=== PATIENT | male | born 1950 | race African-American/Black ===

== ENCOUNTER 2017-03-11 15:38 | Inpatient (IN) | payer OTHER ==
--- NOTE | 2017-03-11 17:33 | HP ---
CIWA Score - CIWA Score Nausea/Vomitin-Mild Nausea/No Vomiting Muscle Tremors: 4-Moderate,w/Arms Extend Anxiety: 4-Mod. Anxious/Guarded Agitation: 4-Moderately Restless Paroxysmal Sweats: 1-Minimal Palms Moist Orientation: 0-Oriented Tacttile Disturbances: 0-None Auditory Disturbances: 0-None Visual Disturbances: 0-None Headache: 0-None Present CIWA-Ar Total Score: 14 Admission ROS S - HPI Chief Complaint: withdrawal sx Allergies/Adverse Reactions: Allergies Allergy/AdvReac Type Severity Reaction Status Date / Time No Known Allergies Allergy Verified 03/11/17 16:48 History of Present Illness: 66 YEARS OLD MALE WITH LONG HISTORY OF ALCOHOL NICOTINE DEPENDENCE HAS HIV POSITIVE PPD CIRRHOSIS OF LIVER, HEPATITIS C AND DEPRESSION IS ADMITTED TO DETOX Exam Limitations: No Limitations - Ebola screening Have you traveled outside of the country in the last 21 days: No Have you had contact with anyone from an Ebola affected area: No Have you been sick,other than usual withdrawal symptoms: No Do you have a fever: No - Review of Systems Constitutional: Changes in sleep, Weight Stable EENT: reports: No Symptoms Reported Respiratory: reports: SOB with Exertion Cardiac: reports: No Symptoms Reported GI: reports: Constipated, Nausea, Poor Fluid Intake, Abdominal cramping : reports: No Symptoms Reported Musculoskeletal: reports: Muscle Weakness (BOTH KNEES) Integumentary: reports: No Symptoms Reported Neuro: reports: Tremors Endocrine: reports: No Symptoms Reported Hematology: reports: No Symptoms Reported Psychiatric: reports: Judgement Intact, Orientated x3, Anxious, Depressed Other Systems: Reviewed and Negative Patient History - Patient Medical History Hx Anemia: No Hx Asthma: No Hx Chronic Obstructive Pulmonary Disease (COPD): No Hx Cancer: No Hx Cardiac Disorders: No Hx Congestive Heart Failure: No Hx Hypertension: No Hx Hypercholesterolemia: No Hx Pacemaker: No HX Cerebrovascular Accident: No Hx Seizures: No Hx Dementia: No Hx Diabetes: No Hx Gastrointestinal Disorders: Yes (LIVER CIRRHOSIS) Hx Liver Disease: No Hx Genitourinary Disorders: No Hx Sexually Transmitted Disorders: No Hx Renal Disease (ESRD): No Hx Thyroid Disease: No Hx Human Immunodeficiency Virus (HIV): Yes (1990) Hx Hepatitis C: Yes Hx Depression: Yes Hx Suicide Attempt: No Hx Bipolar Disorder: No Hx Schizophrenia: No - Patient Surgical History Past Surgical History: No Hx Neurologic Surgery: No Hx Cataract Extraction: No Hx Cardiac Surgery: No Hx Lung Surgery: No Hx Breast Surgery: No Hx Breast Biopsy: No Hx Abdominal Surgery: No Hx Appendectomy: No Hx Cholecystectomy: No Hx Genitourinary Surgery: No Hx Orthopedic Surgery: No - PPD History Previous Implant?: Yes Documented Results: Positive w/proof Implanted On Prior [facility] Admission?: No PPD to be Administered?: No - Smoking Cessation Smoking history: Current every day smoker Have you smoked in the past 12 months: Yes Aproximately how many cigarettes per day: 20 Cigars Per Day: 0 Hx Chewing Tobacco Use: No Initiated information on smoking cessation: Yes 'Breaking Loose' booklet given: 03/11/17 - Substance & Tx. History Hx Alcohol Use: Yes Hx Substance Use: No Substance Use Type: Alcohol Hx Substance Use Treatment: Yes (11/2015) - Substances Abused Alcohol Route: Oral Frequency: Daily Amount used: LIQUOR- 1 QUART, BEER- 2 SIX PACKS Age of first use: 15 Date of Last Use: 03/11/17 Family Disease History - Family Disease History Family Disease History: Other: Father (), Sister (/ALCOHOL) Admission Physical Exam S - Vital Signs Vital Signs: Vital Signs - 24 hr 03/11/17 16:42 Temperature 98.6 F Pulse Rate 93 H Respiratory 18 Rate Blood Pressure 142/99 - Physical General Appearance: Yes: Appropriately Dressed, Mild Distress, Obese, Tremorous , Irritable, Sweating, Anxious HEENTM: Yes: Hearing grossly Normal, Normal ENT Inspection, Normocephalic, Normal Voice Respiratory: Yes: Chest Non-Tender, No Respiratory Distress, No Accessory Muscle Use, Wheezing Neck: Yes: Supple, Trachea in good position Breast: Yes: Breasts Symetrical Cardiology: Yes: Regular Rhythm, S1, S2, Tachycardia Abdominal: Yes: Non Tender, Soft, Decreased BS Genitourinary: Yes: Within Normal Limits Back: Yes: Normal Inspection Musculoskeletal: Yes: Gait Steady (CANE), Muscle Pain (BOTH KNEES) Extremities: Yes: Non-Tender, Tremors Neurological: Yes: Fully Oriented, Alert, Normal Response, Depressed Affect Integumentary: Yes: Warm Lymphatic: Yes: Within Normal Limits - Diagnostic (1) Alcohol dependence with uncomplicated withdrawal Current Visit: Yes Status: Acute (2) HIV (human immunodeficiency virus infection) Current Visit: Yes Status: Chronic (3) Positive PPD, treated Current Visit: Yes Status: Resolved (4) Nicotine dependence Current Visit: Yes Status: Acute Qualifiers: Nicotine product type: cigarettes Substance use status: in withdrawal Qualified Code(s): F17.213 - Nicotine dependence, cigarettes, with withdrawal (5) Hepatitis C carrier Current Visit: Yes Status: Resolved (6) BPH (benign prostatic hyperplasia) Current Visit: Yes Status: Chronic Qualifiers: Lower urinary tract symptom presence: symptoms present Lower urinary tract symptom detail: post-void dribbling Qualified Code(s): N40.1 - Benign prostatic hyperplasia with lower urinary tract symptoms; N39.43 - Post- void dribbling (7) Depression (emotion) Current Visit: Yes Status: Suspected Qualifiers: Depression Type: dysthymia Qualified Code(s): F34.1 - Dysthymic disorder (8) Constipation Current Visit: Yes Status: Chronic Qualifiers: Constipation type: slow transit constipation Qualified Code(s): K59.01 - Slow transit constipation Cleared for Admission S - Detox or Rehab [facility] Level of Care: Medically Managed Detox Regimen/Protocol: Librium [facility] Breath Alcohol Content Breath Alcohol Content: 0.112 Urine Drug Screen - Results Drug Screen Negative: Yes
[2017-03-11] MEDS ORDERED: MAGNESIUM CITRATE 300 ML BOTTLE PO PRN (17:36)
[2017-03-11] MEDS ORDERED: MAGNESIUM HYDROX 2400MG/30ML ORAL SUSPENSION 30 ML CUP PO PRN (17:36)
[2017-03-11] MEDS ORDERED: guaiFENesin/D-METHORPHAN HB 10 ML UNIT-DOSE CUPS PO PRN (17:36)
[2017-03-11] MEDS ORDERED: diphenhydrAMINE HCL 50 MG CAPSULE PO PRN (17:36)
[2017-03-11] MEDS ORDERED: LOPERAMIDE HCL 2 MG CAPSULE PO PRN (17:36)
[2017-03-11] MEDS ORDERED: MAG HYDROX/AL HYDROX/SIMETH 30 ML UNIT-DOSE CUP PO PRN (17:36)
[2017-03-11] MEDS ORDERED: NICOTINE POLACRILEX 4 MG GUM BC PRN (17:36)
[2017-03-11] MEDS ORDERED: chlordiazePOXIDE HCL 25 MG CAPSULE PO PRN (17:36)
[2017-03-11] MEDS ORDERED: ACETAMINOPHEN 325 MG TABLET (FP) PO PRN (17:36)
[2017-03-11] MEDS ORDERED: P-EPHED 60MG/TRIPROLIDI 2.5MG TABLET PO PRN (17:36)
[2017-03-11] MEDS ORDERED: MENTHOL/PHENOL 1 EACH UD MM PRN (17:36)
[2017-03-11] MEDS ORDERED: hydrOXYzine PAMOATE 50 MG CAPSULE (FP) PO PRN (17:36)
[2017-03-11] MEDS ORDERED: PSYLLIUM 5.85 GM PACKET PO PRN (17:49)
[2017-03-11] MEDS ORDERED: ALBUTEROL SO4 18 GM HFA INHALER IH PRN (17:51)
[2017-03-11] MEDS ORDERED: LACTULOSE 20 GM/30 ML UDC (FOR ORAL USE ONLY) PO PRN (17:58)
[2017-03-11] MEDS: IBUPROFEN 400 MG TABLET (FP) PO PRN (21:20)
[2017-03-11] MEDS: THIAMINE HCL 100 MG TABLET (FP) PO SCH (22:14)
[2017-03-11] MEDS: chlordiazePOXIDE HCL 25 MG CAPSULE PO SCH (22:15)
[2017-03-11] MEDS: TAMSULOSIN HCL 0.4 MG CAP.ER.24H (FP) PO SCH (22:15)
[2017-03-12] MEDS: chlordiazePOXIDE HCL 25 MG CAPSULE PO SCH ×4 (05:46→22:30)
[2017-03-12] MEDS ORDERED: cloNIDine HCL 0.1 MG TABLET PO ONE (08:02)
[2017-03-12 09:45] LABS: MCH 29.4 pg (25.7-33.7); MCHC 32.2 g/dl (32.0-35.9); MEAN CELL VOLUME 91.4 fl (80-96); MEAN PLT VOLUME 9.1 fl (7.5-11.1); PLATELET COUNT 89 K/MM3 (134-434); RDW 20.7 % (11.9-15.9); WHITE BLOOD COUNT 3.4 K/mm3 (4.0-10.0)
[2017-03-12 10:13] LABS: ALBUMIN 3.2 g/dl (3.4-5.0); ANION GAP 6 (8-16); CALCIUM 8.3 mg/dL (8.5-10.1); CO2 26 mmol/L (21-32); GLUCOSE,RANDOM 111 mg/dL (74-106); SGOT/AST 63 U/L (15-37); SGPT/ALT 31 U/L (12-78)
[2017-03-12 10:15] LABS: ALK PHOS 138 U/L (45-117); BILIRUBIN,TOTAL 1.3 mg/dL (0.2-1.0); TOT PROT 7.4 g/dl (6.4-8.2)
[2017-03-12] MEDS: PRENATAL VITAMINS W/ FOLIC ACID TABLET (FP) PO SCH (10:17)
[2017-03-12] MEDS: DARUNAVIR ETHANOLATE 800 MG TAB PO SCH (10:17)
[2017-03-12] MEDS: NICOTINE 21 MG/24 HOURS TOPICAL PATCH TD SCH (10:17)
--- NOTE | 2017-03-12 11:19 | PN ---
[facility] CIWA - CIWA Score Nausea/Vomitin Muscle Tremors: 4-Moderate,w/Arms Extend Anxiety: 5 Agitation: 2 Paroxysmal Sweats: 3 Orientation: 0-Oriented Tacttile Disturbances: 1-Very Mild Itch/Numbness Auditory Disturbances: 0-None Visual Disturbances: 2-Mild Sensitivity Headache: 0-None Present CIWA-Ar Total Score: 20 BHS Progress Note (SOAP) Subjective: Tremors, Body Aches, Interrupted sleep, Sweating, Anxious. Shortly after time of daily assessment, pt. reports discomfort in chest area ( central lower chest / epigastric area) and difficulty breathing starting with the last few minutes. Pt. denies any radiation of pain. Pt. reports that this occurrence has happened in the past and that when it occurred in the past each time it occurred, it resolved on its own without treatment within a short time of onset. Pt. denies any history of Respiratory disorder. Aside from, HTN, pt. denies any history of cardiac disease. Pt. denies any history of stomach disease. Objective: PT. A & O X 3, OBSERVED AMBULATING ON UNIT WITH ASSISTANCE OF A CANE. PT. APPEARS ANXIOUS. LUNG SOUNDS AUSCULTATED CLEAR AND EQUAL BILATERALLY. ECG DONE, RESULTS NOTED. 03/12/17 11:19 Vital Signs Temperature 97.5 F L 03/12/17 09:23 Pulse Rate 85 03/12/17 09:23 Respiratory Rate 18 03/12/17 09:23 Blood Pressure 141/91 03/12/17 09:23 O2 Sat by Pulse Oximetry (%) Laboratory Tests 03/12/17 08:00 WBC 3.4 L RBC 4.21 Hgb 12.4 Hct 38.5 MCV 91.4 MCH 29.4 MCHC 32.2 RDW 20.7 H Plt Count 89 L MPV 9.1 LABS NOTED. RESULTS OF CMP, UA AND RPR PENDING. Assessment: 03/12/17 11:20 WITHDRAWAL SYMPTOMS. Plan: CONTINUE DETOX. REGULARLY SCHEDULED DOSE OF LIBRIUM ADMINISTERED. PRN DOSE OF MYLANTA ADMINISTERED. PER PHARMACIST FROM PT.'S PHARMACY ([email or web address], [place], [place] PT. PRESCRIBED AMLODIPINE AND SPIRONOLACTONE FOR PRIOR TO ADMISSION TO DETOX. START AMLODIPINE, 5 MG PO DAILY (FIRST DOSE NOW) AND SPIRONOLACTONE, 25 MG PO DAILY ( FIRST DOSE NOW) ORDERED FOR HTN. WILL CONTINUE TO MONITOR.
--- NOTE | 2017-03-12 11:24 | CONSULT ---
[facility] Psychiatric Consult - Data Date of interview: 03/12/17 Admission source: [facility] Identifying data: First admission to [facility] for ths 66 y/o AA male seeking detox treatment on for alcohol dependence.Patient is single,a father of three,domiciled,disabled and supported on Public Assistance. Substance Abuse History: Discussed with patient in this interview.Report validated by patient. Smoking Cessation. Smoking history: Current every day smoker. Have you smoked in the past 12 months: Yes. Aproximately how many cigarettes per day: 20. Cigars Per Day: 0. Hx Chewing Tobacco Use: No. Initiated information on smoking cessation: Yes. 'Breaking Loose' booklet given : 03/11/17. - Substance & Tx. History. Hx Alcohol Use: Yes. Hx Substance Use : No. Substance Use Type: Alcohol. Hx Substance Use Treatment: Yes (11/2015). - Substances Abused. Alcohol. Route: Oral. Frequency: Daily. Amount used : LIQUOR- 1 QUART, BEER- 2 SIX PACKS. Age of first use: 15. 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 Psychiatric History: Patient denies. Physical/Sexual Abuse/Trauma History: Patient denies. Additional Comment: Drug Screen is negative. Mental Status Exam - Mental Status Exam Alert and Oriented to: Time, Place, Person Cognitive Function: Good Patient Appearance: Well Groomed Mood: Hopeful, Euthymic Affect: Appropriate, Normal Range Patient Behavior: Fatigued, Cooperative Speech Pattern: Clear, Appropriate Voice Loudness: Normal Thought Process: Goal Oriented Thought Disorder: Not Present Hallucinations: Denies Suicidal Ideation: Denies Homicidal Ideation: Denies Insight/Judgement: Poor Sleep: Poorly, Difficulty falling asleep Appetite: Good Gait/Station: Other (ambulates with cane) Psychiatric Findings - Problem List ([place] 1, 2,3) (1) Alcohol dependence with uncomplicated withdrawal Current Visit: Yes Status: Acute (2) Nicotine dependence Current Visit: Yes Status: Acute Qualifiers: Nicotine product type: cigarettes Substance use status: in withdrawal Qualified Code(s): F17.213 - Nicotine dependence, cigarettes, with withdrawal (3) BPH (benign prostatic hyperplasia) Current Visit: Yes Status: Chronic Qualifiers: Lower urinary tract symptom presence: symptoms present Lower urinary tract symptom detail: post-void dribbling Qualified Code(s): N40.1 - Benign prostatic hyperplasia with lower urinary tract symptoms; R35.0 - Frequency of micturition (4) HIV (human immunodeficiency virus infection) Current Visit: Yes Status: Chronic (5) Hepatitis C carrier Current Visit: Yes Status: Resolved (6) Positive PPD, treated Current Visit: Yes Status: Resolved (7) Insomnia Current Visit: Yes Status: Acute - Initial Treatment Plan Initial Treatment Plan: Psychoeducation.Detoxification in progress.Ambien 5 mg po hs (patient's request).Made aware of potential for parasomnias.Observation.
[2017-03-12] MEDS: amLODIPine BESYLATE 5 MG TABLET (FP) PO SCH (12:43)
[2017-03-12] MEDS: SPIRONOLACTONE 25 MG TABLET (FP) PO SCH (12:44)
[2017-03-12 19:45] LABS: URINE APPEARANCE SLCLOUDY; URINE BILIRUBIN NEGATIVE (NEGATIVE); URINE BLOOD 1+ (NEGATIVE); URINE COLOR AMBER; URINE GLUCOSE (UA) NEGATIVE (NEGATIVE); URINE KETONE TRACE (NEGATIVE); URINE LEUK ESTERASE NEGATIVE (NEGATIVE); URINE NITRITE NEGATIVE (NEGATIVE)
[2017-03-12 19:49] LABS: URINE PROTEIN 1+ (NEGATIVE)
[2017-03-12 19:57] LABS: URINE MUCUS FEW; URINE RBC 53 /hpf (0-3)
[2017-03-12] MEDS: IBUPROFEN 400 MG TABLET (FP) PO PRN (21:30)
[2017-03-12] MEDS: THIAMINE HCL 100 MG TABLET (FP) PO SCH (22:30)
[2017-03-12] MEDS: TAMSULOSIN HCL 0.4 MG CAP.ER.24H (FP) PO SCH (22:30)
[2017-03-12] MEDS: ZOLPIDEM TARTRATE 5 MG TABLET PO PRN (22:34)
[2017-03-13] MEDS: chlordiazePOXIDE HCL 25 MG CAPSULE PO SCH ×3 (05:48→17:18)
--- NOTE | 2017-03-13 09:52 | EKG ---
Test Reason : Blood Pressure : / mmHG Vent. Rate : 090 BPM Atrial Rate : 090 BPM P-R Int : 148 ms QRS Dur : 084 ms QT Int : 388 ms P-R-T Axes : 080 017 066 degrees QTc Int : 474 ms SINUS RHYTHM WITH PREMATURE ATRIAL COMPLEXES POSSIBLE LEFT ATRIAL ENLARGEMENT BORDERLINE ECG NO PREVIOUS ECGS AVAILABLE Confirmed by DEEPTI QUINN MD ([id number]) on 03/13/2017 9:52:01 AM Referred By: Confirmed By:DEEPTI QUINN MD
[2017-03-13] MEDS: amLODIPine BESYLATE 5 MG TABLET (FP) PO SCH (10:16)
[2017-03-13] MEDS: NICOTINE 21 MG/24 HOURS TOPICAL PATCH TD SCH (10:16)
[2017-03-13] MEDS: DARUNAVIR ETHANOLATE 800 MG TAB PO SCH (10:16)
[2017-03-13] MEDS: SPIRONOLACTONE 25 MG TABLET (FP) PO SCH (10:16)
[2017-03-13] MEDS: PRENATAL VITAMINS W/ FOLIC ACID TABLET (FP) PO SCH (10:16)
--- NOTE | 2017-03-13 12:57 | PN ---
[facility] CIWA - CIWA Score Nausea/Vomitin-No Nausea/No Vomiting Muscle Tremors: 3 Anxiety: 2 Agitation: 2 Paroxysmal Sweats: 1-Minimal Palms Moist Orientation: 2-Disoriented Date<2 days Tacttile Disturbances: 2-Mild Itch/Numbness/Burn Auditory Disturbances: 0-None Visual Disturbances: 2-Mild Sensitivity Headache: 0-None Present CIWA-Ar Total Score: 14 S Progress Note (SOAP) Subjective: Interrupted Sleep, Anxious, Body Aches. Objective: PT. A & O X 2 (DISORIENTED ABOUT DAY / DATE). PT. OBSERVED AMBULATING ON UNIT WITH ASSISTANCE OF A CANE. 03/13/17 12:52 Vital Signs Temperature 95.6 F L 03/13/17 09:21 Pulse Rate 68 03/13/17 09:21 Respiratory Rate 18 03/13/17 09:21 Blood Pressure 139/87 03/13/17 09:21 O2 Sat by Pulse Oximetry (%) Laboratory Tests 03/12/17 03/12/17 03/12/17 07:00 07:00 08:00 WBC 3.4 L RBC 4.21 Hgb 12.4 Hct 38.5 MCV 91.4 MCH 29.4 MCHC 32.2 RDW 20.7 H Plt Count 89 L MPV 9.1 Sodium 137 Potassium 3.5 Chloride 105 Carbon Dioxide 26 Anion Gap 6 L BUN 12 Creatinine 1.0 Creat Clearance w eGFR > 60 Random Glucose 111 H Calcium 8.3 L Total Bilirubin 1.3 H AST 63 H ALT 31 Alkaline Phosphatase 138 H Total Protein 7.4 Albumin 3.2 L Urine Color Urine Appearance Urine pH Ur Specific [place] Urine Protein Urine Glucose (UA) Urine Ketones Urine Blood Urine Nitrite Urine Bilirubin Urine Urobilinogen Urine RBC Urine WBC Ur Epithelial Cells Urine Mucus RPR Titer Nonreactive 03/12/17 19:29 WBC RBC Hgb Hct MCV MCH MCHC RDW Plt Count MPV Sodium Potassium Chloride Carbon Dioxide Anion Gap BUN Creatinine Creat Clearance w eGFR Random Glucose Calcium Total Bilirubin AST ALT Alkaline Phosphatase Total Protein Albumin Urine Color Ina Urine Appearance Slcloudy Urine pH 5.0 Ur Specific [place] 1.020 Urine Protein 1+ H Urine Glucose (UA) Negative Urine Ketones Trace H Urine Blood 1+ H Urine Nitrite Negative Urine Bilirubin Negative Urine Urobilinogen 2.0 Urine RBC 53 Urine WBC None Ur Epithelial Cells Rare Urine Mucus Few RPR Titer LABS NOTED. Assessment: 03/13/17 12:55 WITHDRAWAL SYMPTOMS. Plan: CONTINUE DETOX. INCREASE DAILY PO FLUID INTAKE. REPEAT UA; HEPATIC FUNCTION PANEL (03/14/2017) FOR ADMISSION ABNORMALITIES. PATIENT ADVISED TO FOLLOW-UP WITH HUMAN RELATIONS PROFESSOR DR. PECK ([facility]) AFTER DISCHARGE FROM DETOX FOR GENERAL MEDICAL ASSESSMENT AND FOR LOW ADMISSION PLATELET LEVEL.
[2017-03-13] MEDS: IBUPROFEN 400 MG TABLET (FP) PO PRN (17:19)
[2017-03-13] MEDS: ZOLPIDEM TARTRATE 5 MG TABLET PO PRN (22:17)
[2017-03-13] MEDS: THIAMINE HCL 100 MG TABLET (FP) PO SCH (22:18)
[2017-03-13] MEDS: chlordiazePOXIDE 5 MG CAPSULE PO SCH (22:18)
[2017-03-13] MEDS: TAMSULOSIN HCL 0.4 MG CAP.ER.24H (FP) PO SCH (22:18)
[2017-03-14] MEDS: chlordiazePOXIDE 5 MG CAPSULE PO SCH ×3 (05:38→17:29)
[2017-03-14 09:59] LABS: MCHC 31.6 g/dl (32.0-35.9); MEAN CELL VOLUME 91.7 fl (80-96); MEAN PLT VOLUME 9.4 fl (7.5-11.1); PLATELET COUNT 87 K/MM3 (134-434); RDW 20.3 % (11.9-15.9)
[2017-03-14] MEDS: SPIRONOLACTONE 25 MG TABLET (FP) PO SCH (10:20)
[2017-03-14] MEDS: DARUNAVIR ETHANOLATE 800 MG TAB PO SCH (10:20)
[2017-03-14] MEDS: PRENATAL VITAMINS W/ FOLIC ACID TABLET (FP) PO SCH (10:20)
[2017-03-14] MEDS: NICOTINE 21 MG/24 HOURS TOPICAL PATCH TD SCH (10:21)
[2017-03-14] MEDS: amLODIPine BESYLATE 5 MG TABLET (FP) PO SCH (10:21)
[2017-03-14 10:40] LABS: ALBUMIN 3.2 g/dl (3.4-5.0); BILIRUBIN,DIRECT 0.4 mg/dL (0.0-0.2)
--- NOTE | 2017-03-14 11:15 | PN ---
S Progress Note (SOAP) Subjective: ANXIETY,SWEATS,FATIGUE, Objective: 03/14/17 11:13 Vital Signs Temperature 97.0 F L 03/14/17 09:15 Pulse Rate 88 03/14/17 09:15 Respiratory Rate 20 03/14/17 09:15 Blood Pressure 145/89 03/14/17 09:15 O2 Sat by Pulse Oximetry (%) Laboratory Last Values WBC 4.0 K/mm3 (4.0-10.0) 03/14/17 07:00 RBC 4.18 M/mm3 (4.00-5.60) 03/14/17 07:00 Hgb 12.1 GM/dL (11.7-16.9) 03/14/17 07:00 Hct 38.4 % (35.4-49) 03/14/17 07:00 MCV 91.7 fl (80-96) 03/14/17 07:00 MCH 29.0 pg (25.7-33.7) 03/14/17 07:00 MCHC 31.6 g/dl (32.0-35.9) L 03/14/17 07:00 RDW 20.3 % (11.9-15.9) H 03/14/17 07:00 Plt Count 87 K/MM3 (134-434) L 03/14/17 07:00 MPV 9.4 fl (7.5-11.1) 03/14/17 07:00 Neutrophils % No Result Required. 03/14/17 07:00 Lymphocytes % No Result Required. 03/14/17 07:00 Sodium 137 mmol/L (136-145) 03/12/17 07:00 Potassium 3.5 mmol/L (3.5-5.1) 03/12/17 07:00 Chloride 105 mmol/L (98-107) 03/12/17 07:00 Carbon Dioxide 26 mmol/L (21-32) 03/12/17 07:00 Anion Gap 6 (8-16) L 03/12/17 07:00 BUN 12 mg/dL (7-18) 03/12/17 07:00 Creatinine 1.0 mg/dL (0.7-1.3) 03/12/17 07:00 Creat Clearance w eGFR > 60 (>60) 03/12/17 07:00 Random Glucose 111 mg/dL (74-106) H 03/12/17 07:00 Calcium 8.3 mg/dL (8.5-10.1) L 03/12/17 07:00 Total Bilirubin 1.3 mg/dL (0.2-1.0) H 03/12/17 07:00 AST 63 U/L (15-37) H 03/12/17 07:00 ALT 31 U/L (12-78) 03/12/17 07:00 Alkaline Phosphatase 138 U/L (45-117) H 03/12/17 07:00 Total Protein 7.4 g/dl (6.4-8.2) 03/12/17 07:00 Albumin 3.2 g/dl (3.4-5.0) L 03/12/17 07:00 Urine Color Ina 03/12/17 19:29 Urine Appearance Slcloudy 03/12/17 19:29 Urine pH 5.0 (5.0-8.0) 03/12/17 19:29 Ur Specific [place] 1.020 (1.005-1.025) 03/12/17 19:29 Urine Protein 1+ (NEGATIVE) H 03/12/17 19:29 Urine Glucose (UA) Negative (NEGATIVE) 03/12/17 19:29 Urine Ketones Trace (NEGATIVE) H 03/12/17 19:29 Urine Blood 1+ (NEGATIVE) H 03/12/17 19:29 Urine Nitrite Negative (NEGATIVE) 03/12/17 19:29 Urine Bilirubin Negative (NEGATIVE) 03/12/17 19:29 Urine Urobilinogen 2.0 mg/dL (0.2-1.0) 03/12/17 19:29 Urine RBC 53 /hpf (0-3) 03/12/17 19:29 Urine WBC None /hpf (3-5) 03/12/17 19:29 Ur Epithelial Cells Rare /hpf (FEW) 03/12/17 19:29 Urine Mucus Few 03/12/17 19:29 RPR Titer Nonreactive (NONREACTIVE) 03/12/17 07:00 REPEAT ABNORMAL LAB TESTS RESULTS PENDING Assessment: 03/14/17 11:13 WITHDRAWAL SX Plan: CONTINUE DETOX
[2017-03-14] MEDS: TOLNAFTATE 1% CREAM 15 GM TUBE TP SCH ×2 (11:39→22:41)
[2017-03-14 12:04] LABS: BASOPHIL (MANUAL) 1 % (0-2.0); METAMYELOCYTE 1 % (0-2); TOTAL CELLS COUNTED 100
[2017-03-14 12:05] LABS: PLATELET ESTIMATE DECREASED (NORMAL)
[2017-03-14 13:19] LABS: URINE APPEARANCE CLEAR; URINE BILIRUBIN NEGATIVE (NEGATIVE); URINE BLOOD 1+ (NEGATIVE); URINE COLOR YELLOW; URINE GLUCOSE (UA) NEGATIVE (NEGATIVE); URINE KETONE NEGATIVE (NEGATIVE); URINE LEUK ESTERASE NEGATIVE (NEGATIVE); URINE NITRITE NEGATIVE (NEGATIVE); URINE PROTEIN NEGATIVE (NEGATIVE)
[2017-03-14 13:48] LABS: URINE MUCUS RARE; URINE RBC 17 /hpf (0-3)
[2017-03-14] MEDS: IBUPROFEN 400 MG TABLET (FP) PO PRN (17:40)
[2017-03-14] MEDS: THIAMINE HCL 100 MG TABLET (FP) PO SCH (22:41)
[2017-03-14] MEDS: chlordiazePOXIDE HCL 10 MG CAPSULE PO SCH (22:41)
[2017-03-14] MEDS: TAMSULOSIN HCL 0.4 MG CAP.ER.24H (FP) PO SCH (22:41)
[2017-03-14] MEDS: ZOLPIDEM TARTRATE 5 MG TABLET PO PRN (22:41)
[2017-03-15] MEDS: chlordiazePOXIDE HCL 10 MG CAPSULE PO SCH ×3 (05:46→17:21)
[2017-03-15] MEDS: SPIRONOLACTONE 25 MG TABLET (FP) PO SCH (10:32)
[2017-03-15] MEDS: TOLNAFTATE 1% CREAM 15 GM TUBE TP SCH ×2 (10:32→21:38)
[2017-03-15] MEDS: DARUNAVIR ETHANOLATE 800 MG TAB PO SCH (10:32)
[2017-03-15] MEDS: PRENATAL VITAMINS W/ FOLIC ACID TABLET (FP) PO SCH (10:32)
[2017-03-15] MEDS: amLODIPine BESYLATE 5 MG TABLET (FP) PO SCH (10:32)
[2017-03-15] MEDS: NICOTINE 21 MG/24 HOURS TOPICAL PATCH TD SCH (10:34)
--- NOTE | 2017-03-15 14:24 | PN ---
[facility] Progress Note (SOAP) Subjective: Tremors, Diarrhea, Body Aches, Anxious, Fatigue. Objective: PT. A & O X 3, OBSERVED AMBULATING ON UNIT. NO ACUTE DISTRESS. 03/15/17 14:21 Vital Signs Temperature 96.3 F L 03/15/17 13:03 Pulse Rate 94 H 03/15/17 13:03 Respiratory Rate 18 03/15/17 13:03 Blood Pressure 141/72 03/15/17 13:03 O2 Sat by Pulse Oximetry (%) Laboratory Tests 03/12/17 03/12/17 03/12/17 07:00 07:00 08:00 WBC 3.4 L RBC 4.21 Hgb 12.4 Hct 38.5 MCV 91.4 MCH 29.4 MCHC 32.2 RDW 20.7 H Plt Count 89 L MPV 9.1 Total Counted Neutrophils % Neutrophils % (Manual) Lymphocytes % Lymphocytes % (Manual) Monocytes % (Manual) Eosinophils % (Manual) Basophils % (Manual) Platelet Estimate Sodium 137 Potassium 3.5 Chloride 105 Carbon Dioxide 26 Anion Gap 6 L BUN 12 Creatinine 1.0 Creat Clearance w eGFR > 60 Random Glucose 111 H Calcium 8.3 L Total Bilirubin 1.3 H Direct Bilirubin AST 63 H ALT 31 Alkaline Phosphatase 138 H Total Protein 7.4 Albumin 3.2 L Urine Color Urine Appearance Urine pH Ur Specific [place] Urine Protein Urine Glucose (UA) Urine Ketones Urine Blood Urine Nitrite Urine Bilirubin Urine Urobilinogen Urine RBC Urine WBC Ur Epithelial Cells Urine Mucus RPR Titer Nonreactive 03/12/17 03/14/17 03/14/17 19:29 07:00 07:00 WBC 4.0 RBC 4.18 Hgb 12.1 Hct 38.4 MCV 91.7 MCH 29.0 MCHC 31.6 L RDW 20.3 H Plt Count 87 L MPV 9.4 Total Counted 100 Neutrophils % No Result Required. Neutrophils % (Manual) 61 Lymphocytes % No Result Required. Lymphocytes % (Manual) 18 Monocytes % (Manual) 17 H* Eosinophils % (Manual) 2 Basophils % (Manual) 1 Platelet Estimate Decreased Sodium Potassium Chloride Carbon Dioxide Anion Gap BUN Creatinine Creat Clearance w eGFR Random Glucose Calcium Total Bilirubin 1.0 D Direct Bilirubin 0.4 H AST 41 H D ALT 30 Alkaline Phosphatase 175 H D Total Protein 7.0 Albumin 3.2 L Urine Color Ina Urine Appearance Slcloudy Urine pH 5.0 Ur Specific [place] 1.020 Urine Protein 1+ H Urine Glucose (UA) Negative Urine Ketones Trace H Urine Blood 1+ H Urine Nitrite Negative Urine Bilirubin Negative Urine Urobilinogen 2.0 Urine RBC 53 Urine WBC None Ur Epithelial Cells Rare Urine Mucus Few RPR Titer 03/14/17 10:30 WBC RBC Hgb Hct MCV MCH MCHC RDW Plt Count MPV Total Counted Neutrophils % Neutrophils % (Manual) Lymphocytes % Lymphocytes % (Manual) Monocytes % (Manual) Eosinophils % (Manual) Basophils % (Manual) Platelet Estimate Sodium Potassium Chloride Carbon Dioxide Anion Gap BUN Creatinine Creat Clearance w eGFR Random Glucose Calcium Total Bilirubin Direct Bilirubin AST ALT Alkaline Phosphatase Total Protein Albumin Urine Color Yellow Urine Appearance Clear Urine pH 6.0 Ur Specific [place] 1.020 Urine Protein Negative Urine Glucose (UA) Negative Urine Ketones Negative Urine Blood 1+ H Urine Nitrite Negative Urine Bilirubin Negative Urine Urobilinogen 2.0 Urine RBC 17 Urine WBC None Ur Epithelial Cells Urine Mucus Rare RPR Titer LABS NOTED. RESULTS OF HEPATIC FUNCTION PANEL, REPEAT CBC, AND REPEAT UA NOTED. 03/15/17 14:23 Assessment: 03/15/17 14:22 WITHDRAWAL SYMPTOMS. Plan: CONTINUE DETOX. PRN IMMODIUM FOR DIARRHEA.
[2017-03-15] MEDS: IBUPROFEN 400 MG TABLET (FP) PO PRN (19:18)
[2017-03-15] MEDS: THIAMINE HCL 100 MG TABLET (FP) PO SCH (21:37)
[2017-03-15] MEDS: TAMSULOSIN HCL 0.4 MG CAP.ER.24H (FP) PO SCH (21:38)
[2017-03-15] MEDS: ZOLPIDEM TARTRATE 5 MG TABLET PO PRN (21:38)
[2017-03-16] MEDS: DARUNAVIR ETHANOLATE 800 MG TAB PO SCH (10:13)
[2017-03-16] MEDS: PRENATAL VITAMINS W/ FOLIC ACID TABLET (FP) PO SCH (10:13)
[2017-03-16] MEDS: amLODIPine BESYLATE 5 MG TABLET (FP) PO SCH (10:13)
[2017-03-16] MEDS: SPIRONOLACTONE 25 MG TABLET (FP) PO SCH (10:13)
[2017-03-16] MEDS: TOLNAFTATE 1% CREAM 15 GM TUBE TP SCH ×2 (10:14→21:34)
[2017-03-16] MEDS: NICOTINE 21 MG/24 HOURS TOPICAL PATCH TD SCH (10:14)
--- NOTE | 2017-03-16 13:09 | EKG ---
Test Reason : Blood Pressure : / mmHG Vent. Rate : 070 BPM Atrial Rate : 070 BPM P-R Int : 148 ms QRS Dur : 084 ms QT Int : 410 ms P-R-T Axes : 048 -04 046 degrees QTc Int : 442 ms SINUS RHYTHM WITH PREMATURE ATRIAL COMPLEXES IN A PATTERN OF BIGEMINY OTHERWISE NORMAL ECG WHEN COMPARED WITH ECG OF 11-MAR-2017 19:15, NO SIGNIFICANT CHANGE WAS FOUND Confirmed by JHONNY BENDER MD ([id number]) on 03/16/2017 1:08:41 PM Referred By: Confirmed By:JHONNY BENDER MD
[2017-03-16 14:07] VITALS: BMI 29.5
--- NOTE | 2017-03-16 14:32 | DS ---
[facility] Detox Discharge Summary Admission Date: 03/11/17 Discharge Date: 03/16/17 - History Present History: Alcohol Dependence Additional Comments: PATIENT GOING TO [facility] FOR AFTERCARE. PATIENT WAS DISCHARGED FROM DETOX UNIT IN STABLE MEDICAL CONDITION TO BE TRANSFERRED TO REHAB UNIT. Pertinent Past History: BPH, Hep C, Insomnia, Depression, Nicotine Dependence, Liver Cirrhosis, History of Positive PPD (Treated), Constipation, HIV. - Physical Exam Results Vital Signs: Vital Signs Temperature 96.7 F L 03/16/17 13:16 Pulse Rate 90 03/16/17 13:16 Respiratory Rate 18 03/16/17 13:16 Blood Pressure 155/80 03/16/17 13:16 O2 Sat by Pulse Oximetry (%) Pertinent Admission Physical Exam Findings: WITHDRAWAL SYMPTOMS. Laboratory Tests 03/12/17 03/12/17 03/12/17 07:00 07:00 08:00 WBC 3.4 L RBC 4.21 Hgb 12.4 Hct 38.5 MCV 91.4 MCH 29.4 MCHC 32.2 RDW 20.7 H Plt Count 89 L MPV 9.1 Total Counted Neutrophils % Neutrophils % (Manual) Lymphocytes % Lymphocytes % (Manual) Monocytes % (Manual) Eosinophils % (Manual) Basophils % (Manual) Platelet Estimate Sodium 137 Potassium 3.5 Chloride 105 Carbon Dioxide 26 Anion Gap 6 L BUN 12 Creatinine 1.0 Creat Clearance w eGFR > 60 Random Glucose 111 H Calcium 8.3 L Total Bilirubin 1.3 H Direct Bilirubin AST 63 H ALT 31 Alkaline Phosphatase 138 H Total Protein 7.4 Albumin 3.2 L Urine Color Urine Appearance Urine pH Ur Specific [place] Urine Protein Urine Glucose (UA) Urine Ketones Urine Blood Urine Nitrite Urine Bilirubin Urine Urobilinogen Urine RBC Urine WBC Ur Epithelial Cells Urine Mucus RPR Titer Nonreactive 03/12/17 03/14/17 03/14/17 19:29 07:00 07:00 WBC 4.0 RBC 4.18 Hgb 12.1 Hct 38.4 MCV 91.7 MCH 29.0 MCHC 31.6 L RDW 20.3 H Plt Count 87 L MPV 9.4 Total Counted 100 Neutrophils % No Result Required. Neutrophils % (Manual) 61 Lymphocytes % No Result Required. Lymphocytes % (Manual) 18 Monocytes % (Manual) 17 H* Eosinophils % (Manual) 2 Basophils % (Manual) 1 Platelet Estimate Decreased Sodium Potassium Chloride Carbon Dioxide Anion Gap BUN Creatinine Creat Clearance w eGFR Random Glucose Calcium Total Bilirubin 1.0 D Direct Bilirubin 0.4 H AST 41 H D ALT 30 Alkaline Phosphatase 175 H D Total Protein 7.0 Albumin 3.2 L Urine Color In[place] Urine Appearance Slcloudy Urine pH 5.0 Ur Specific [place] 1.020 Urine Protein 1+ H Urine Glucose (UA) Negative Urine Ketones Trace H Urine Blood 1+ H Urine Nitrite Negative Urine Bilirubin Negative Urine Urobilinogen 2.0 Urine RBC 53 Urine WBC None Ur Epithelial Cells Rare Urine Mucus Few RPR Titer 03/14/17 10:30 WBC RBC Hgb Hct MCV MCH MCHC RDW Plt Count MPV Total Counted Neutrophils % Neutrophils % (Manual) Lymphocytes % Lymphocytes % (Manual) Monocytes % (Manual) Eosinophils % (Manual) Basophils % (Manual) Platelet Estimate Sodium Potassium Chloride Carbon Dioxide Anion Gap BUN Creatinine Creat Clearance w eGFR Random Glucose Calcium Total Bilirubin Direct Bilirubin AST ALT Alkaline Phosphatase Total Protein Albumin Urine Color Yellow Urine Appearance Clear Urine pH 6.0 Ur Specific [place] 1.020 Urine Protein Negative Urine Glucose (UA) Negative Urine Ketones Negative Urine Blood 1+ H Urine Nitrite Negative Urine Bilirubin Negative Urine Urobilinogen 2.0 Urine RBC 17 Urine WBC None Ur Epithelial Cells Urine Mucus Rare RPR Titer LABS NOTED. - Treatment Hospital Course: Detox Protocol Followed, Detoxed Safely, Responded well, Discharged Condition Good, Rehab Referral Accepted Patient has Accepted a Rehab Referral to: [facility]. - Medication Discharge Medications: Ambulatory Orders Amlodipine Besylate [Norvasc -] 5 mg PO DAILY 03/16/17 Lamivudine [Epivir -] 300 mg PO DAILY 03/16/17 Spironolactone [Aldactone] 25 mg PO DAILY 03/16/17 Tamsulosin HCl [Flomax] 0.4 mg PO HS 03/16/17 - Diagnosis (1) Alcohol dependence with uncomplicated withdrawal Current Visit: Yes Status: Acute (2) Nicotine dependence Current Visit: Yes Status: Chronic Qualifiers: Nicotine product type: cigarettes Substance use status: in withdrawal Qualified Code(s): F17.213 - Nicotine dependence, cigarettes, with withdrawal (3) HIV (human immunodeficiency virus infection) Current Visit: Yes Status: Chronic (4) BPH (benign prostatic hyperplasia) Current Visit: Yes Status: Chronic Qualifiers: Lower urinary tract symptom presence: symptoms present Lower urinary tract symptom detail: post-void dribbling Qualified Code(s): N40.1 - Benign prostatic hyperplasia with lower urinary tract symptoms; R35.0 - Frequency of micturition (5) Constipation Current Visit: Yes Status: Chronic Qualifiers: Constipation type: slow transit constipation Qualified Code(s): K59.01 - Slow transit constipation (6) Hepatitis C carrier Current Visit: Yes Status: Resolved (7) Positive PPD, treated Current Visit: Yes Status: Resolved (8) Insomnia Current Visit: Yes Status: Acute Qualifiers: Insomnia type: unspecified Qualified Code(s): G47.00 - Insomnia, unspecified (9) Depression (emotion) Current Visit: Yes Status: Suspected Qualifiers: Depression Type: dysthymia Qualified Code(s): F34.1 - Dysthymic disorder - AMA Did Patient Leave Against Medical Advice: No
--- NOTE | 2017-03-16 16:28 | HP ---
[facility] Rehab Assess/Revision - Admission History Admitted to Rehab from: [facility] Date of Admission to Rehab: 03/16/2017 - Vital signs Vital Signs: Vital Signs Period Temp Pulse Resp BP Sys/Decker Pulse Ox Last 24 Hr 96 F-97.9 F 44-103 18-19 133-155/69-84 - Findings Detox History & Physical reviewed: Yes Concur with findings: Yes Comments/Additional Findings: PATIENT'S MEDICAL / MEDICATION HISTORY REVIEWED PRIOR TO DISCHARGE FROM DETOX UNIT. PATIENT DISCHARGED FROM DETOX UNIT IN STABLE MEDICAL CONDITION TO BE TRANSFERRED TO REHAB UNIT. Inpatient Rehab Admission - Initial Determination Are CD services needed?: Yes Free of communicable disease: Yes Not in need of hospitalization: Yes - Rehab Admission Criteria Previous failed treatment: Yes Comorbidities: Yes Patient is meeting Inpatient Rehab admission criteria:: Yes
[2017-03-16] MEDS: IBUPROFEN 400 MG TABLET (FP) PO PRN (17:04)
[2017-03-16] MEDS: THIAMINE HCL 100 MG TABLET (FP) PO SCH (21:33)
[2017-03-16] MEDS: TAMSULOSIN HCL 0.4 MG CAP.ER.24H (FP) PO SCH (21:33)
[2017-03-16] MEDS: SUVOREXANT 10 MG TABLET PO PRN (21:34)
[2017-03-17] MEDS: DARUNAVIR ETHANOLATE 800 MG TAB PO SCH (09:44)
[2017-03-17] MEDS: amLODIPine BESYLATE 5 MG TABLET (FP) PO SCH (09:44)
[2017-03-17] MEDS: PRENATAL VITAMINS W/ FOLIC ACID TABLET (FP) PO SCH (09:44)
[2017-03-17] MEDS: NICOTINE 21 MG/24 HOURS TOPICAL PATCH TD SCH (09:44)
[2017-03-17] MEDS: SPIRONOLACTONE 25 MG TABLET (FP) PO SCH (09:44)
[2017-03-17] MEDS: TOLNAFTATE 1% CREAM 15 GM TUBE TP SCH ×2 (09:45→21:40)
[2017-03-17] MEDS: IBUPROFEN 400 MG TABLET (FP) PO PRN (09:46)
[2017-03-17] MEDS: TAMSULOSIN HCL 0.4 MG CAP.ER.24H (FP) PO SCH (21:40)
[2017-03-17] MEDS: THIAMINE HCL 100 MG TABLET (FP) PO SCH (21:40)
[2017-03-17] MEDS: SUVOREXANT 10 MG TABLET PO PRN (21:41)
[2017-03-18] MEDS: TOLNAFTATE 1% CREAM 15 GM TUBE TP SCH ×2 (11:02→22:48)
[2017-03-18] MEDS: NICOTINE 21 MG/24 HOURS TOPICAL PATCH TD SCH (11:02)
[2017-03-18] MEDS: SPIRONOLACTONE 25 MG TABLET (FP) PO SCH (11:02)
[2017-03-18] MEDS: amLODIPine BESYLATE 5 MG TABLET (FP) PO SCH (11:02)
[2017-03-18] MEDS: PRENATAL VITAMINS W/ FOLIC ACID TABLET (FP) PO SCH (11:02)
[2017-03-18] MEDS: DARUNAVIR ETHANOLATE 800 MG TAB PO SCH (11:02)
[2017-03-18] MEDS: IBUPROFEN 400 MG TABLET (FP) PO PRN (11:29)
--- NOTE | 2017-03-18 14:39 | HP ---
Psychiatrist Admission - Data Date of interview: 03/18/17 Admission source: [address] [place] [address] Identifying data: This is the first admission to [address] [place] [address] for this 67 years old AA single male,domiciled,retired. Medical History: Significant for Cirrhosis of the liver,HIV+,AIDS,Hep C. Psychiatric History: denies Physical/Sexual Abuse/Trauma History: denies Vital Signs: Vital Signs - 24 hr 03/18/17 03/18/17 03/18/17 00:30 03:30 06:19 Temperature 96 F L Pulse Rate 82 Respiratory 18 18 20 Rate Blood Pressure 134/86 03/18/17 11:00 Temperature 97.4 F L Pulse Rate 81 Respiratory 20 Rate Blood Pressure 139/75 Allergies/Adverse Reactions: Allergies Allergy/AdvReac Type Severity Reaction Status Date / Time No Known Allergies Allergy Verified 03/11/17 16:48 Date of last physical exam: 03/18/17 Concur with the findings of this exam: Yes - Substance Abuse/Tx History Hx Alcohol Use: Yes (reports drinking since 15 yo,1 quart of vodka,a few 6 packs of beer daily) Hx Substance Use: Yes Substance Use Type: Alcohol Hx Substance Use Treatment: Yes (longest period of abstinence about 10 years.) Mental Status Exam - Mental Status Exam Alert and Oriented to: Time, Place, Person Cognitive Function: Grossly Intact Patient Appearance: Unkempt Mood: Withdrawn Affect: Constricted Patient Behavior: Passive, Sedated, Fatigued, Cooperative Speech Pattern: Clear Voice Loudness: Mildly Soft/Quiet Thought Process: Goal Oriented Thought Disorder: Not Present Hallucinations: Denies Suicidal Ideation: Denies Homicidal Ideation: Denies Insight/Judgement: Fair Sleep: Difficulty falling asleep Appetite: Poor Muscle strength/Tone: Normal Gait/Station: Deferred Psychiatric Findings - Problem List ([place] 1, 2,3) (1) BPH (benign prostatic hyperplasia) Current Visit: Yes Status: Chronic Qualifiers: Lower urinary tract symptom presence: symptoms present Lower urinary tract symptom detail: post-void dribbling Qualified Code(s): N40.1 - Benign prostatic hyperplasia with lower urinary tract symptoms; N40.1 - Benign prostatic hyperplasia with lower urinary tract symptoms; R35.0 - Frequency of micturition; R35.0 - Frequency of micturition (2) HIV (human immunodeficiency virus infection) Current Visit: Yes Status: Chronic (3) Nicotine dependence Current Visit: Yes Status: Chronic Qualifiers: Nicotine product type: cigarettes Substance use status: in withdrawal Qualified Code(s): F17.213 - Nicotine dependence, cigarettes, with withdrawal; F17.213 - Nicotine dependence, cigarettes, with withdrawal (4) Hepatitis C carrier Current Visit: Yes Status: Resolved (5) Positive PPD, treated Current Visit: Yes Status: Resolved (6) Alcohol dependence Current Visit: Yes Status: Chronic - Initial Treatment Plan Initial Treatment Plan: Patient needs medical reevaluation (weakness,inability to stay out of bed,periods of confusion).Will monitor progress.
--- NOTE | 2017-03-18 14:56 | PN ---
S Progress Note Note: called to see patient c/o fatigue, no complaints other then bilateral knww poli awaiting surgery for knee replacements. Has beent aking sleeping medication which may be causing sedation o/e aand 0 x3, moving slowly a/p: repeat labs, stop sedating medication, ekg bedrest, shirlene bandage, obtain wheelchair for patient, d/w nurse and patient
[2017-03-18] MEDS: THIAMINE HCL 100 MG TABLET (FP) PO SCH (22:48)
[2017-03-18] MEDS: TAMSULOSIN HCL 0.4 MG CAP.ER.24H (FP) PO SCH (22:48)
--- NOTE | 2017-03-18 23:05 | PN ---
[facility] Progress Note Note: RECEIVED NURSE CALL THAT THE PATIENT NEEDS A [facility]ER CONTINUE REHAB
[2017-03-19] MEDS: SPIRONOLACTONE 25 MG TABLET (FP) PO SCH (09:54)
[2017-03-19] MEDS: DARUNAVIR ETHANOLATE 800 MG TAB PO SCH (09:55)
[2017-03-19] MEDS: PRENATAL VITAMINS W/ FOLIC ACID TABLET (FP) PO SCH (09:55)
[2017-03-19] MEDS: amLODIPine BESYLATE 5 MG TABLET (FP) PO SCH (09:55)
[2017-03-19] MEDS: NICOTINE 21 MG/24 HOURS TOPICAL PATCH TD SCH (09:56)
[2017-03-19] MEDS: TOLNAFTATE 1% CREAM 15 GM TUBE TP SCH ×2 (09:57→22:00)
[2017-03-19 15:38] LABS: BASOPHIL 0.9 % (0-2.0); EOSINOPHIL 1.2 % (0-4.5); MCH 30.1 pg (25.7-33.7); MCHC 32.1 g/dl (32.0-35.9); MEAN CELL VOLUME 93.7 fl (80-96); MEAN PLT VOLUME 10.6 fl (7.5-11.1); NEUTROPHILS 48.3 % (42.8-82.8); PLATELET COUNT 100 K/MM3 (134-434); RDW 20.5 % (11.9-15.9); WHITE BLOOD COUNT 4.4 K/mm3 (4.0-10.0)
[2017-03-19 16:05] LABS: ALBUMIN 3.4 g/dl (3.4-5.0); ALK PHOS 161 U/L (45-117); ANION GAP 7 (8-16); BILIRUBIN,TOTAL 0.6 mg/dL (0.2-1.0); CALCIUM 8.6 mg/dL (8.5-10.1); CO2 24 mmol/L (21-32); CREATININE 1.3 mg/dL (0.7-1.3); GLUCOSE,RANDOM 185 mg/dL (74-106); SGPT/ALT 42 U/L (12-78)
[2017-03-19 16:31] LABS: SGOT/AST 50 U/L (15-37)
--- NOTE | 2017-03-19 20:46 | EKG ---
Test Reason : Blood Pressure : / mmHG Vent. Rate : 075 BPM Atrial Rate : 075 BPM P-R Int : 000 ms QRS Dur : 086 ms QT Int : 414 ms P-R-T Axes : 266 011 063 degrees QTc Int : 462 ms BASELINE ARTIFACT SINUS RHYTHM WITH FREQUENT SUPRAVENTRICULAR PREMATURE BEATS NONSPECIFIC ST AND T WAVE ABNORMALITY ABNORMAL ECG WHEN COMPARED WITH ECG OF 12-MAR-2017 10:01, INCREASE IN APCs REPEAT EKG IF CLINICALLY INDICATED Confirmed by MILEY VALENCIA MD ([id number]) on 03/19/2017 8:45:22 PM Referred By: Confirmed By:MILEY VALENCIA MD
[2017-03-19] MEDS: THIAMINE HCL 100 MG TABLET (FP) PO SCH (21:59)
[2017-03-19] MEDS: TAMSULOSIN HCL 0.4 MG CAP.ER.24H (FP) PO SCH (21:59)
[2017-03-20] MEDS: SPIRONOLACTONE 25 MG TABLET (FP) PO SCH (10:25)
[2017-03-20] MEDS: PRENATAL VITAMINS W/ FOLIC ACID TABLET (FP) PO SCH (10:25)
[2017-03-20] MEDS: IBUPROFEN 400 MG TABLET (FP) PO PRN (10:25)
[2017-03-20] MEDS: amLODIPine BESYLATE 5 MG TABLET (FP) PO SCH (10:25)
[2017-03-20] MEDS: DARUNAVIR ETHANOLATE 800 MG TAB PO SCH (10:25)
[2017-03-20] MEDS: NICOTINE 21 MG/24 HOURS TOPICAL PATCH TD SCH (10:26)
[2017-03-20] MEDS: TOLNAFTATE 1% CREAM 15 GM TUBE TP SCH ×2 (10:26→21:39)
[2017-03-20] MEDS: TAMSULOSIN HCL 0.4 MG CAP.ER.24H (FP) PO SCH (21:39)
[2017-03-20] MEDS: THIAMINE HCL 100 MG TABLET (FP) PO SCH (21:39)
[2017-03-21] MEDS: NICOTINE 21 MG/24 HOURS TOPICAL PATCH TD SCH (09:58)
[2017-03-21] MEDS: TOLNAFTATE 1% CREAM 15 GM TUBE TP SCH ×2 (09:58→21:45)
[2017-03-21] MEDS: DARUNAVIR ETHANOLATE 800 MG TAB PO SCH (09:58)
[2017-03-21] MEDS: SPIRONOLACTONE 25 MG TABLET (FP) PO SCH (09:58)
[2017-03-21] MEDS: PRENATAL VITAMINS W/ FOLIC ACID TABLET (FP) PO SCH (09:58)
[2017-03-21] MEDS: amLODIPine BESYLATE 5 MG TABLET (FP) PO SCH (09:58)
[2017-03-21] MEDS: TAMSULOSIN HCL 0.4 MG CAP.ER.24H (FP) PO SCH (21:44)
[2017-03-21] MEDS: THIAMINE HCL 100 MG TABLET (FP) PO SCH (21:44)
[2017-03-22] MEDS: amLODIPine BESYLATE 5 MG TABLET (FP) PO SCH (10:31)
[2017-03-22] MEDS: TOLNAFTATE 1% CREAM 15 GM TUBE TP SCH ×2 (10:31→22:01)
[2017-03-22] MEDS: DARUNAVIR ETHANOLATE 800 MG TAB PO SCH (10:31)
[2017-03-22] MEDS: SPIRONOLACTONE 25 MG TABLET (FP) PO SCH (10:31)
[2017-03-22] MEDS: PRENATAL VITAMINS W/ FOLIC ACID TABLET (FP) PO SCH (10:31)
[2017-03-22] MEDS: NICOTINE 21 MG/24 HOURS TOPICAL PATCH TD SCH (10:32)
[2017-03-22] MEDS: THIAMINE HCL 100 MG TABLET (FP) PO SCH (22:01)
[2017-03-22] MEDS: TAMSULOSIN HCL 0.4 MG CAP.ER.24H (FP) PO SCH (22:01)
[2017-03-23] MEDS: DARUNAVIR ETHANOLATE 800 MG TAB PO SCH (09:42)
[2017-03-23] MEDS: TOLNAFTATE 1% CREAM 15 GM TUBE TP SCH ×2 (09:42→22:09)
[2017-03-23] MEDS: SPIRONOLACTONE 25 MG TABLET (FP) PO SCH (09:42)
[2017-03-23] MEDS: amLODIPine BESYLATE 5 MG TABLET (FP) PO SCH (09:42)
[2017-03-23] MEDS: PRENATAL VITAMINS W/ FOLIC ACID TABLET (FP) PO SCH (09:42)
[2017-03-23] MEDS: NICOTINE 21 MG/24 HOURS TOPICAL PATCH TD SCH (09:43)
[2017-03-23] MEDS: TAMSULOSIN HCL 0.4 MG CAP.ER.24H (FP) PO SCH (22:09)
[2017-03-23] MEDS: THIAMINE HCL 100 MG TABLET (FP) PO SCH (22:09)
[2017-03-24] MEDS: DARUNAVIR ETHANOLATE 800 MG TAB PO SCH (09:43)
[2017-03-24] MEDS: amLODIPine BESYLATE 5 MG TABLET (FP) PO SCH (09:43)
[2017-03-24] MEDS: SPIRONOLACTONE 25 MG TABLET (FP) PO SCH (09:43)
[2017-03-24] MEDS: PRENATAL VITAMINS W/ FOLIC ACID TABLET (FP) PO SCH (09:43)
[2017-03-24] MEDS: NICOTINE 21 MG/24 HOURS TOPICAL PATCH TD SCH (09:45)
[2017-03-24] MEDS: TOLNAFTATE 1% CREAM 15 GM TUBE TP SCH ×2 (09:45→22:08)
[2017-03-24] MEDS: CLOTRIMAZOLE 1% CREAM 15 GM TUBE TP SCH ×2 (15:25→22:08)
[2017-03-24] MEDS: TAMSULOSIN HCL 0.4 MG CAP.ER.24H (FP) PO SCH (22:08)
[2017-03-24] MEDS: THIAMINE HCL 100 MG TABLET (FP) PO SCH (22:08)
[2017-03-25] MEDS: NICOTINE 21 MG/24 HOURS TOPICAL PATCH TD SCH (10:33)
[2017-03-25] MEDS: DARUNAVIR ETHANOLATE 800 MG TAB PO SCH (10:33)
[2017-03-25] MEDS: amLODIPine BESYLATE 5 MG TABLET (FP) PO SCH (10:33)
[2017-03-25] MEDS: SPIRONOLACTONE 25 MG TABLET (FP) PO SCH (10:33)
[2017-03-25] MEDS: PRENATAL VITAMINS W/ FOLIC ACID TABLET (FP) PO SCH (10:33)
[2017-03-25] MEDS: TOLNAFTATE 1% CREAM 15 GM TUBE TP SCH ×2 (11:34→21:41)
[2017-03-25] MEDS: CLOTRIMAZOLE 1% CREAM 15 GM TUBE TP SCH ×2 (11:34→21:42)
[2017-03-25] MEDS: TAMSULOSIN HCL 0.4 MG CAP.ER.24H (FP) PO SCH (21:40)
[2017-03-25] MEDS: THIAMINE HCL 100 MG TABLET (FP) PO SCH (21:41)
[2017-03-26] MEDS: PRENATAL VITAMINS W/ FOLIC ACID TABLET (FP) PO SCH (11:06)
[2017-03-26] MEDS: DARUNAVIR ETHANOLATE 800 MG TAB PO SCH (11:06)
[2017-03-26] MEDS: SPIRONOLACTONE 25 MG TABLET (FP) PO SCH (11:07)
[2017-03-26] MEDS: amLODIPine BESYLATE 5 MG TABLET (FP) PO SCH (11:07)
[2017-03-26] MEDS: TOLNAFTATE 1% CREAM 15 GM TUBE TP SCH ×2 (11:07→21:53)
[2017-03-26] MEDS: NICOTINE 21 MG/24 HOURS TOPICAL PATCH TD SCH (11:09)
[2017-03-26] MEDS: CLOTRIMAZOLE 1% CREAM 15 GM TUBE TP SCH ×2 (11:09→21:52)
[2017-03-26 17:26] LABS: URINE APPEARANCE SLCLOUDY; URINE BILIRUBIN NEGATIVE (NEGATIVE); URINE BLOOD 1+ (NEGATIVE); URINE COLOR AMBER; URINE GLUCOSE (UA) NEGATIVE (NEGATIVE); URINE KETONE NEGATIVE (NEGATIVE); URINE NITRITE NEGATIVE (NEGATIVE); URINE PROTEIN NEGATIVE (NEGATIVE); URINE UROBILINOGEN NEGATIVE mg/dL (0.2-1.0)
[2017-03-26 18:59] LABS: URINE MUCUS FEW; URINE RBC 12 /hpf (0-3); URINE WBC 2 /hpf (3-5)
[2017-03-26 21:42] LABS: URINE LEUK ESTERASE Negative (NEGATIVE)
[2017-03-26] MEDS: THIAMINE HCL 100 MG TABLET (FP) PO SCH (21:51)
[2017-03-26] MEDS: TAMSULOSIN HCL 0.4 MG CAP.ER.24H (FP) PO SCH (21:51)
[2017-03-26] MEDS: diphenhydrAMINE HCL 25 MG CAPSULE (FP) PO PRN (21:52)
[2017-03-27] MEDS: SPIRONOLACTONE 25 MG TABLET (FP) PO SCH (10:39)
[2017-03-27] MEDS: CLOTRIMAZOLE 1% CREAM 15 GM TUBE TP SCH (10:39)
[2017-03-27] MEDS: DARUNAVIR ETHANOLATE 800 MG TAB PO SCH (10:39)
[2017-03-27] MEDS: amLODIPine BESYLATE 5 MG TABLET (FP) PO SCH (10:39)
[2017-03-27] MEDS: PRENATAL VITAMINS W/ FOLIC ACID TABLET (FP) PO SCH (10:40)
[2017-03-27] MEDS: TOLNAFTATE 1% CREAM 15 GM TUBE TP SCH ×2 (10:40→21:33)
[2017-03-27] MEDS: NICOTINE 21 MG/24 HOURS TOPICAL PATCH TD SCH (10:40)
[2017-03-27] MEDS: TAMSULOSIN HCL 0.4 MG CAP.ER.24H (FP) PO SCH (21:30)
[2017-03-27] MEDS: THIAMINE HCL 100 MG TABLET (FP) PO SCH (21:30)
[2017-03-27] MEDS: CLOTRIMAZOLE/BETAMET DIPROP TOPICAL CREAM 45 GM TUBE TP SCH (21:31)
[2017-03-27] MEDS: diphenhydrAMINE HCL 25 MG CAPSULE (FP) PO PRN (21:43)
[2017-03-28] MEDS: SPIRONOLACTONE 25 MG TABLET (FP) PO SCH (10:30)
[2017-03-28] MEDS: amLODIPine BESYLATE 5 MG TABLET (FP) PO SCH (10:30)
[2017-03-28] MEDS: DARUNAVIR ETHANOLATE 800 MG TAB PO SCH (10:30)
[2017-03-28] MEDS: TOLNAFTATE 1% CREAM 15 GM TUBE TP SCH ×2 (10:31→21:36)
[2017-03-28] MEDS: PRENATAL VITAMINS W/ FOLIC ACID TABLET (FP) PO SCH (10:31)
[2017-03-28] MEDS: CLOTRIMAZOLE/BETAMET DIPROP TOPICAL CREAM 45 GM TUBE TP SCH ×2 (10:31→21:33)
[2017-03-28] MEDS: NICOTINE 21 MG/24 HOURS TOPICAL PATCH TD SCH (10:32)
[2017-03-28] MEDS: TAMSULOSIN HCL 0.4 MG CAP.ER.24H (FP) PO SCH (21:32)
[2017-03-28] MEDS: THIAMINE HCL 100 MG TABLET (FP) PO SCH (21:32)
[2017-03-28] MEDS: diphenhydrAMINE HCL 25 MG CAPSULE (FP) PO PRN (21:36)
[2017-03-29] MEDS: DARUNAVIR ETHANOLATE 800 MG TAB PO SCH (10:27)
[2017-03-29] MEDS: CLOTRIMAZOLE/BETAMET DIPROP TOPICAL CREAM 45 GM TUBE TP SCH ×2 (10:27→21:37)
[2017-03-29] MEDS: PRENATAL VITAMINS W/ FOLIC ACID TABLET (FP) PO SCH (10:27)
[2017-03-29] MEDS: NICOTINE 21 MG/24 HOURS TOPICAL PATCH TD SCH (10:27)
[2017-03-29] MEDS: amLODIPine BESYLATE 5 MG TABLET (FP) PO SCH (10:27)
[2017-03-29] MEDS: SPIRONOLACTONE 25 MG TABLET (FP) PO SCH (10:27)
[2017-03-29] MEDS: TOLNAFTATE 1% CREAM 15 GM TUBE TP SCH ×2 (11:35→21:37)
[2017-03-29] MEDS: THIAMINE HCL 100 MG TABLET (FP) PO SCH (21:37)
[2017-03-29] MEDS: TAMSULOSIN HCL 0.4 MG CAP.ER.24H (FP) PO SCH (21:37)
[2017-03-29] MEDS: diphenhydrAMINE HCL 25 MG CAPSULE (FP) PO PRN (21:38)
[2017-03-30] MEDS: DARUNAVIR ETHANOLATE 800 MG TAB PO SCH (09:59)
[2017-03-30] MEDS: PRENATAL VITAMINS W/ FOLIC ACID TABLET (FP) PO SCH (09:59)
[2017-03-30] MEDS: SPIRONOLACTONE 25 MG TABLET (FP) PO SCH (09:59)
[2017-03-30] MEDS: amLODIPine BESYLATE 5 MG TABLET (FP) PO SCH (09:59)
[2017-03-30] MEDS: CLOTRIMAZOLE/BETAMET DIPROP TOPICAL CREAM 45 GM TUBE TP SCH ×2 (10:00→21:31)
[2017-03-30] MEDS: NICOTINE 21 MG/24 HOURS TOPICAL PATCH TD SCH (10:00)
[2017-03-30] MEDS: TOLNAFTATE 1% CREAM 15 GM TUBE TP SCH ×2 (10:00→21:31)
[2017-03-30] MEDS: TAMSULOSIN HCL 0.4 MG CAP.ER.24H (FP) PO SCH (21:31)
[2017-03-30] MEDS: diphenhydrAMINE HCL 25 MG CAPSULE (FP) PO PRN (21:32)
[2017-03-30] MEDS: THIAMINE HCL 100 MG TABLET (FP) PO SCH (21:32)
[2017-03-31] MEDS: DARUNAVIR ETHANOLATE 800 MG TAB PO SCH (09:50)
[2017-03-31] MEDS: SPIRONOLACTONE 25 MG TABLET (FP) PO SCH (09:50)
[2017-03-31] MEDS: amLODIPine BESYLATE 5 MG TABLET (FP) PO SCH (09:50)
[2017-03-31] MEDS: PRENATAL VITAMINS W/ FOLIC ACID TABLET (FP) PO SCH (09:50)
[2017-03-31] MEDS: NICOTINE 21 MG/24 HOURS TOPICAL PATCH TD SCH (09:51)
[2017-03-31] MEDS: CLOTRIMAZOLE/BETAMET DIPROP TOPICAL CREAM 45 GM TUBE TP SCH ×2 (09:51→21:32)
[2017-03-31] MEDS: TOLNAFTATE 1% CREAM 15 GM TUBE TP SCH ×2 (09:52→21:32)
[2017-03-31] MEDS: TAMSULOSIN HCL 0.4 MG CAP.ER.24H (FP) PO SCH (21:31)
[2017-03-31] MEDS: THIAMINE HCL 100 MG TABLET (FP) PO SCH (21:31)
[2017-03-31] MEDS: diphenhydrAMINE HCL 25 MG CAPSULE (FP) PO PRN (21:31)
[2017-04-01] MEDS: NICOTINE 21 MG/24 HOURS TOPICAL PATCH TD SCH (10:18)
[2017-04-01] MEDS: PRENATAL VITAMINS W/ FOLIC ACID TABLET (FP) PO SCH (10:18)
[2017-04-01] MEDS: amLODIPine BESYLATE 5 MG TABLET (FP) PO SCH (10:18)
[2017-04-01] MEDS: DARUNAVIR ETHANOLATE 800 MG TAB PO SCH (10:18)
[2017-04-01] MEDS: SPIRONOLACTONE 25 MG TABLET (FP) PO SCH (10:19)
[2017-04-01] MEDS: CLOTRIMAZOLE/BETAMET DIPROP TOPICAL CREAM 45 GM TUBE TP SCH ×2 (10:19→21:46)
[2017-04-01] MEDS: TOLNAFTATE 1% CREAM 15 GM TUBE TP SCH ×2 (10:20→21:46)
--- NOTE | 2017-04-01 12:49 | PN ---
[facility] Progress Note Note: repeated abnormal u/a - needs to f/u w PCP on discharge
--- NOTE | 2017-04-01 15:36 | PN ---
Psychiatric Progress Note Vital Signs: Vital Signs Period Temp Pulse Resp BP Sys/Decker Pulse Ox Last 24 Hr 97.6 F 79 16-18 130/68 Date of Session: 04/01/17 Chief Complaint:: "can't sleep". HPI: Patient is addression alcohol, nicotine dependence comrbid Insomnia. 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 Current Medications: Active Medications Generic Name Dose Route Start Last Admin Trade Name Freq PRN Reason Stop Dose Admin Acetaminophen 650 mg 03/11/17 17:36 Tylenol - PO Q4H PRN FEVER OR PAIN Al Hydroxide/Mg Hydroxide 30 ml 03/11/17 17:36 03/12/17 10:17 Mylanta Oral Suspension - PO 30 ml Q6H PRN Administration DYSPEPSIA Albuterol Sulfate 2 puff 03/11/17 17:51 Ventolin Hfa Inhaler - IH Q4H PRN SHORT OF BREATH/WHEEZING Amlodipine Besylate 5 mg 03/12/17 11:43 04/01/17 10:18 Norvasc - PO 5 mg DAILY STEPHANIE Administration Clotrimazole 1 applic 03/27/17 22:00 04/01/17 10:19 Lotrisone Cream (Large Tube) - TP 1 applic BID STEPHANIE Administration Darunavir 800 mg 03/12/17 10:00 04/01/17 10:18 Prezista - PO 800 mg DAILY STEPHANIE Administration Diphenhydramine HCl 25 mg 03/21/17 11:58 03/31/17 21:31 Benadryl - PO 25 mg HS PRN Administration INSOMNIA Eucalyptus/Menthol/Phenol/Sorbitol 1 each 03/11/17 17:36 Cepastat Lozenge - MM Q4H PRN SORE THROAT Ibuprofen 400 mg 03/11/17 17:36 03/20/17 10:25 Motrin - PO 400 mg Q6H PRN Administration SEVERE PAIN Lactulose 20 gm 03/11/17 17:58 Cephulac (Oral Use) PO DAILY PRN CONSTIPATION Lamivudine 300 mg 03/12/17 10:00 04/01/17 10:22 Epivir - PO 300 mg DAILY STEPHANIE Administration Loperamide HCl 4 mg 03/11/17 17:36 Imodium - PO Q6H PRN DIARRHEA Magnesium Citrate 300 ml 03/11/17 17:36 Citroma - PO Q48H PRN CONSTIPATION Magnesium Hydroxide 30 ml 03/11/17 17:36 03/12/17 11:04 Milk Of Magnesia - PO 30 ml DAILY PRN Administration CONSTIPATION Nicotine 21 mg 03/12/17 10:00 04/01/17 10:18 Nicoderm Patch - TD 21 mg DAILY STEPHANIE Administration Nicotine Polacrilex 4 mg 03/11/17 17:36 03/11/17 19:43 Nicorette Gum - BC 4 mg Q2H PRN Administration NICOTINE REPLACEMENT RX Multivit/Folic Acid/Iron 1 tab 03/12/17 10:00 04/01/17 10:18 Vitamins (Sjr) - PO 1 tab DAILY STEPHANIE Administration Psyllium Hydrophilic Mucilloid 5.85 gm 03/11/17 17:49 Metamucil (Sugar-Free) - PO DAILY PRN CONSTIPATION Spironolactone 25 mg 03/12/17 11:48 04/01/17 10:19 Aldactone - PO 25 mg DAILY STEPHANIE Administration Tamsulosin HCl 0.4 mg 04/02/17 10:00 Flomax - PO DAILY@1000 STEPHANIE Thiamine HCl 100 mg 03/11/17 22:00 03/31/17 21:31 Vitamin B1 - PO 100 mg HS STEPHANIE Administration Tolnaftate 1 applic 03/14/17 11:35 04/01/17 10:20 Tinactin 1% Cream - TP Not Given BID [facility] Medication(s) Change(s): increase Benadryl 50 mg po hs Current Side Effect: No Lab tests ordered: No Lab tests reviewed: Yes Provider note:: Reviewed the chart 's admission notes appreciated, patient was seen with c/o insomnia, he currently on Benadryl 25 mg po hs and as per pt not effective, discussed indications and properties of Benadryl with the patient, will increase to 50 mg po hs, contineu to monitor progress. Total face to face time:: 15 Mental Status Exam - Mental Status Exam Alert and Oriented to: Time, Place, Person Cognitive Function: Good Patient Appearance: Well Groomed Mood: Hopeful Affect: Appropriate, Mood Congruent Patient Behavior: Appropriate, Cooperative Speech Pattern: Clear, Appropriate Voice Loudness: Normal Thought Process: Intact Thought Disorder: Not Present Hallucinations: Denies Suicidal Ideation: Denies Homicidal Ideation: Denies Insight/Judgement: Fair Sleep: Poorly, Difficulty falling asleep Appetite: Fair Muscle strength/Tone: Normal Gait/Station: Normal Psychiatric Treatment Plan - Problem List (1) Insomnia Current Visit: Yes Qualifiers: Insomnia type: unspecified Qualified Code(s): G47.00 - Insomnia, unspecified; G47.00 - Insomnia, unspecified (2) Alcohol dependence Current Visit: Yes (3) Nicotine dependence Current Visit: Yes Qualifiers: Nicotine product type: cigarettes Substance use status: in withdrawal Qualified Code(s): F17.213 - Nicotine dependence, cigarettes, with withdrawal; F17.213 - Nicotine dependence, cigarettes, with withdrawal
[2017-04-01] MEDS: diphenhydrAMINE HCL 50 MG CAPSULE PO PRN (21:46)
[2017-04-01] MEDS: THIAMINE HCL 100 MG TABLET (FP) PO SCH (21:46)
[2017-04-02] MEDS: amLODIPine BESYLATE 5 MG TABLET (FP) PO SCH (09:54)
[2017-04-02] MEDS: SPIRONOLACTONE 25 MG TABLET (FP) PO SCH (09:55)
[2017-04-02] MEDS: DARUNAVIR ETHANOLATE 800 MG TAB PO SCH (09:55)
[2017-04-02] MEDS: PRENATAL VITAMINS W/ FOLIC ACID TABLET (FP) PO SCH (09:55)
[2017-04-02] MEDS: TOLNAFTATE 1% CREAM 15 GM TUBE TP SCH ×2 (09:55→21:27)
[2017-04-02] MEDS: NICOTINE 21 MG/24 HOURS TOPICAL PATCH TD SCH (09:55)
[2017-04-02] MEDS: TAMSULOSIN HCL 0.4 MG CAP.ER.24H (FP) PO SCH (09:55)
[2017-04-02] MEDS: CLOTRIMAZOLE/BETAMET DIPROP TOPICAL CREAM 45 GM TUBE TP SCH ×2 (09:57→21:27)
--- NOTE | 2017-04-02 11:03 | PN ---
Psychiatric Progress Note Vital Signs: Vital Signs Period Temp Pulse Resp BP Sys/Decker Pulse Ox Last 24 Hr 97.5 F 73 17-18 134/85 Date of Session: 04/02/17 Chief Complaint:: "insomnia" HPI: Patient is addression alcohol, nicotine dependence comrbid Insomnia. 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 Current Medications: Active Medications Generic Name Dose Route Start Last Admin Trade Name Freq PRN Reason Stop Dose Admin Acetaminophen 650 mg 03/11/17 17:36 Tylenol - PO Q4H PRN FEVER OR PAIN Al Hydroxide/Mg Hydroxide 30 ml 03/11/17 17:36 03/12/17 10:17 Mylanta Oral Suspension - PO 30 ml Q6H PRN Administration DYSPEPSIA Albuterol Sulfate 2 puff 03/11/17 17:51 Ventolin Hfa Inhaler - IH Q4H PRN SHORT OF BREATH/WHEEZING Amlodipine Besylate 5 mg 03/12/17 11:43 04/02/17 09:54 Norvasc - PO 5 mg DAILY STEPHANIE Administration Clotrimazole 1 applic 03/27/17 22:00 04/02/17 09:57 Lotrisone Cream (Large Tube) - TP 1 applic BID STEPHANIE Administration Darunavir 800 mg 03/12/17 10:00 04/02/17 09:55 Prezista - PO 800 mg DAILY STEPHANIE Administration Diphenhydramine HCl 50 mg 04/01/17 15:28 04/01/17 21:46 Benadryl - PO 50 mg HS PRN Administration INSOMNIA Eucalyptus/Menthol/Phenol/Sorbitol 1 each 03/11/17 17:36 Cepastat Lozenge - MM Q4H PRN SORE THROAT Ibuprofen 400 mg 03/11/17 17:36 03/20/17 10:25 Motrin - PO 400 mg Q6H PRN Administration SEVERE PAIN Lactulose 20 gm 03/11/17 17:58 Cephulac (Oral Use) PO DAILY PRN CONSTIPATION Lamivudine 300 mg 03/12/17 10:00 04/02/17 09:54 Epivir - PO 300 mg DAILY STEPHANIE Administration Loperamide HCl 4 mg 03/11/17 17:36 Imodium - PO Q6H PRN DIARRHEA Magnesium Citrate 300 ml 03/11/17 17:36 Citroma - PO Q48H PRN CONSTIPATION Magnesium Hydroxide 30 ml 03/11/17 17:36 03/12/17 11:04 Milk Of Magnesia - PO 30 ml DAILY PRN Administration CONSTIPATION Nicotine 21 mg 03/12/17 10:00 04/02/17 09:55 Nicoderm Patch - TD 21 mg DAILY STEPHANIE Administration Nicotine Polacrilex 4 mg 03/11/17 17:36 03/11/17 19:43 Nicorette Gum - BC 4 mg Q2H PRN Administration NICOTINE REPLACEMENT RX Multivit/Folic Acid/Iron 1 tab 03/12/17 10:00 04/02/17 09:55 Vitamins (Sjr) - PO 1 tab DAILY STEPHANIE Administration Psyllium Hydrophilic Mucilloid 5.85 gm 03/11/17 17:49 Metamucil (Sugar-Free) - PO DAILY PRN CONSTIPATION Spironolactone 25 mg 03/12/17 11:48 04/02/17 09:55 Aldactone - PO 25 mg DAILY STEPHANIE Administration Tamsulosin HCl 0.4 mg 04/02/17 10:00 04/02/17 09:55 Flomax - PO 0.4 mg DAILY@1000 STEPHANIE Administration Thiamine HCl 100 mg 03/11/17 22:00 04/01/17 21:46 Vitamin B1 - PO 100 mg HS STEPHANIE Administration Tolnaftate 1 applic 03/14/17 11:35 04/02/17 09:55 Tinactin 1% Cream - TP Not Given BID STEPHANIE Current Side Effect: No Lab tests ordered: No Lab tests reviewed: Yes Provider note:: Patient continue to c/o insomnia, reportts BEnadryl 50 mg pmo hs not effective and he feels tired today becouse was not sleeping "at all", indications and propertieos of Belsomra discussed with the patient will add Belsomra 5 mg po hs, continue to monitor progress. Total face to face time:: 15 Mental Status Exam - Mental Status Exam Alert and Oriented to: Time, Place, Person Cognitive Function: Grossly Intact Patient Appearance: Well Groomed Mood: Sad, Anxious Affect: Appropriate Patient Behavior: Appropriate, Cooperative Speech Pattern: Clear, Appropriate Voice Loudness: Normal Thought Process: Intact Hallucinations: Denies Suicidal Ideation: Denies Homicidal Ideation: Denies Insight/Judgement: Fair Sleep: Poorly, Difficulty falling asleep Appetite: Fair Gait/Station: Other (in wheelchair) Psychiatric Treatment Plan - Problem List (1) Insomnia Current Visit: Yes Qualifiers: Insomnia type: unspecified Qualified Code(s): G47.00 - Insomnia, unspecified; G47.00 - Insomnia, unspecified (2) Alcohol dependence Current Visit: Yes (3) Nicotine dependence Current Visit: Yes Qualifiers: Nicotine product type: cigarettes Substance use status: in withdrawal Qualified Code(s): F17.213 - Nicotine dependence, cigarettes, with withdrawal; F17.213 - Nicotine dependence, cigarettes, with withdrawal
[2017-04-02] MEDS: THIAMINE HCL 100 MG TABLET (FP) PO SCH (21:27)
[2017-04-02] MEDS: SUVOREXANT 5 MG TABLET PO SCH (21:27)
[2017-04-03] MEDS: TAMSULOSIN HCL 0.4 MG CAP.ER.24H (FP) PO SCH (10:22)
[2017-04-03] MEDS: amLODIPine BESYLATE 5 MG TABLET (FP) PO SCH (10:22)
[2017-04-03] MEDS: DARUNAVIR ETHANOLATE 800 MG TAB PO SCH (10:22)
[2017-04-03] MEDS: SPIRONOLACTONE 25 MG TABLET (FP) PO SCH (10:22)
[2017-04-03] MEDS: PRENATAL VITAMINS W/ FOLIC ACID TABLET (FP) PO SCH (10:22)
[2017-04-03] MEDS: CLOTRIMAZOLE/BETAMET DIPROP TOPICAL CREAM 45 GM TUBE TP SCH ×2 (10:23→21:29)
[2017-04-03] MEDS: NICOTINE 21 MG/24 HOURS TOPICAL PATCH TD SCH (10:23)
[2017-04-03] MEDS: TOLNAFTATE 1% CREAM 15 GM TUBE TP SCH ×2 (10:25→21:29)
[2017-04-03] MEDS: THIAMINE HCL 100 MG TABLET (FP) PO SCH (21:29)
[2017-04-03] MEDS: SUVOREXANT 5 MG TABLET PO SCH (21:29)
[2017-04-04] MEDS: SPIRONOLACTONE 25 MG TABLET (FP) PO SCH (09:57)
[2017-04-04] MEDS: NICOTINE 21 MG/24 HOURS TOPICAL PATCH TD SCH (09:57)
[2017-04-04] MEDS: amLODIPine BESYLATE 5 MG TABLET (FP) PO SCH (09:57)
[2017-04-04] MEDS: DARUNAVIR ETHANOLATE 800 MG TAB PO SCH (09:57)
[2017-04-04] MEDS: TAMSULOSIN HCL 0.4 MG CAP.ER.24H (FP) PO SCH (09:57)
[2017-04-04] MEDS: PRENATAL VITAMINS W/ FOLIC ACID TABLET (FP) PO SCH (09:57)
[2017-04-04] MEDS: TOLNAFTATE 1% CREAM 15 GM TUBE TP SCH ×2 (09:58→21:38)
[2017-04-04] MEDS: CLOTRIMAZOLE/BETAMET DIPROP TOPICAL CREAM 45 GM TUBE TP SCH ×2 (09:59→21:40)
[2017-04-04] MEDS: SUVOREXANT 5 MG TABLET PO SCH (21:37)
[2017-04-04] MEDS: THIAMINE HCL 100 MG TABLET (FP) PO SCH (21:37)
[2017-04-05] MEDS: SPIRONOLACTONE 25 MG TABLET (FP) PO SCH (10:35)
[2017-04-05] MEDS: amLODIPine BESYLATE 5 MG TABLET (FP) PO SCH (10:36)
[2017-04-05] MEDS: PRENATAL VITAMINS W/ FOLIC ACID TABLET (FP) PO SCH (10:36)
[2017-04-05] MEDS: DARUNAVIR ETHANOLATE 800 MG TAB PO SCH (10:36)
[2017-04-05] MEDS: TAMSULOSIN HCL 0.4 MG CAP.ER.24H (FP) PO SCH (10:36)
[2017-04-05] MEDS: NICOTINE 21 MG/24 HOURS TOPICAL PATCH TD SCH (10:36)
[2017-04-05] MEDS: CLOTRIMAZOLE/BETAMET DIPROP TOPICAL CREAM 45 GM TUBE TP SCH ×2 (10:39→21:47)
[2017-04-05] MEDS: TOLNAFTATE 1% CREAM 15 GM TUBE TP SCH ×2 (10:39→21:47)
[2017-04-05] MEDS: THIAMINE HCL 100 MG TABLET (FP) PO SCH (21:46)
[2017-04-05] MEDS: SUVOREXANT 5 MG TABLET PO SCH (21:46)
[2017-04-06] MEDS: amLODIPine BESYLATE 5 MG TABLET (FP) PO SCH (10:08)
[2017-04-06] MEDS: PRENATAL VITAMINS W/ FOLIC ACID TABLET (FP) PO SCH (10:08)
[2017-04-06] MEDS: SPIRONOLACTONE 25 MG TABLET (FP) PO SCH (10:08)
[2017-04-06] MEDS: TAMSULOSIN HCL 0.4 MG CAP.ER.24H (FP) PO SCH (10:09)
[2017-04-06] MEDS: DARUNAVIR ETHANOLATE 800 MG TAB PO SCH (10:09)
[2017-04-06] MEDS: NICOTINE 21 MG/24 HOURS TOPICAL PATCH TD SCH (10:10)
[2017-04-06] MEDS: TOLNAFTATE 1% CREAM 15 GM TUBE TP SCH ×2 (10:11→21:31)
[2017-04-06] MEDS: CLOTRIMAZOLE/BETAMET DIPROP TOPICAL CREAM 45 GM TUBE TP SCH ×2 (10:12→21:31)
[2017-04-06] MEDS: THIAMINE HCL 100 MG TABLET (FP) PO SCH (21:30)
[2017-04-06] MEDS: SUVOREXANT 5 MG TABLET PO SCH (21:32)
[2017-04-07] MEDS: NICOTINE 21 MG/24 HOURS TOPICAL PATCH TD SCH (10:29)
[2017-04-07] MEDS: CLOTRIMAZOLE/BETAMET DIPROP TOPICAL CREAM 45 GM TUBE TP SCH ×2 (10:30→21:35)
[2017-04-07] MEDS: TAMSULOSIN HCL 0.4 MG CAP.ER.24H (FP) PO SCH (10:31)
[2017-04-07] MEDS: TOLNAFTATE 1% CREAM 15 GM TUBE TP SCH ×2 (10:31→21:34)
[2017-04-07] MEDS: DARUNAVIR ETHANOLATE 800 MG TAB PO SCH (10:31)
[2017-04-07] MEDS: amLODIPine BESYLATE 5 MG TABLET (FP) PO SCH (10:31)
[2017-04-07] MEDS: SPIRONOLACTONE 25 MG TABLET (FP) PO SCH (10:31)
[2017-04-07] MEDS: PRENATAL VITAMINS W/ FOLIC ACID TABLET (FP) PO SCH (10:31)
[2017-04-07] MEDS: SUVOREXANT 5 MG TABLET PO SCH (21:32)
[2017-04-07] MEDS: THIAMINE HCL 100 MG TABLET (FP) PO SCH (21:33)
[2017-04-08] MEDS: amLODIPine BESYLATE 5 MG TABLET (FP) PO SCH (10:20)
[2017-04-08] MEDS: DARUNAVIR ETHANOLATE 800 MG TAB PO SCH (10:20)
[2017-04-08] MEDS: PRENATAL VITAMINS W/ FOLIC ACID TABLET (FP) PO SCH (10:20)
[2017-04-08] MEDS: TAMSULOSIN HCL 0.4 MG CAP.ER.24H (FP) PO SCH (10:20)
[2017-04-08] MEDS: NICOTINE 21 MG/24 HOURS TOPICAL PATCH TD SCH (10:20)
[2017-04-08] MEDS: TOLNAFTATE 1% CREAM 15 GM TUBE TP SCH ×2 (10:21→21:26)
[2017-04-08] MEDS: CLOTRIMAZOLE/BETAMET DIPROP TOPICAL CREAM 45 GM TUBE TP SCH ×2 (10:21→21:27)
[2017-04-08] MEDS: SPIRONOLACTONE 25 MG TABLET (FP) PO SCH (12:47)
[2017-04-08] MEDS: THIAMINE HCL 100 MG TABLET (FP) PO SCH (21:26)
[2017-04-08] MEDS: SUVOREXANT 5 MG TABLET PO SCH (21:28)
[2017-04-09] MEDS: TAMSULOSIN HCL 0.4 MG CAP.ER.24H (FP) PO SCH (10:27)
[2017-04-09] MEDS: DARUNAVIR ETHANOLATE 800 MG TAB PO SCH (10:27)
[2017-04-09] MEDS: amLODIPine BESYLATE 5 MG TABLET (FP) PO SCH (10:27)
[2017-04-09] MEDS: SPIRONOLACTONE 25 MG TABLET (FP) PO SCH (10:27)
[2017-04-09] MEDS: PRENATAL VITAMINS W/ FOLIC ACID TABLET (FP) PO SCH (10:27)
[2017-04-09] MEDS: TOLNAFTATE 1% CREAM 15 GM TUBE TP SCH ×3 (10:29→21:31)
[2017-04-09] MEDS: NICOTINE 21 MG/24 HOURS TOPICAL PATCH TD SCH (10:30)
[2017-04-09] MEDS: CLOTRIMAZOLE/BETAMET DIPROP TOPICAL CREAM 45 GM TUBE TP SCH (10:30)
[2017-04-09] MEDS: THIAMINE HCL 100 MG TABLET (FP) PO SCH (21:29)
[2017-04-09] MEDS: diphenhydrAMINE HCL 50 MG CAPSULE PO PRN (21:30)
[2017-04-10] MEDS: DARUNAVIR ETHANOLATE 800 MG TAB PO SCH (10:19)
[2017-04-10] MEDS: TAMSULOSIN HCL 0.4 MG CAP.ER.24H (FP) PO SCH (10:19)
[2017-04-10] MEDS: amLODIPine BESYLATE 5 MG TABLET (FP) PO SCH (10:19)
[2017-04-10] MEDS: PRENATAL VITAMINS W/ FOLIC ACID TABLET (FP) PO SCH (10:19)
[2017-04-10] MEDS: SPIRONOLACTONE 25 MG TABLET (FP) PO SCH (10:19)
[2017-04-10] MEDS: TOLNAFTATE 1% CREAM 15 GM TUBE TP SCH ×2 (10:20→21:40)
[2017-04-10] MEDS: NICOTINE 21 MG/24 HOURS TOPICAL PATCH TD SCH (10:20)
[2017-04-10] MEDS: diphenhydrAMINE HCL 50 MG CAPSULE PO PRN (21:39)
[2017-04-10] MEDS: THIAMINE HCL 100 MG TABLET (FP) PO SCH (21:39)
[2017-04-11 07:11] VITALS: BP 137/62; PULSE 73; TEMP 97.6
--- NOTE | 2017-04-11 09:15 | PN ---
Psychiatric Progress Note Vital Signs: Vital Signs Period Temp Pulse Resp BP Sys/Decker Pulse Ox Last 24 Hr 97.6 F 71-73 16-18 137-141/62-84 Date of Session: 04/11/17 Chief Complaint:: discharge visit HPI: Patient is addression alcohol, nicotine dependence comrbid Insomnia. 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) Current Medications: Active Medications Generic Name Dose Route Start Last Admin Trade Name Freq PRN Reason Stop Dose Admin Acetaminophen 650 mg 03/11/17 17:36 Tylenol - PO Q4H PRN FEVER OR PAIN Al Hydroxide/Mg Hydroxide 30 ml 03/11/17 17:36 03/12/17 10:17 Mylanta Oral Suspension - PO 30 ml Q6H PRN Administration DYSPEPSIA Albuterol Sulfate 2 puff 03/11/17 17:51 Ventolin Hfa Inhaler - IH Q4H PRN SHORT OF BREATH/WHEEZING Amlodipine Besylate 5 mg 03/12/17 11:43 04/10/17 10:19 Norvasc - PO 5 mg DAILY STEPHANIE Administration Darunavir 800 mg 03/12/17 10:00 04/10/17 10:19 Prezista - PO 800 mg DAILY STEPHANIE Administration Diphenhydramine HCl 50 mg 04/01/17 15:28 04/10/17 21:39 Benadryl - PO 50 mg HS PRN Administration INSOMNIA Eucalyptus/Menthol/Phenol/Sorbitol 1 each 03/11/17 17:36 Cepastat Lozenge - MM Q4H PRN SORE THROAT Ibuprofen 400 mg 03/11/17 17:36 03/20/17 10:25 Motrin - PO 400 mg Q6H PRN Administration SEVERE PAIN Lactulose 20 gm 03/11/17 17:58 Cephulac (Oral Use) PO DAILY PRN CONSTIPATION Lamivudine 300 mg 03/12/17 10:00 04/10/17 10:19 Epivir - PO 300 mg DAILY STEPHANIE Administration Loperamide HCl 4 mg 03/11/17 17:36 Imodium - PO Q6H PRN DIARRHEA Magnesium Citrate 300 ml 03/11/17 17:36 Citroma - PO Q48H PRN CONSTIPATION Magnesium Hydroxide 30 ml 03/11/17 17:36 03/12/17 11:04 Milk Of Magnesia - PO 30 ml DAILY PRN Administration CONSTIPATION Nicotine 21 mg 03/12/17 10:00 04/10/17 10:20 Nicoderm Patch - TD 21 mg DAILY STEPHANIE Administration Nicotine Polacrilex 4 mg 03/11/17 17:36 03/11/17 19:43 Nicorette Gum - BC 4 mg Q2H PRN Administration NICOTINE REPLACEMENT RX Multivit/Folic Acid/Iron 1 tab 03/12/17 10:00 04/10/17 10:19 Vitamins (Sjr) - PO 1 tab DAILY STEPHANIE Administration Psyllium Hydrophilic Mucilloid 5.85 gm 03/11/17 17:49 Metamucil (Sugar-Free) - PO DAILY PRN CONSTIPATION Spironolactone 25 mg 03/12/17 11:48 04/10/17 10:19 Aldactone - PO 25 mg DAILY STEPHANIE Administration Tamsulosin HCl 0.4 mg 04/02/17 10:00 04/10/17 10:19 Flomax - PO 0.4 mg DAILY@1000 STEPHANIE Administration Thiamine HCl 100 mg 03/11/17 22:00 04/10/17 21:39 Vitamin B1 - PO 100 mg HS STEPHANIE Administration Tolnaftate 1 applic 04/09/17 12:45 04/10/17 21:40 Tinactin 1% Cream - TP 1 applic BID STEPHANIE Administration Current Side Effect: No Lab tests ordered: No Lab tests reviewed: Yes Provider note:: Patient has completed today his treatment and met his goals, will continue to address his isues at [facility]. He reports feeling much better his sleep is improved, he is more energetic and hopeful. He was encouraged to continue maintain abstinence and utilize all suppors availble to prevent relapses. patient is stable for discharge today. Total face to face time:: 25 Mental Status Exam - Mental Status Exam Alert and Oriented to: Time, Place, Person Cognitive Function: Good Patient Appearance: Well Groomed Mood: Hopeful Affect: Appropriate, Mood Congruent, Normal Range Patient Behavior: Appropriate, Cooperative Speech Pattern: Clear, Appropriate Voice Loudness: Normal Thought Process: Intact, Goal Oriented Thought Disorder: Not Present Hallucinations: Denies Suicidal Ideation: Denies Homicidal Ideation: Denies Insight/Judgement: Fair Sleep: Well Appetite: Good Muscle strength/Tone: Normal Gait/Station: Other Psychiatric Treatment Plan - Problem List (1) Insomnia Current Visit: Yes Qualifiers: Insomnia type: unspecified Qualified Code(s): G47.00 - Insomnia, unspecified; G47.00 - Insomnia, unspecified (2) Alcohol dependence Current Visit: Yes (3) Nicotine dependence Current Visit: Yes Qualifiers: Nicotine product type: cigarettes Substance use status: in withdrawal Qualified Code(s): F17.213 - Nicotine dependence, cigarettes, with withdrawal; F17.213 - Nicotine dependence, cigarettes, with withdrawal
[2017-04-11] MEDS: DARUNAVIR ETHANOLATE 800 MG TAB PO SCH (09:47)
[2017-04-11] MEDS: PRENATAL VITAMINS W/ FOLIC ACID TABLET (FP) PO SCH (09:47)
[2017-04-11] MEDS: TAMSULOSIN HCL 0.4 MG CAP.ER.24H (FP) PO SCH (09:47)
[2017-04-11] MEDS: amLODIPine BESYLATE 5 MG TABLET (FP) PO SCH (09:47)
[2017-04-11] MEDS: SPIRONOLACTONE 25 MG TABLET (FP) PO SCH (09:47)
[2017-04-11] MEDS: TOLNAFTATE 1% CREAM 15 GM TUBE TP SCH (09:47)
[2017-04-11] MEDS: NICOTINE 21 MG/24 HOURS TOPICAL PATCH TD SCH (09:48)
== END 2017-04-11 10:50 | disposition home or self-care (01) | DRG 895 ==
LOC: YASAS 15:38 → Y3N 17:30 → Y5N 03-16 11:22
PROVIDERS: ADMIT Internal Medicine; ATTEND Psychiatry & Neurology Psychiatry
PROC: HZ2ZZZZ Detoxification Services for Substance Abuse Treatment (ICD-10-PCS; principal; 2017-03-11)
PROC: HZ42ZZZ Group Counseling for Substance Abuse Treatment, Cognitive-Behavioral (ICD-10-PCS; 2017-03-16)
DX: F10.230 Alcohol dependence with withdrawal, uncomplicated (principal); F17.213 Nicotine dependence, cigarettes, with withdrawal; F34.1 Dysthymic disorder; Z21 Asymptomatic human immunodeficiency virus [HIV] infection status; N40.0 Benign prostatic hyperplasia without lower urinary tract symptoms; G47.00 Insomnia, unspecified; B18.2 Chronic viral hepatitis C; R76.11 Nonspecific reaction to tuberculin skin test without active tuberculosis; K59.01 Slow transit constipation; K74.60 Unspecified cirrhosis of liver; Z89.021 Acquired absence of right finger(s); E66.9 Obesity, unspecified; Z68.29 Body mass index [BMI] 29.0-29.9, adult; R00.0 Tachycardia, unspecified
CPT/HCPCS: 36415; 71020-TC; 80053; 80076; 81003; 81015; 85025; 85027; 86593; 93005; 93010

== ENCOUNTER 2019-05-22 17:15 | Emergency (ER) | payer OTHER ==
[2019-05-22 17:48] VITALS: TEMP 97.8; BMI 29.8
--- NOTE | 2019-05-22 18:13 | PDOC ---
History of Present Illness - General Chief Complaint: Shortness of Breath Stated Complaint: DIFFICULTY BREATHING Time Seen by Provider: 05/22/19 17:27 - History of Present Illness Initial Comments: Mr. Poole is a 69 y/o male with PMH significant for HIV (unsure of last CD4 counts), cirrhosis, ETOH and heroin abuse on methadone treatment, presenting with several months of mild shortness of breath at rest and malaise. Sent in by detox after presenting there today. Reports that he has been feeling this way and "feels generally bad." Denies specific pain or complaints. Reports that his last drink was this morning. Not able to describe the shortness of breath in additional detail. Denies fever. Denies chest pain. Denies headache. Denies abdominal pain. Reports constipation. Denies dysuria. Denies leg swelling. Past History - Past Medical History Allergies/Adverse Reactions: Allergies Allergy/AdvReac Type Severity Reaction Status Date / Time No Known Allergies Allergy Verified 05/22/19 17:48 Home Medications: Ambulatory Orders Albuterol Sulfate Inhaler - [Ventolin HFA Inhaler -] 2 puff IH Q4H PRN #1 inhaler 04/10/17 Tamsulosin HCl [Flomax] 0.4 mg PO HS #30 cap.sr 04/10/17 Celecoxib [Celebrex -] 200 mg PO BID 05/22/19 Citalopram Hydrobromide [Celexa -] 10 mg PO DAILY 05/22/19 Darunavir/Cobicistat [Prezcobix 800 mg-150 mg Tablet] 1 each PO DAILY 05/22/19 Diphenhydramine HCl 25 mg PO HS 05/22/19 Emtricitabine/Tenofov Alafenam [Descovy 200-25 mg Tablet (Nf)] 1 each PO DAILY 05/22/19 Prednisone [Prednisone 50 MG TABLETS] 50 mg PO DAILY 4 Days #4 tablet 05/22/19 Zolpidem Tartrate [Ambien] 10 mg PO HS 05/22/19 Anemia: No Asthma: No Cancer: No Cardiac Disorders: No CVA: No COPD: No CHF: No Dementia: No Diabetes: No GI Disorders: Yes Disorders: No HTN: Yes Hypercholesterolemia: No Kidney Stones: No Liver Disease: No Seizures: No Thyroid Disease: No - Surgical History Abdominal Surgery: No Appendectomy: No Cardiac Surgery: No Cholecystectomy: No Lung Surgery: No Neurologic Surgery: No Orthopedic Surgery: No - Reproductive History Testicular Surgery: Yes (Circumcision) - Psycho Social/Smoking Cessation Hx Smoking History: Never smoked Have you smoked in the past 12 months: No Number of Cigarettes Smoked Daily: 20 Cigars Per Day: 0 Information on smoking cessation initiated: No 'Breaking Loose' booklet given: 05/22/19 Hx Alcohol Use: No Drug/Substance Use Hx: No Substance Use Type: Alcohol Hx Substance Use Treatment: Yes (longest period of abstinence about 10 years.) Review of Systems - Review of Systems Comments:: GENERAL/CONSTITUTIONAL: No fever or chills. No weakness. Reports generalized malaise. HEAD, EYES, EARS, NOSE AND THROAT: No change in vision. No change in hearing. No sore throat._ CARDIOVASCULAR: No chest pain. Reports mild shortness of breath. RESPIRATORY: Denies cough, hemoptysis_ GASTROINTESTINAL: No nausea, vomiting, diarrhea. Reports constipation. GENITOURINARY: No dysuria, frequency, or change in urination._ MUSCULOSKELETAL: No joint or muscle swelling or pain. No neck or back pain._ SKIN: No rash_ NEUROLOGIC: No headache, vertigo, loss of consciousness, or change in strength/ sensation._ ENDOCRINE: No increased thirst. No abnormal weight change_ HEMATOLOGIC/LYMPHATIC: No anemia, easy bleeding, or history of blood clots._ ALLERGIC/IMMUNOLOGIC: No hives or skin allergy._ *Physical Exam - Vital Signs Last Vital Signs Temp Pulse Resp BP Pulse Ox 97.8 F 71 16 144/97 100 05/22/19 17:15 05/22/19 17:15 05/22/19 17:15 05/22/19 17:15 05/22/19 17:15 - Physical Exam GENERAL: Awake, alert, and oriented to person/place/time, in no acute distress_ HEAD: No signs of trauma, normocephalic, atraumatic _ EYES: PERRLA, EOMI, sclera anicteric, conjunctiva clear_ ENT: Hearing grossly normal, nares patent, oropharynx clear without exudates. No uvular deviation. Moist mucosa_ NECK: Normal ROM, supple, no lymphadenopathy, JVD, or masses_ LUNGS: No distress, speaks in full sentences, clear to auscultation bilaterally. No wheezes, rales, rhonchi. HEART: Regular rate and rhythm, normal S1 and S2, no murmurs appreciated, peripheral pulses normal and equal bilaterally._ ABDOMEN: Soft, nontender, normoactive bowel sounds. No guarding, no rebound. No masses_ EXTREMITIES: Normal inspection, Normal range of motion, no edema. No clubbing or cyanosis_ NEUROLOGICAL: Cranial nerves II through XII grossly intact. Normal speech, normal gait, no focal sensorimotor deficits _ SKIN: Warm, Dry, normal turgor, no rashes or lesions noted_ ED Treatment Course - LABORATORY CBC & Chemistry Diagram: 05/22/19 18:10 05/22/19 18:02 - RADIOLOGY Radiology Studies Ordered: Category Date Time Status CHEST X-RAY PORTABLE* [RAD] Stat Radiology 05/22/19 18:02 Ordered Medical Decision Making - Medical Decision Making 05/22/19 18:10 69M sent in from detox for shortness of breath over the past several months. -cbc, cmp, coags, bnp -cxr, ekg, trop -1L fluids 05/22/19 18:20 EKG shows NSR, 75 bpm, no ST elevation/depression, no axis deivation, QTc 457. 05/22/19 21:07 Labs reviewed. Laboratory Tests 05/22/19 05/22/19 05/22/19 18:02 18:10 18:10 WBC 4.0 RBC 5.26 Hgb 16.4 Hct 49.2 H D MCV 93.7 MCH 31.3 MCHC 33.4 RDW 16.5 H Plt Count 134 D MPV 8.6 D Absolute Neuts (auto) 1.8 Neutrophils % 43.6 Lymphocytes % 41.4 H D Monocytes % 13.8 H Eosinophils % 0.4 Basophils % 0.8 Nucleated RBC % 0 PT with INR 14.00 H INR 1.18 H PTT (Actin FS) 38.4 H Sodium 141 Potassium 4.0 Chloride 108 H Carbon Dioxide 24 Anion Gap 9 BUN 19.4 H Creatinine 1.3 Est GFR (CKD-EPI)AfAm 64.98 Est GFR (CKD-EPI)NonAf 56.06 Random Glucose 80 Calcium 8.3 L Total Bilirubin 0.8 AST 125 H ALT 109 H Alkaline Phosphatase 182 H Creatine Kinase Creatine Kinase Index CK-MB (CK-2) Troponin I B-Natriuretic Peptide 63.2 Total Protein 7.6 Albumin 3.4 05/22/19 18:10 WBC RBC Hgb Hct MCV MCH MCHC RDW Plt Count MPV Absolute Neuts (auto) Neutrophils % Lymphocytes % Monocytes % Eosinophils % Basophils % Nucleated RBC % PT with INR INR PTT (Actin FS) Sodium Potassium Chloride Carbon Dioxide Anion Gap BUN Creatinine Est GFR (CKD-EPI)AfAm Est GFR (CKD-EPI)NonAf Random Glucose Calcium Total Bilirubin AST ALT Alkaline Phosphatase Creatine Kinase 151 Creatine Kinase Index 1.5 CK-MB (CK-2) 2.3 Troponin I < 0.02 B-Natriuretic Peptide Total Protein Albumin Self read of CXR shows no acute intra-thoracic pathology. Plan to d/c to [facility] for detox. Patient verbalized understanding and agreement with plan. All questions answered. Discharge - Discharge Information Problems reviewed: Yes Clinical Impression/Diagnosis: Difficulty breathing, Shortness of breath Condition: Stable Disposition: [facility] - Admission No - Additional Discharge Information Prescriptions: Prednisone [Prednisone 50 MG TABLETS] 50 mg PO DAILY 4 Days #4 tablet - Follow up/Referral Referrals: ON STAFF,NOT [Primary Care Provider] - - Patient Discharge Instructions Additional Instructions: Please keep yourself hydrated and nourished as much as possible. Please follow up with [facility] for detox. Please take Prednisone 50 mg once per day for 4 days. If you experience any new, worsening, or concerning symptoms, including severe nausea, vomiting, chest pain, shortness of breath, or any other concerns, please return to the emergency department. - Post Discharge Activity
[2019-05-22 18:33] LABS: BASO % 0.8 % (0-2.0); EOS % 0.4 % (0-4.5); HEMATOCRIT 49.2 % (35.4-49); HEMOGLOBIN 16.4 GM/dL (11.7-16.9); LYMPH % 41.4 % (8-40); MCH 31.3 pg (25.7-33.7); MCHC 33.4 g/dl (32.0-35.9); MEAN CELL VOLUME 93.7 fl (80-96); MEAN PLT VOLUME 8.6 fl (7.5-11.1); MONO % 13.8 % (3.8-10.2); NEUT % 43.6 % (42.8-82.8); PLATELET COUNT 134 K/MM3 (134-434); RBC 5.26 M/mm3 (4.00-5.60); RDW 16.5 % (11.9-15.9)
[2019-05-22] MEDS ORDERED: SODIUM CHLORIDE 0.9% 500 ML INFUS.BAG IV ONE (18:39)
[2019-05-22 18:55] LABS: INR 1.18 (0.83-1.09)
[2019-05-22 18:58] LABS: ACTIVATED PTT 38.4 SECONDS (25.2-36.5)
[2019-05-22] MEDS ORDERED: ALBUTEROL SO4 2.5/IPRATROPIUM 0.5 INH SOL 3 ML VIAL.NEB. NEB ONE ×2 (19:03→19:17)
[2019-05-22] MEDS ORDERED: predniSONE 20 MG TABLET (UD) PO ONE (19:03)
[2019-05-22 19:15] LABS: ALBUMIN 3.4 g/dl (3.4-5.0); BILIRUBIN,TOTAL 0.8 mg/dL (0.2-1); BLOOD UREA NITROGEN 19.4 mg/dL (7-18); CALCIUM 8.3 mg/dL (8.5-10.1); CREATININE 1.3 mg/dL (0.55-1.3); N-TERMINAL BNP 63.2 pg/ml (5-125); TOT PROT 7.6 g/dl (6.4-8.2)
[2019-05-22] MEDS ORDERED: predniSONE 20 MG TABLET (UD) ONE (19:17)
--- NOTE | 2019-05-22 20:39 | PDOC ---
Documentation entered by Mathew Sosa SCRIBE, acting as scribe for Mell Calvo MD. Mell Calvo MD: This documentation has been prepared by the Sheila salazar Nirvannie, SCRIBE, under my direction and personally reviewed by me in its entirety. I confirm that the documentation accurately reflects all work, treatment, procedures, and medical decision making performed by me. Attending Attestation - Resident Resident Name: [place] - ED Attending Attestation I have performed the following: I have examined & evaluated the patient, The case was reviewed & discussed with the resident, I agree w/resident's findings & plan, Exceptions are as noted - HPI HPI: 05/22/19 19:55 The patient is a 69 year old male, with a significant past medical history of HIV (unknown CD4 count, compliant with HAART) cirrhosis, and polysubstance abuse (EtOh and heroin, on methadone), who [facility] department [facility] with 6 months of intermittent shortness of breath and malaise. As per patient, he went to detox today and told the facility he "feels generally bad and like I'm going to ." Pt was sent for evaluation at this point. He reports the SOB lasts for seconds to minutes at a time, but can not elaborate further. Denies associated CP, coughing. SOB is not worse with exertion. He denies SOB. Currently, pt denies any recent fevers, chills, headache, dizziness or focal weakness/numbness. He denies any recent nausea, vomit, diarrhea or constipation. He denies any palpitations. He denies any recent dysuria, frequency, urgency or hematuria. Denies LE edema or calf pain. He tried his albuterol inhaler a few times, he states w/o improvement. Allergies: NKDA - Physicial Exam PE: 05/22/19 20:35 GENERAL: Awake, alert, and fully oriented, in no acute distress. Well appearing , ambulating in the ED w/o resp distress HEAD: No signs of trauma EYES: PERRLA, EOMI, sclera anicteric, conjunctiva clear ENT: Auricles normal inspection, hearing grossly normal, nares patent, oropharynx clear without exudates. Moist mucosa NECK: Normal ROM, supple, no lymphadenopathy, JVD, or masses LUNGS: Breath sounds equal, clear to auscultation bilaterally. No wheezes, and no crackles HEART: Regular rate and rhythm, normal S1 and S2, no murmurs, rubs or gallops ABDOMEN: Soft, nontender, normoactive bowel sounds. No guarding, no rebound. No masses EXTREMITIES: Normal range of motion, no edema. No clubbing or cyanosis. No cords, erythema, or tenderness NEUROLOGICAL: Normal speech, cranial nerves intact, negative pronator drift, 5/ 5 strength in all 4 extremities, normal sensation to light touch in all 4 extremities, normal cerebellar exam, normal gait, normal reflexes and tone SKIN: Warm, Dry, normal turgor, no rashes or lesions noted. - Medical Decision Making 05/22/19 20:35 69-year-old male presents emergency department with 6 months of intermittent shortness of breath and generalized malaise. Vitals within normal limits. Exam unremarkable, with clear lungs. Labs were checked to evaluate for ischemia or heart failure, anemia, electrolyte abnormalities. Other than elevated LFTs consistent with known cirrhosis, labs are unremarkable. Chest x-ray is clear with no pneumonia, pleural effusions, or other causes for shortness of breath We treated with nebs and steroids, pt repoting significant improvement. Lungs clear, pt in no resp distress with normal amb sat. Will DC with course of prednisone. He is eager for discharge back to [facility]. He requests food which we have provided. Patient is clinically stable for discharge back to [facility] at this time. I discussed the physical exam findings, ancillary test results and final diagnoses with the patient. I answered all of the patient's questions. The patient was satisfied with the care received and felt comfortable with the discharge plan and treatment plan. The patient will call their primary care physician within 24 hours to arrange follow-up and will return to the Emergency Department with any new, persistent or worsening symptoms. Heart Score/ECG Review #1 05/22/19 20:38 Twelve-lead EKG was performed and reviewed by me. Normal sinus rhythm, rate 75. Normal axis and intervals. No ST elevations or T wave inversions.
[2019-05-22 21:52] VITALS: BP 141/94; PULSE 68
--- NOTE | 2019-05-23 23:19 | EKG ---
Test Reason : Blood Pressure : / mmHG Vent. Rate : 075 BPM Atrial Rate : 075 BPM P-R Int : 146 ms QRS Dur : 084 ms QT Int : 410 ms P-R-T Axes : 033 -15 057 degrees QTc Int : 457 ms NORMAL SINUS RHYTHM NORMAL ECG WHEN COMPARED WITH ECG OF 18-MAR-2017 13:35, PREMATURE ATRIAL COMPLEXES ARE NOT SEEN Confirmed by ADRI OWUSU MD ([id number]) on 05/23/2019 11:18:25 PM Referred By: Confirmed By:ADRI OWUSU MD
[2019-05-24] MEDS ORDERED: CITALOPRAM HYDROBROMIDE 10 MG TABLET (FP) PO SCH (10:00)
== END 2019-05-22 21:50 | disposition other institution (70) ==
LOC: JER 17:15
PROC: 3E0F7GC Introduction of Other Therapeutic Substance into Respiratory Tract, Via Natural or Artificial Opening (ICD-10-PCS; principal; 2019-05-22)
DX: K74.60 Unspecified cirrhosis of liver (principal); R06.02 Shortness of breath; F10.10 Alcohol abuse, uncomplicated; F11.20 Opioid dependence, uncomplicated; Z21 Asymptomatic human immunodeficiency virus [HIV] infection status
CPT/HCPCS: 36415; 71045-TC-FY; 80053; 82550; 82553; 83880; 84484; 85025; 85610; 85730; 93005; 93010; 94640; 99283-25

== ENCOUNTER 2019-05-22 22:18 | Inpatient (IN) | payer OTHER ==
[2019-05-22 14:08] VITALS: BMI 29.8
--- NOTE | 2019-05-22 16:11 | HP ---
"CIWA Score Nausea/Vomitin Muscle Tremors: None Anxiety: 0-No Anxiety, at Ease Agitation: 2 Paroxysmal Sweats: 2 Orientation: 1-Uncertain about Date Tacttile Disturbances: 0-None Auditory Disturbances: 2-Mild Harshness/Frighten Visual Disturbances: 3-Moderate Sensitivity Headache: 0-None Present CIWA-Ar Total Score: 13 - Admission Criteria OASAS Guidelines: Admission for Medically Managed Detox: Requires at least one of the followin. CIWA greater than 12 2. Seizures within the past 24 hours 3. Delirium tremens within the past 24 hours 4. Hallucinations within the past 24 hours 5. Acute intervention needed for co occurring medical disorder 6. Acute intervention needed for co occurring psychiatric disorder 7. Severe withdrawal that cannot be handled at a lower level of care (continued vomiting, continued diarrhea, abnormal vital signs) requiring intravenous medication and/or fluids 8. Admitting History and Physical - Smoking History Smoking history: Current every day smoker Have you smoked in the past 12 months: Yes Aproximately how many cigarettes per day: 20 - Alcohol/Substance Use Hx Alcohol Use: Yes (reports drinking since 15 yo,1 quart of vodka,a few 6 packs of beer daily) Admission [facility] Allergies/Adverse Reactions: Allergies Allergy/AdvReac Type Severity Reaction Status Date / Time No Known Allergies Allergy Verified 05/22/19 17:48 History of Present Illness: This report was requested by: Angela Desai | Reference #: [id number] Others' Prescriptions Patient Name: Perry Poole Date: 1950 Address: [place] [address] Sex: Male Rx Written Rx Dispensed Drug Quantity Days Supply Prescriber Name 06/16/2018 06/19/2018 oxycodone hcl 10 mg tablet 60 10 Branden Guerra ([place]) pt here requesting detox from etoh use , reports 1 pint /day since 1 yr ago , per MR previous detox at this facility 2016 , denies seizures, + blackouts , reports occasional tremors . Pt is poor historian 2/2 intoxication . Pt reports shortness of breath x several months' duration . MMTP - methadone 30 mg q d PMHX : HIV on meds reports compliance , liver cirrhosis , left knee TKR 1 yr ago w/ residual pain and limitation of motion, using walker . Exam Limitations: Clinical Condition, Intoxication - Ebola screening Have you traveled outside of the country in the last 21 days: No Have you had contact with anyone from an Ebola affected area: No Do you have a fever: No - Review of Systems Constitutional: Loss of Appetite EENT: reports: Other (reading glasses) Respiratory: reports: Shortness of Breath (x 1-2 months) GI: reports: Constipated, Nausea, Poor Appetite : reports: Urgency Musculoskeletal: reports: Joint Pain (jessica knees) Integumentary: reports: No Symptoms Reported Neuro: reports: Unsteady Gait Endocrine: reports: No Symptoms Reported Psychiatric: reports: Depressed, Disorientated Patient History - Patient Medical History Hx Anemia: No Hx Asthma: No Hx Chronic Obstructive Pulmonary Disease (COPD): No Hx Cancer: No Hx Cardiac Disorders: No Hx Congestive Heart Failure: No Hx Hypertension: Yes Hx Hypercholesterolemia: No Hx Pacemaker: No HX Cerebrovascular Accident: No Hx Seizures: No Hx Dementia: No Hx Diabetes: No Hx Gastrointestinal Disorders: Yes Hx Liver Disease: No Hx Genitourinary Disorders: No Hx Sexually Transmitted Disorders: Yes (Tx for gonorrhea and herpes) Hx Renal Disease (ESRD): No Hx Thyroid Disease: No Hx Human Immunodeficiency Virus (HIV): Yes (1990) Hx Hepatitis C: Yes (tx 2 years ago ) Hx Depression: Yes Hx Suicide Attempt: No Hx Bipolar Disorder: No Hx Schizophrenia: No - Patient Surgical History Past Surgical History: Yes Hx Neurologic Surgery: No Hx Cataract Extraction: No Hx Cardiac Surgery: No Hx Lung Surgery: No Hx Breast Surgery: No Hx Breast Biopsy: No Hx Abdominal Surgery: No Hx Appendectomy: No Hx Cholecystectomy: No Hx Genitourinary Surgery: No Hx Section: No Hx Orthopedic Surgery: No Anesthesia Reaction: No - PPD History Results: +PPD , NEG CXR - Smoking Cessation Smoking history: Current every day smoker Have you smoked in the past 12 months: Yes Aproximately how many cigarettes per day: 20 Cigars Per Day: 0 Hx Chewing Tobacco Use: No Initiated information on smoking cessation: Yes 'Breaking Loose' booklet given: 05/22/19 - Substances abused Alcohol Substance route: Oral Frequency: Daily Amount used: LIQUOR- 1PT Age of first use: 17 Date of last use: 05/22/19 Admission Physical Exam BHS - Vital Signs Vital Signs: Vital Signs - 24 hr 05/22/19 13:52 Temperature 98.4 F Pulse Rate 94 H Respiratory 20 Rate Blood Pressure 175/119 H - Physical General Appearance: Yes: Moderate Distress, Intoxicated HEENTM: Yes: EOMI, Hearing grossly Normal, Normocephalic, Normal Voice, Other ( missing teeth) Respiratory: Yes: Chest Non-Tender, Lungs Clear, Decreased Breath Sounds, Labored Respiration, Other (sitting up leaning forward) Neck: Yes: No masses,lesions,Nodules, Trachea in good position Cardiology: Yes: Regular Rhythm, Regular Rate, S1, S2 Abdominal: Yes: Non Tender, Soft Back: Yes: Normal Inspection Musculoskeletal: Yes: Joint Stiffness ( jessica knees), Other (unsteady gait) Neurological: Yes: Alert, Motor Strength 5/5, Depressed Affect Integumentary: Yes: Warm - Addiitonal Findings: pt sent to [facility] ED for further eval of SOB . - Diagnostic (1) Alcohol dependence with uncomplicated withdrawal Current Visit: Yes Status: Acute (2) Nicotine dependence Current Visit: Yes Status: Chronic Qualifiers: Nicotine product type: cigarettes Breathalyzer - Breathalyzer Breathalyzer: 0.135 Urine Drug Screen - Test Device Lot number: [id number] Expiration date: 01/14/21 - Control Is test valid?: Yes - Results Drug screen NEGATIVE: No Urine drug screen results: MTD-Methadone Inpatient Rehab Admission - Rehab Decision to Admit Inpatient rehab admission?: No"
--- NOTE | 2019-05-22 23:41 | PN ---
[facility] Progress Note Note: Patient returns from [facility] ED after being evaluated for SOB. Dx: Difficulty Breathing Reviewed [facility] ED and S H&P. Alert and oriented w/ gross tremors of hands. Patient continues w/ mouth breathing that sounds like a wind tunnel. Pulse Ox = 96 %. Patient w/ HX HIV+ and did not brings medications; chronic knee pain - uses a walker; Alcohol use disorder. On methadone maintenance (HELP). EKG/CXR/Labs in ED. ED Labs reviewed. Plan: Write detox admission orders. Prednisone 50 mg PO Daily x 4 per ED recommendations Albuterol neb q8h x 2 days. Encourage smoking cessation. Encourage call to patient's home pharmacy to attempt to determine compliance.
[2019-05-22] MEDS ORDERED: NICOTINE POLACRILEX 2 MG GUM BUC PRN (23:45)
[2019-05-22] MEDS ORDERED: MAG HYDROX/AL HYDROX/SIMETH 30 ML UNIT-DOSE CUP PO PRN (23:45)
[2019-05-22] MEDS ORDERED: ACETAMINOPHEN 325 MG TABLET (FP) PO PRN ×2 (23:45)
[2019-05-22] MEDS ORDERED: guaiFENesin 200 MG/10 ML 10 ML UNIT-DOSE CUPS PO PRN (23:45)
[2019-05-22] MEDS ORDERED: MAGNESIUM CITRATE 300 ML BOTTLE PO PRN (23:45)
[2019-05-22] MEDS ORDERED: BISMUTH SUBSALICYLATE 524 MG/30 ML UD PO PRN (23:45)
[2019-05-22] MEDS ORDERED: IBUPROFEN 400 MG TABLET (FP) PO PRN (23:45)
[2019-05-22] MEDS ORDERED: MAGNESIUM HYDROX 2400MG/30ML ORAL SUSPENSION 30 ML CUP PO PRN (23:45)
[2019-05-22] MEDS ORDERED: MENTHOL/PHENOL 1 EACH UD MM PRN (23:45)
[2019-05-23] MEDS ORDERED: LORazepam 1 MG TABLET PO ONE (00:45)
[2019-05-23] MEDS ORDERED: LORazepam 1 MG TABLET PO PRN (00:45)
[2019-05-23] MEDS: LORazepam 1 MG TABLET PO SCH ×4 (05:57→22:13)
[2019-05-23] MEDS ORDERED: cloNIDine HCL 0.1 MG TABLET PO ONE (07:29)
--- NOTE | 2019-05-23 07:31 | PN ---
[facility] Progress Note Note: Patient's blood pressure this visit is B/P . Patient is asymptomatic Vital Signs Temperature 96.8 F L 05/23/19 07:15 Pulse Rate 65 05/23/19 07:24 Respiratory Rate 20 05/23/19 07:24 Blood Pressure 208/113 H 05/23/19 07:24 O2 Sat by Pulse Oximetry (%) Action: Clonidine 0.1mg tablet 1 tablet oral ordered
[2019-05-23] MEDS: METHADONE HCL 10 MG TABLET PO SCH (08:45)
[2019-05-23] MEDS: TAMSULOSIN HCL 0.4 MG CAP PO SCH (08:58)
[2019-05-23] MEDS: ALBUTEROL SO4 0.083% IH SOL 2.5 MG/3 ML VIAL.NEB. NEB SCH ×2 (09:00→19:48)
[2019-05-23] MEDS: NICOTINE 7 MG/24 HOURS TOPICAL PATCH TD SCH (10:46)
[2019-05-23] MEDS: PRENATAL VITAMINS W/ FOLIC ACID TABLET (FP) PO SCH (10:47)
[2019-05-23] MEDS: predniSONE 20 MG TABLET (UD) PO SCH (10:48)
--- NOTE | 2019-05-23 11:06 | CONSULT ---
[facility] Psychiatric Consult - Data Date of interview: 05/23/19 Admission source: [facility] Identifying data: Readmission to [facility] for ths 69 y/o AA male self-referred for detoxification (SEBASTIAN issues : opioid, alcohol, nicotine). Interviewed at [address] [place] [address]. Patient is single, a father of three, domiciled, disabled, a retiree from [employer] and supported on Social Security + Pension benefits. Substance Abuse History: Discussed with the oatient. Details in current [facility] report as follows : Smoking history: Current every day smoker. Have you smoked in the past 12 months: Yes. Aproximately how many cigarettes per day: 20. Cigars Per Day: 0. Hx Chewing Tobacco Use: No. Initiated information on smoking cessation: Yes. 'Breaking Loose' booklet given: 05/22/19. - Substances abused. Alcohol. Substance route: Oral. Frequency: Daily. Amount used: LIQUOR- 1PT. Age of first use: 17. 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 Psychiatric History: Patient denies history of psychiatric hospitalizations. Mr Poole is currently seeingg a psychiatrist for OPD care at one of [facility] clinics ([facility]) in the [place]. Maintained on citalopram 10 mg /day. Patient is also on opioid agonist therapy (methadone 30 mg/day) at the [facility] ([facility] MMTP program in [facility]. Denies history of suicide attempts. Physical/Sexual Abuse/Trauma History: Patient denies. Additional Comment: Urine drug screen results: MTD-Methadone. Noted. Mental Status Exam - Mental Status Exam Alert and Oriented to: Time, Place, Person Cognitive Function: Good Patient Appearance: Well Groomed Mood: Withdrawn Affect: Mood Congruent, Constricted Patient Behavior: Fatigued, Appropriate, Cooperative Speech Pattern: Clear Voice Loudness: Normal Thought Process: Intact, Goal Oriented Thought Disorder: Not Present Hallucinations: Denies Suicidal Ideation: Denies Homicidal Ideation: Denies Insight/Judgement: Poor Sleep: Poorly, Difficulty falling asleep Appetite: Fair Gait/Station: Other (ambulates with a walker) Psychiatric Findings - Problem List ([place] 1, 2,3) (1) Alcohol dependence with uncomplicated withdrawal Current Visit: Yes Status: Acute (2) Opioid dependence on agonist therapy Current Visit: Yes Status: Chronic (3) Nicotine dependence Current Visit: Yes Status: Chronic Qualifiers: Nicotine product type: cigarettes (4) Substance induced mood disorder Current Visit: Yes Status: Chronic (5) History of depression Current Visit: Yes Status: Chronic (6) Insomnia Current Visit: Yes Status: Chronic Qualifiers: Insomnia type: unspecified Qualified Code(s): G47.00 - Insomnia, unspecified - Initial Treatment Plan Initial Treatment Plan: Noted recent medical evaluation at [facility] (12/03). Taken from medical report : EKG shows NSR, 75 bpm, no ST elevation/ depression, no axis deviation, QTc 457. Appreciated. External pharmacy activity revisited : noted refill for citalopram 10 mg/day (04/27/19) at [facility]. Psychoeducation. Sleep hygiene. Detoxification. Support. Resumed : citalopram 10 mg po daily. Insomnia is addressed with belsomra 10 mg po hs prn. Side effects/benefits discussed with the patient. Mr Poole is in agreement with this plan of care. Gave verbal consent to MD. Cedillo.
[2019-05-23] MEDS ORDERED: FLU VACCINE QUAD 60 MCG/0.5 ML (MDV 19-20) IM ONE (12:00)
[2019-05-23] MEDS ORDERED: PNEUMOC 13-VAL CONJ-DIP CRM/PF 0.5 ML DISP.SYRIN IM ONE (12:00)
--- NOTE | 2019-05-23 12:28 | PN ---
S CIWA - CIWA Score Nausea/Vomitin-No Nausea/No Vomiting Muscle Tremors: None Anxiety: 3 Agitation: 0-Normal Activity Paroxysmal Sweats: 3 Orientation: 0-Oriented Tacttile Disturbances: 1-Very Mild Itch/Numbness Auditory Disturbances: 0-None Visual Disturbances: 0-None Headache: 1-Very Mild CIWA-Ar Total Score: 8 [facility] Progress Note (SOAP) Subjective: c/o sweats, nausea, anxiety, and headache. Objective: 05/23/19 12:26 Vital Signs 05/23/19 05/23/19 05/23/19 07:15 07:24 09:19 Temperature 96.8 F L 97.5 F L Pulse Rate 96 H 65 84 Respiratory 20 20 18 Rate Blood Pressure 197/100 H 208/113 H 156/93 Laboratory Last Values RPR Titer Nonreactive (NONREACTIVE) 05/23/19 05:50 Assessment: 05/23/19 12:27 AOX3, in no acute respiratory distress. Full ROM, ambulating in the unit with a walker. Withdrawal symptoms. Plan: continue detox.
[2019-05-23] MEDS: CELECOXIB 200 MG CAPSULE PO SCH ×2 (16:29→22:13)
[2019-05-23] MEDS ORDERED: ALBUTEROL SO4 HFA INHALER IH ONE (18:05)
[2019-05-23] MEDS: ALBUTEROL SO4 HFA INHALER IH PRN (18:15)
[2019-05-23] MEDS: MELATONIN 5 MG TABLETS PO PRN (22:13)
[2019-05-23] MEDS: THIAMINE HCL 100 MG TABLET (FP) PO SCH (22:13)
[2019-05-24] MEDS: LORazepam 1 MG TABLET PO SCH ×4 (05:49→22:21)
[2019-05-24] MEDS: METHADONE HCL 10 MG TABLET PO SCH (05:49)
[2019-05-24] MEDS: ALBUTEROL SO4 HFA INHALER IH PRN (05:49)
[2019-05-24] MEDS: ALBUTEROL SO4 0.083% IH SOL 2.5 MG/3 ML VIAL.NEB. NEB SCH ×2 (06:04→22:22)
[2019-05-24] MEDS ORDERED: ALBUTEROL SO4 0.083% IH SOL 2.5 MG/3 ML VIAL.NEB. NEB PRN (09:57)
--- NOTE | 2019-05-24 10:01 | PN ---
S CIWA - CIWA Score Nausea/Vomitin-No Nausea/No Vomiting Muscle Tremors: 2 Anxiety: 2 Agitation: 2 Paroxysmal Sweats: No Perspiration Orientation: 0-Oriented Tacttile Disturbances: 0-None Auditory Disturbances: 0-None Visual Disturbances: 0-None Headache: 1-Very Mild CIWA-Ar Total Score: 7 BHS Progress Note (SOAP) Subjective: 69 years old male admitted on 05/22/19 for alcohol withdrawal sx management treated with ativan detox regimen long history of asthma treated with ventolin and nebulizer and prednison patient tolerated well be elevation begin amlodipin 10 mg po daily Objective: 05/24/19 10:01 Vital Signs Temperature 96.1 F L 05/24/19 09:09 Pulse Rate 47 L 05/24/19 09:09 Respiratory Rate 20 05/24/19 09:09 Blood Pressure 156/91 05/24/19 09:09 O2 Sat by Pulse Oximetry (%) Laboratory Last Values RPR Titer Nonreactive (NONREACTIVE) 05/23/19 05:50 05/24/19 10:03 lab see 05/22/19 report ast elevation repeat 05/25/19 Assessment: 05/24/19 10:05 alcohol withdrawal sx discuss alcohol related ast elevation and liver insult Plan: continue ativan detox regimen
[2019-05-24] MEDS: CELECOXIB 200 MG CAPSULE PO SCH ×2 (10:41→22:21)
[2019-05-24] MEDS: PRENATAL VITAMINS W/ FOLIC ACID TABLET (FP) PO SCH (10:41)
[2019-05-24] MEDS: TAMSULOSIN HCL 0.4 MG CAP PO SCH (10:43)
[2019-05-24] MEDS: CITALOPRAM HYDROBROMIDE 10 MG TABLET PO SCH (10:43)
[2019-05-24] MEDS: NICOTINE 7 MG/24 HOURS TOPICAL PATCH TD SCH (10:46)
[2019-05-24] MEDS: amLODIPine BESYLATE 10 MG TABLET (FP) PO SCH (10:48)
[2019-05-24] MEDS: predniSONE 20 MG TABLET (UD) PO SCH (10:48)
[2019-05-24] MEDS: THIAMINE HCL 100 MG TABLET (FP) PO SCH (22:20)
[2019-05-24] MEDS: MELATONIN 5 MG TABLETS PO PRN (22:21)
[2019-05-25] MEDS ORDERED: LORazepam 0.5 MG TABLET PO PRN
[2019-05-25] MEDS: METHADONE HCL 10 MG TABLET PO SCH (05:21)
[2019-05-25] MEDS: LORazepam 0.5 MG TABLET PO SCH ×4 (05:21→22:04)
[2019-05-25] MEDS: ALBUTEROL SO4 0.083% IH SOL 2.5 MG/3 ML VIAL.NEB. NEB SCH (07:03)
[2019-05-25] MEDS: TAMSULOSIN HCL 0.4 MG CAP PO SCH (09:15)
--- NOTE | 2019-05-25 09:39 | PN ---
S CIWA - CIWA Score Nausea/Vomitin-No Nausea/No Vomiting Muscle Tremors: 2 Anxiety: 1-Mildly Anxious Agitation: 1-Slight > Activity Paroxysmal Sweats: No Perspiration Orientation: 0-Oriented Tacttile Disturbances: 0-None Auditory Disturbances: 0-None Visual Disturbances: 0-None Headache: 0-None Present CIWA-Ar Total Score: 4 BHS Progress Note (SOAP) Subjective: 69 years old male admitted on 05/22/19 for alcohol withdrawal sx mangement treated with ativan detox regimen feeling better today ambulating on hallway with walker steady gait ast elevation repeat pending Objective: 05/25/19 09:37 Vital Signs Temperature 96.1 F L 05/25/19 09:08 Pulse Rate 56 L 05/25/19 09:08 Respiratory Rate 18 05/25/19 09:08 Blood Pressure 115/73 05/25/19 09:08 O2 Sat by Pulse Oximetry (%) Laboratory Last Values RPR Titer Nonreactive (NONREACTIVE) 05/23/19 05:50 Laboratory Last Values lab see 05/22/19 report Assessment: 05/25/19 09:38 alcohol withdrawal sx Plan: ativan detox regimen
[2019-05-25] MEDS: PRENATAL VITAMINS W/ FOLIC ACID TABLET (FP) PO SCH (10:14)
[2019-05-25] MEDS: predniSONE 40 MG, predniSONE 10 MG PO SCH (10:14)
[2019-05-25] MEDS: CELECOXIB 200 MG CAPSULE PO SCH ×2 (10:14→22:04)
[2019-05-25] MEDS: amLODIPine BESYLATE 10 MG TABLET (FP) PO SCH (10:14)
[2019-05-25] MEDS: CITALOPRAM HYDROBROMIDE 10 MG TABLET PO SCH (10:15)
[2019-05-25] MEDS: NICOTINE 7 MG/24 HOURS TOPICAL PATCH TD SCH (10:17)
[2019-05-25] MEDS: THIAMINE HCL 100 MG TABLET (FP) PO SCH (22:04)
[2019-05-25] MEDS: MELATONIN 5 MG TABLETS PO PRN (22:05)
[2019-05-26] MEDS ORDERED: LORazepam 0.5 MG TABLET PO ONE (05:00)
[2019-05-26] MEDS: METHADONE HCL 10 MG TABLET PO SCH (05:18)
[2019-05-26] MEDS: CELECOXIB 200 MG CAPSULE PO SCH (09:11)
[2019-05-26] MEDS: TAMSULOSIN HCL 0.4 MG CAP PO SCH (09:11)
[2019-05-26 09:32] VITALS: BP 138/67; PULSE 72; TEMP 97
--- NOTE | 2019-05-26 09:43 | DS ---
[facility] Detox Discharge Summary Admission Date: 05/22/19 Discharge Date: 05/26/19 - History Present History: Alcohol Dependence Additional Comments: 69 years old male admitted on 05/22/19 for alcohol withdrawal sx management treated with ativan detox regimen patient tolerated well alert oriented x 3 cardiac s1s2 regular rate rhythm respiratory completed prednison 50 mg po today lung clear bilaterally on auscultation ambulating with walker steady gait patient has primary care provider Dr Posada at [facility] visiting monthly x 19 years - Physical Exam Results Vital Signs: Vital Signs Temperature 97.0 F L 05/26/19 09:30 Pulse Rate 72 05/26/19 09:30 Respiratory Rate 18 05/26/19 09:30 Blood Pressure 138/67 05/26/19 09:30 O2 Sat by Pulse Oximetry (%) Pertinent Admission Physical Exam Findings: alcohol withdrawal sx Vital Signs Temperature 97.0 F L 05/26/19 09:30 Pulse Rate 72 05/26/19 09:30 Respiratory Rate 18 05/26/19 09:30 Blood Pressure 138/67 05/26/19 09:30 O2 Sat by Pulse Oximetry (%) Laboratory Last Values AST 55 U/L (15-37) H 05/25/19 08:20 RPR Titer Nonreactive (NONREACTIVE) 05/23/19 05:50 lab 05/22/19 ER report - Treatment Hospital Course: Detox Protocol Followed, Detoxed Safely, Responded well, Discharged Condition Good, Rehab Referral Accepted Patient has Accepted a Rehab Referral to: community support approach - Medication Discharge Medications: Ambulatory Orders Albuterol Sulfate Inhaler - [Ventolin HFA Inhaler -] 2 puff IH Q4H PRN #1 inhaler 04/10/17 Tamsulosin HCl [Flomax] 0.4 mg PO HS #30 cap.sr 04/10/17 Celecoxib [CeleBREX -] 200 mg PO BID 05/22/19 Citalopram Hydrobromide [Celexa -] 10 mg PO DAILY 05/22/19 Darunavir/Cobicistat [Prezcobix 800 mg-150 mg Tablet] 1 each PO DAILY 05/22/19 Diphenhydramine HCl 25 mg PO HS 05/22/19 Emtricitabine/Tenofov Alafenam [Descovy 200-25 mg Tablet (Nf)] 1 each PO DAILY 05/22/19 Prednisone [Prednisone 50 MG TABLETS] 50 mg PO DAILY 4 Days #4 tablet 05/22/19 Zolpidem Tartrate [Ambien] 10 mg PO HS 05/22/19 - Diagnosis (1) Asthma Current Visit: Yes Status: Chronic Qualifiers: Asthma severity: mild Asthma persistence: intermittent Asthma complication type: with status asthmaticus Qualified Code(s): J45.22 - Mild intermittent asthma with status asthmaticus (2) Alcohol dependence with uncomplicated withdrawal Current Visit: Yes Status: Acute (3) Nicotine dependence Current Visit: Yes Status: Acute Qualifiers: Nicotine product type: cigarettes Substance use status: in withdrawal Qualified Code(s): F17.213 - Nicotine dependence, cigarettes, with withdrawal (4) Substance induced mood disorder Current Visit: Yes Status: Suspected (5) BPH (benign prostatic hyperplasia) Current Visit: Yes Status: Chronic Qualifiers: Lower urinary tract symptom presence: symptoms present Lower urinary tract symptom detail: post-void dribbling Qualified Code(s): N40.1 - Benign prostatic hyperplasia with lower urinary tract symptoms; N39.43 - Post-void dribbling (6) HIV (human immunodeficiency virus infection) Current Visit: Yes Status: Chronic Qualifiers: HIV symptom status: asymptomatic Qualified Code(s): Z21 - Asymptomatic human immunodeficiency virus [HIV] infection status (7) Methadone maintenance therapy patient Current Visit: Yes Status: Chronic - AMA Did Patient Leave Against Medical Advice: No CIWA Score - CIWA Score Nausea/Vomitin-No Nausea/No Vomiting Muscle Tremors: 1-None Visible, but [place] Anxiety: 0-No Anxiety, at Ease Agitation: 0-Normal Activity Paroxysmal Sweats: No Perspiration Orientation: 0-Oriented Tacttile Disturbances: 0-None Auditory Disturbances: 0-None Visual Disturbances: 0-None Headache: 0-None Present CIWA-Ar Total Score: 1
[2019-05-26] MEDS: CITALOPRAM HYDROBROMIDE 10 MG TABLET PO SCH (10:11)
[2019-05-26] MEDS: PRENATAL VITAMINS W/ FOLIC ACID TABLET (FP) PO SCH (10:12)
[2019-05-26] MEDS: amLODIPine BESYLATE 10 MG TABLET (FP) PO SCH (10:13)
[2019-05-26] MEDS: NICOTINE 7 MG/24 HOURS TOPICAL PATCH TD SCH (10:13)
[2019-05-26] MEDS: predniSONE 40 MG, predniSONE 10 MG PO SCH (10:59)
== END 2019-05-26 11:33 | disposition home or self-care (01) | DRG 897 ==
LOC: YASAS 22:18 → Y3N 23:10
PROVIDERS: ADMIT Allergy & Immunology; ATTEND Allergy & Immunology
PROC: HZ2ZZZZ Detoxification Services for Substance Abuse Treatment (ICD-10-PCS; principal; 2019-05-22)
DX: F10.230 Alcohol dependence with withdrawal, uncomplicated (principal); F11.20 Opioid dependence, uncomplicated; J45.22 Mild intermittent asthma with status asthmaticus; F17.210 Nicotine dependence, cigarettes, uncomplicated; F19.24 Other psychoactive substance dependence with psychoactive substance-induced mood disorder; F32.9 Major depressive disorder, single episode, unspecified; Z21 Asymptomatic human immunodeficiency virus [HIV] infection status; N40.1 Benign prostatic hyperplasia with lower urinary tract symptoms; N39.43 Post-void dribbling; G47.00 Insomnia, unspecified; Z99.89 Dependence on other enabling machines and devices; Z86.19 Personal history of other infectious and parasitic diseases
CPT/HCPCS: 36415; 84450; 86593; 94640; G0008; J0735; Q2036

== ENCOUNTER 2021-02-17 10:14 | Inpatient (IN) | payer OTHER ==
[2021-02-17 10:58] VITALS: BMI 27.6
[2021-02-17] MEDS ORDERED: MENTHOL/PHENOL 1 EACH UD MM PRN (12:05)
[2021-02-17] MEDS ORDERED: MAGNESIUM HYDROX 2400MG/30ML ORAL SUSPENSION 30 ML CUP PO PRN (12:05)
[2021-02-17] MEDS ORDERED: ONDANSETRON *ODT* 4 MG TABLET SL PRN (12:05)
[2021-02-17] MEDS ORDERED: IBUPROFEN 400 MG TABLET (FP) PO PRN (12:05)
[2021-02-17] MEDS ORDERED: MAGNESIUM CITRATE 300 ML BOTTLE PO PRN (12:05)
[2021-02-17] MEDS ORDERED: MAG HYDROX/AL HYDROX/SIMETH 30 ML UNIT-DOSE CUP PO PRN (12:05)
[2021-02-17] MEDS ORDERED: BISMUTH SUBSALICYLATE 524 MG/30 ML PO PRN (12:05)
[2021-02-17] MEDS ORDERED: ALBUTEROL SO4 HFA INHALER IH PRN (12:09)
[2021-02-17] MEDS: ASPIRIN COATED 81 MG TABLET.EC PO SCH (14:03)
[2021-02-17] MEDS: KETOCONAZOLE 2% CREAM - 60GM TUBE TP SCH (14:03)
[2021-02-17] MEDS: EMTRICITABINE/TENOFOV ALAFENAM (DESCOVY) TABLET PO SCH (14:03)
[2021-02-17] MEDS: DARUNAVIR 800 MG/COBICISTAT 150MG TABLET PO SCH (14:04)
[2021-02-17] MEDS ORDERED: NICOTINE POLACRILEX 2 MG GUM BUC PRN (14:10)
[2021-02-17] MEDS: NICOTINE 21 MG/24 HOURS TOPICAL PATCH TD SCH (14:22)
[2021-02-17] MEDS: diazePAM 5 MG TABLET PO PRN (20:10)
[2021-02-17] MEDS: THIAMINE HCL 100 MG TABLET (FP) PO SCH (22:35)
[2021-02-17] MEDS: MELATONIN 5 MG TABLETS PO SCH (22:35)
[2021-02-17] MEDS: TAMSULOSIN HCL 0.4 MG CAP PO SCH (22:35)
[2021-02-18] MEDS: PRENATAL VITAMINS W/ FOLIC ACID TABLET (FP) PO SCH (10:14)
[2021-02-18] MEDS: NICOTINE 21 MG/24 HOURS TOPICAL PATCH TD SCH (10:14)
[2021-02-18] MEDS: ASPIRIN COATED 81 MG TABLET.EC PO SCH (10:15)
[2021-02-18] MEDS: KETOCONAZOLE 2% CREAM - 60GM TUBE TP SCH (10:16)
[2021-02-18] MEDS: EMTRICITABINE/TENOFOV ALAFENAM (DESCOVY) TABLET PO SCH (10:16)
[2021-02-18] MEDS: DARUNAVIR 800 MG/COBICISTAT 150MG TABLET PO SCH (10:16)
[2021-02-18] MEDS ORDERED: methaDONE HCL 10 MG TABLET PO SCH (10:45)
[2021-02-18] MEDS ORDERED: methaDONE HCL 10 MG TABLET ONE (10:59)
[2021-02-18] MEDS ORDERED: methaDONE HCL 40 MG DISPERSABLE TABLET ONE (10:59)
[2021-02-18] MEDS: methaDONE 40 MG, methaDONE 10 MG PO SCH (11:04)
[2021-02-18] MEDS: diazePAM 5 MG TABLET PO PRN ×2 (11:05→21:55)
[2021-02-18] MEDS: FINASTERIDE 5 MG TABLET (FP) PO SCH (11:22)
[2021-02-18 15:21] LABS: ALBUMIN 3.2 g/dl (3.4-5.0)
[2021-02-18 15:22] LABS: BLOOD UREA NITROGEN 15.7 mg/dL (7-18); CALCIUM 8.3 mg/dL (8.5-10.1)
[2021-02-18 15:23] LABS: HEMATOCRIT 43.1 % (35.4-49); HEMOGLOBIN 14.7 GM/dL (11.7-16.9); MCH 35.1 pg (25.7-33.7); MEAN CELL VOLUME 103.2 fl (80-96); MEAN PLT VOLUME 10.2 fl (7.5-11.1); PLATELET COUNT 108 10^3/uL (134-434); RBC 4.17 M/mm3 (4.00-5.60); RDW 14.7 % (11.9-15.9); WHITE BLOOD COUNT 3.6 K/mm3 (4.0-10.0)
[2021-02-18 15:25] LABS: CREATININE 1.1 mg/dL (0.55-1.3)
[2021-02-18 15:26] LABS: BILIRUBIN,TOTAL 1.2 mg/dL (0.2-1); TOT PROT 6.7 g/dl (6.4-8.2)
[2021-02-18] MEDS: THIAMINE HCL 100 MG TABLET (FP) PO SCH (21:55)
[2021-02-18] MEDS: TAMSULOSIN HCL 0.4 MG CAP PO SCH (21:55)
[2021-02-19] MEDS: MELATONIN 5 MG TABLETS PO SCH (00:15)
[2021-02-19] MEDS ORDERED: methaDONE HCL 40 MG DISPERSABLE TABLET ONE (04:25)
[2021-02-19] MEDS ORDERED: methaDONE HCL 10 MG TABLET ONE (04:25)
[2021-02-19] MEDS: methaDONE 40 MG, methaDONE 10 MG PO SCH (05:34)
[2021-02-19] MEDS: diazePAM 5 MG TABLET PO PRN (05:36)
[2021-02-19 09:51] VITALS: TEMP 97.1
[2021-02-19] MEDS: PRENATAL VITAMINS W/ FOLIC ACID TABLET (FP) PO SCH (10:44)
[2021-02-19] MEDS: ASPIRIN COATED 81 MG TABLET.EC PO SCH (10:44)
[2021-02-19] MEDS: EMTRICITABINE/TENOFOV ALAFENAM (DESCOVY) TABLET PO SCH (10:44)
[2021-02-19] MEDS: FINASTERIDE 5 MG TABLET (FP) PO SCH (10:44)
[2021-02-19] MEDS: DARUNAVIR 800 MG/COBICISTAT 150MG TABLET PO SCH (10:44)
[2021-02-19] MEDS: KETOCONAZOLE 2% CREAM - 60GM TUBE TP SCH (10:45)
[2021-02-19] MEDS: NICOTINE 21 MG/24 HOURS TOPICAL PATCH TD SCH (10:45)
[2021-02-19 13:46] VITALS: BP 175/77; PULSE 73
== END 2021-02-19 13:54 | disposition home or self-care (01) | DRG 897 ==
LOC: YASAS 10:14 → Y6N 12:30 → Y3N 20:35
PROVIDERS: ADMIT Allergy & Immunology; ATTEND Allergy & Immunology
PROC: HZ2ZZZZ Detoxification Services for Substance Abuse Treatment (ICD-10-PCS; principal; 2021-02-17)
DX: F10.230 Alcohol dependence with withdrawal, uncomplicated (principal); F11.20 Opioid dependence, uncomplicated; F17.210 Nicotine dependence, cigarettes, uncomplicated; Z21 Asymptomatic human immunodeficiency virus [HIV] infection status; J45.909 Unspecified asthma, uncomplicated; K74.60 Unspecified cirrhosis of liver; N40.1 Benign prostatic hyperplasia with lower urinary tract symptoms; N39.43 Post-void dribbling; R26.89 Other abnormalities of gait and mobility; Z96.653 Presence of artificial knee joint, bilateral; Z99.89 Dependence on other enabling machines and devices
CPT/HCPCS: 36415; 80053; 85027; 86780; 93005; 93010; C9803; U0003; U0005

== ENCOUNTER 2022-02-23 12:19 | Inpatient (IN) | payer OTHER ==
[2022-02-23 12:47] VITALS: BMI 26.4
[2022-02-23] MEDS ORDERED: BISMUTH SUBSALICYLATE 524 MG/30 ML PO PRN (18:15)
[2022-02-23] MEDS ORDERED: NICOTINE 10 MG CARTRIDGE (INHALER) IH PRN (18:15)
[2022-02-23] MEDS ORDERED: MAG HYDROX/AL HYDROX/SIMETH 30 ML UNIT-DOSE CUP PO PRN (18:15)
[2022-02-23] MEDS ORDERED: NALOXONE HCL (KLOXXADO) 8 MG SPRAY NS PRN (18:15)
[2022-02-23] MEDS ORDERED: METHOCARBAMOL 500 MG TABLET PO PRN (18:15)
[2022-02-23] MEDS ORDERED: MAGNESIUM CITRATE 300 ML BOTTLE PO PRN (18:15)
[2022-02-23] MEDS ORDERED: LOPERAMIDE HCL 2 MG CAPSULE PO PRN (18:15)
[2022-02-23] MEDS ORDERED: IBUPROFEN 400 MG TABLET (FP) PO PRN (18:15)
[2022-02-23] MEDS ORDERED: ACETAMINOPHEN 325 MG TABLET (FP) PO PRN ×2 (18:15)
[2022-02-23] MEDS ORDERED: BENZOCAINE/MENTHOL (CHLORASEPTIC ) LOZENGE MM PRN (18:15)
[2022-02-23] MEDS ORDERED: ONDANSETRON *ODT* 4 MG TABLET SL PRN (18:15)
[2022-02-23] MEDS ORDERED: NICOTINE POLACRILEX 4 MG GUM BUC PRN (18:15)
[2022-02-23] MEDS ORDERED: MAGNESIUM HYDROX 2400MG/30ML ORAL SUSPENSION 30 ML CUP PO PRN (18:15)
[2022-02-23] MEDS ORDERED: DICYCLOMINE HCL 10 MG CAPSULE PO PRN (18:15)
[2022-02-23] MEDS ORDERED: IBUPROFEN 600 MG TABLET (FP) PO PRN (18:15)
[2022-02-23] MEDS ORDERED: ALBUTEROL SO4 HFA INHALER IH PRN (18:26)
[2022-02-23] MEDS ORDERED: hydrOXYzine PAMOATE 25 MG CAPSULE (FP) PO SCH (22:00)
[2022-02-23] MEDS ORDERED: NICOTINE 14 MG/24 HOURS TOPICAL PATCH TD ONE (22:55)
[2022-02-23] MEDS: traZODone HCL 150 MG TABLET PO SCH (23:14)
[2022-02-23] MEDS: TAMSULOSIN HCL 0.4 MG CAP PO SCH (23:14)
[2022-02-23] MEDS: THIAMINE HCL 100 MG TABLET (FP) PO SCH (23:15)
[2022-02-23] MEDS: MELATONIN 5 MG TABLETS PO SCH (23:15)
[2022-02-23] MEDS: NICOTINE 14 MG/24 HOURS TOPICAL PATCH TD SCH (23:18)
[2022-02-24] MEDS: LORazepam 2 MG TABLET PO SCH ×5 (01:13→22:46)
[2022-02-24] MEDS: LORazepam 1 MG TABLET PO PRN (01:17)
[2022-02-24] MEDS ORDERED: cloNIDine HCL 0.1 MG TABLET PO ONE ×2 (01:22→14:09)
[2022-02-24] MEDS: PRENATAL VITAMINS W/ FOLIC ACID TABLET (FP) PO SCH (10:38)
[2022-02-24] MEDS: GABAPENTIN 300 MG CAPSULE PO SCH (10:38)
[2022-02-24] MEDS: NICOTINE 14 MG/24 HOURS TOPICAL PATCH TD SCH (10:42)
[2022-02-24 11:31] LABS: HEMATOCRIT 41.2 % (35.4-49); HEMOGLOBIN 13.5 GM/dL (11.7-16.9); MCH 33.5 pg (25.7-33.7); MCHC 32.7 g/dl (32.0-35.9); MEAN CELL VOLUME 102.4 fl (80-96); MEAN PLT VOLUME 9.4 fl (7.5-11.1); PLATELET COUNT 123 10^3/uL (134-434); RBC 4.03 M/mm3 (4.00-5.60); RDW 15.4 % (11.9-15.9); WHITE BLOOD COUNT 3.2 K/mm3 (4.0-10.0)
[2022-02-24] MEDS: FINASTERIDE 5 MG TABLET (FP) PO SCH (11:31)
[2022-02-24] MEDS: DARUNAVIR 800 MG/COBICISTAT 150MG TABLET PO SCH (11:31)
[2022-02-24] MEDS: EMTRICITABINE/TENOFOV ALAFENAM (DESCOVY) TABLET PO SCH (11:31)
[2022-02-24 11:42] LABS: CALCIUM 8.6 mg/dL (8.5-10.1)
[2022-02-24 11:43] LABS: ALBUMIN 3.1 g/dl (3.4-5.0); BLOOD UREA NITROGEN 14.2 mg/dL (7-18)
[2022-02-24 11:46] LABS: CREATININE 1.1 mg/dL (0.55-1.3)
[2022-02-24 11:47] LABS: TOT PROT 6.2 g/dl (6.4-8.2)
[2022-02-24 11:50] LABS: BILIRUBIN,TOTAL 0.7 mg/dL (0.2-1)
[2022-02-24] MEDS ORDERED: methaDONE HCL 10 MG TABLET PO SCH (12:15)
[2022-02-24] MEDS: TAMSULOSIN HCL 0.4 MG CAP PO SCH (22:45)
[2022-02-24] MEDS: MELATONIN 5 MG TABLETS PO SCH (22:45)
[2022-02-24] MEDS: traZODone HCL 150 MG TABLET PO SCH (22:45)
[2022-02-24] MEDS: THIAMINE HCL 100 MG TABLET (FP) PO SCH (22:45)
[2022-02-25] MEDS: LORazepam 1 MG TABLET PO SCH ×4 (05:28→23:00)
[2022-02-25] MEDS: NICOTINE 14 MG/24 HOURS TOPICAL PATCH TD SCH (10:27)
[2022-02-25] MEDS: PRENATAL VITAMINS W/ FOLIC ACID TABLET (FP) PO SCH (10:27)
[2022-02-25] MEDS: GABAPENTIN 300 MG CAPSULE PO SCH (10:27)
[2022-02-25] MEDS: EMTRICITABINE/TENOFOV ALAFENAM (DESCOVY) TABLET PO SCH (10:28)
[2022-02-25] MEDS: FINASTERIDE 5 MG TABLET (FP) PO SCH (10:28)
[2022-02-25] MEDS: DARUNAVIR 800 MG/COBICISTAT 150MG TABLET PO SCH (10:28)
[2022-02-25] MEDS: ENALAPRIL MALEATE 5 MG TABLET PO SCH (18:06)
[2022-02-25] MEDS: cloNIDine HCL 0.1 MG TABLET PO PRN (20:36)
[2022-02-25] MEDS: LORazepam 1 MG TABLET PO PRN (20:37)
[2022-02-25] MEDS: THIAMINE HCL 100 MG TABLET (FP) PO SCH (22:59)
[2022-02-25] MEDS: traZODone HCL 150 MG TABLET PO SCH (22:59)
[2022-02-25] MEDS: TAMSULOSIN HCL 0.4 MG CAP PO SCH (23:00)
[2022-02-25] MEDS: MELATONIN 5 MG TABLETS PO SCH (23:00)
[2022-02-26] MEDS ORDERED: LORazepam 0.5 MG TABLET PO PRN
[2022-02-26] MEDS: LORazepam 0.5 MG TABLET PO SCH ×4 (05:30→22:18)
[2022-02-26] MEDS: GABAPENTIN 300 MG CAPSULE PO SCH (12:08)
[2022-02-26] MEDS: ENALAPRIL MALEATE 5 MG TABLET PO SCH (12:09)
[2022-02-26] MEDS: NICOTINE 14 MG/24 HOURS TOPICAL PATCH TD SCH (12:09)
[2022-02-26] MEDS: FINASTERIDE 5 MG TABLET (FP) PO SCH (12:09)
[2022-02-26] MEDS: PRENATAL VITAMINS W/ FOLIC ACID TABLET (FP) PO SCH (12:09)
[2022-02-26] MEDS: DARUNAVIR 800 MG/COBICISTAT 150MG TABLET PO SCH (12:09)
[2022-02-26] MEDS: EMTRICITABINE/TENOFOV ALAFENAM (DESCOVY) TABLET PO SCH (12:09)
[2022-02-26] MEDS ORDERED: traZODone HCL 100 MG TABLET (FP) PO SCH (22:00)
[2022-02-26] MEDS: cloNIDine HCL 0.1 MG TABLET PO PRN (22:18)
[2022-02-26] MEDS: MELATONIN 5 MG TABLETS PO SCH (22:18)
[2022-02-26] MEDS: THIAMINE HCL 100 MG TABLET (FP) PO SCH (22:18)
[2022-02-26] MEDS: TAMSULOSIN HCL 0.4 MG CAP PO SCH (23:00)
[2022-02-27] MEDS ORDERED: LORazepam 0.5 MG TABLET PO ONE (05:00)
[2022-02-27] MEDS: cloNIDine HCL 0.1 MG TABLET PO PRN (05:58)
[2022-02-27 07:08] VITALS: RESP 18
[2022-02-27] MEDS: ENALAPRIL MALEATE 5 MG TABLET PO SCH (10:23)
[2022-02-27] MEDS: GABAPENTIN 300 MG CAPSULE PO SCH (10:23)
[2022-02-27] MEDS: DARUNAVIR 800 MG/COBICISTAT 150MG TABLET PO SCH (10:24)
[2022-02-27] MEDS: PRENATAL VITAMINS W/ FOLIC ACID TABLET (FP) PO SCH (10:24)
[2022-02-27] MEDS: EMTRICITABINE/TENOFOV ALAFENAM (DESCOVY) TABLET PO SCH (10:24)
[2022-02-27] MEDS: FINASTERIDE 5 MG TABLET (FP) PO SCH (10:24)
[2022-02-27] MEDS: NICOTINE 14 MG/24 HOURS TOPICAL PATCH TD SCH (10:25)
[2022-02-27 12:29] VITALS: BP 152/82; PULSE 70; TEMP 97.1
== END 2022-02-27 14:06 | disposition other institution (70) | DRG 897 ==
LOC: YASAS 12:19 → Y3N 23:18
PROVIDERS: ADMIT Allergy & Immunology; ATTEND Family Medicine Addiction Medicine
PROC: HZ2ZZZZ Detoxification Services for Substance Abuse Treatment (ICD-10-PCS; principal; 2022-02-23)
DX: F10.230 Alcohol dependence with withdrawal, uncomplicated (principal); F17.210 Nicotine dependence, cigarettes, uncomplicated; Z21 Asymptomatic human immunodeficiency virus [HIV] infection status; I10 Essential (primary) hypertension; J45.20 Mild intermittent asthma, uncomplicated; G47.00 Insomnia, unspecified; N40.1 Benign prostatic hyperplasia with lower urinary tract symptoms; N39.43 Post-void dribbling; Z88.2 Allergy status to sulfonamides
CPT/HCPCS: 36415; 80053; 85027; 86780; 87811; C9803-CS; U0003; U0005

== ENCOUNTER 2022-02-27 14:18 | Inpatient (IN) | payer OTHER ==
[2022-02-27] MEDS ORDERED: MAGNESIUM HYDROX 2400MG/30ML ORAL SUSPENSION 30 ML CUP PO PRN (15:23)
[2022-02-27] MEDS ORDERED: BENZOCAINE/MENTHOL (CHLORASEPTIC ) LOZENGE MM PRN (15:23)
[2022-02-27] MEDS ORDERED: LOPERAMIDE HCL 2 MG CAPSULE PO PRN (15:23)
[2022-02-27] MEDS ORDERED: P-EPHED 60MG/TRIPROLIDI 2.5MG TABLET PO PRN (15:23)
[2022-02-27] MEDS ORDERED: MAGNESIUM CITRATE 300 ML BOTTLE PO PRN (15:23)
[2022-02-27] MEDS ORDERED: ACETAMINOPHEN 325 MG TABLET (FP) PO PRN ×2 (15:23→19:18)
[2022-02-27] MEDS ORDERED: guaiFENesin 200 MG/10 ML 10 ML UNIT-DOSE CUPS PO PRN (15:23)
[2022-02-27] MEDS ORDERED: MAG HYDROX/AL HYDROX/SIMETH 30 ML UNIT-DOSE CUP PO PRN (15:23)
[2022-02-27] MEDS ORDERED: ALBUTEROL SO4 HFA INHALER IH PRN (15:57)
[2022-02-27] MEDS: EMTRICITABINE/TENOFOV ALAFENAM (DESCOVY) TABLET PO SCH (16:50)
[2022-02-27] MEDS: DARUNAVIR 800 MG/COBICISTAT 150MG TABLET PO SCH (16:50)
[2022-02-27] MEDS: IBUPROFEN 400 MG TABLET (FP) PO PRN (21:22)
[2022-02-27] MEDS: TAMSULOSIN HCL 0.4 MG CAP PO SCH (21:22)
[2022-02-27] MEDS: THIAMINE HCL 100 MG TABLET (FP) PO SCH (21:22)
[2022-02-28] MEDS ORDERED: methaDONE HCL 10 MG TABLET PO SCH (06:00)
[2022-02-28] MEDS: NICOTINE 10 MG CARTRIDGE (INHALER) IH SCH (10:16)
[2022-02-28] MEDS: ENALAPRIL MALEATE 5 MG TABLET PO SCH (10:17)
[2022-02-28] MEDS: PRENATAL VITAMINS W/ FOLIC ACID TABLET (FP) PO SCH (10:17)
[2022-02-28] MEDS: FINASTERIDE 5 MG TABLET (FP) PO SCH (10:18)
[2022-02-28] MEDS: DARUNAVIR 800 MG/COBICISTAT 150MG TABLET PO SCH (11:15)
[2022-02-28] MEDS: EMTRICITABINE/TENOFOV ALAFENAM (DESCOVY) TABLET PO SCH (11:16)
[2022-02-28] MEDS: IBUPROFEN 400 MG TABLET (FP) PO PRN (11:31)
[2022-02-28] MEDS ORDERED: PNEUMOC 20-VAL CONJ-DIP CRM/PF 0.5 ML SYRINGE IM ONE (12:00)
[2022-02-28] MEDS: GABAPENTIN 100 MG CAPSULE PO SCH ×2 (15:41→21:31)
[2022-02-28] MEDS: TAMSULOSIN HCL 0.4 MG CAP PO SCH (21:31)
[2022-02-28] MEDS: THIAMINE HCL 100 MG TABLET (FP) PO SCH (21:31)
[2022-02-28] MEDS: MELATONIN 5 MG TABLETS PO PRN (21:31)
[2022-03-01] MEDS: GABAPENTIN 100 MG CAPSULE PO SCH ×3 (06:23→21:24)
[2022-03-01] MEDS: DARUNAVIR 800 MG/COBICISTAT 150MG TABLET PO SCH (09:44)
[2022-03-01] MEDS: EMTRICITABINE/TENOFOV ALAFENAM (DESCOVY) TABLET PO SCH (09:45)
[2022-03-01] MEDS: FINASTERIDE 5 MG TABLET (FP) PO SCH (09:45)
[2022-03-01] MEDS: ENALAPRIL MALEATE 5 MG TABLET PO SCH (09:45)
[2022-03-01] MEDS: PRENATAL VITAMINS W/ FOLIC ACID TABLET (FP) PO SCH (09:46)
[2022-03-01] MEDS: IBUPROFEN 400 MG TABLET (FP) PO PRN ×2 (09:47→21:23)
[2022-03-01] MEDS: NICOTINE 10 MG CARTRIDGE (INHALER) IH SCH (09:49)
[2022-03-01] MEDS: NICOTINE 14 MG/24 HOURS TOPICAL PATCH TD SCH (14:07)
[2022-03-01] MEDS: MICONAZOLE NITRATE 28 GM TUBE TP SCH ×2 (14:07→21:22)
[2022-03-01 16:52] LABS: EPI CELLS 8 /uL (0-25.1); HYALINE CASTS 2 /uL (0-3.1); PH,URINE 5.5 (5.0-8.0); URINE APPEARANCE CLEAR; URINE BACTERIA 2 /uL (0-1359); URINE BILIRUBIN 1+ (NEGATIVE); URINE COLOR DK YELLOW; URINE GLUCOSE (UA) NEGATIVE (NEGATIVE); URINE KETONE TRACE (NEGATIVE); URINE LEUK ESTERASE TRACE (NEGATIVE); URINE NITRITE NEGATIVE (NEGATIVE); URINE PROTEIN TRACE (NEGATIVE); URINE RBC 7 /uL (0-23.9); URINE WBC 6 /uL (0-25.8)
[2022-03-01] MEDS: THIAMINE HCL 100 MG TABLET (FP) PO SCH (21:21)
[2022-03-01] MEDS: MELATONIN 5 MG TABLETS PO PRN (21:21)
[2022-03-01] MEDS: TAMSULOSIN HCL 0.4 MG CAP PO SCH (21:23)
[2022-03-02] MEDS: GABAPENTIN 100 MG CAPSULE PO SCH ×3 (06:28→21:08)
[2022-03-02] MEDS: MICONAZOLE NITRATE 28 GM TUBE TP SCH ×2 (09:52→21:09)
[2022-03-02] MEDS: ENALAPRIL MALEATE 5 MG TABLET PO SCH (09:53)
[2022-03-02] MEDS: EMTRICITABINE/TENOFOV ALAFENAM (DESCOVY) TABLET PO SCH (09:53)
[2022-03-02] MEDS: PRENATAL VITAMINS W/ FOLIC ACID TABLET (FP) PO SCH (09:54)
[2022-03-02] MEDS: TAMSULOSIN HCL 0.4 MG CAP PO SCH ×2 (09:54→21:08)
[2022-03-02] MEDS: FINASTERIDE 5 MG TABLET (FP) PO SCH (09:54)
[2022-03-02] MEDS: NICOTINE 14 MG/24 HOURS TOPICAL PATCH TD SCH (09:55)
[2022-03-02] MEDS: DARUNAVIR 800 MG/COBICISTAT 150MG TABLET PO SCH (10:42)
[2022-03-02] MEDS: IBUPROFEN 400 MG TABLET (FP) PO PRN (17:29)
[2022-03-02] MEDS: THIAMINE HCL 100 MG TABLET (FP) PO SCH (21:08)
[2022-03-02] MEDS: traZODone HCL 100 MG TABLET (FP) PO SCH (21:09)
[2022-03-03] MEDS: GABAPENTIN 100 MG CAPSULE PO SCH ×3 (06:48→21:21)
[2022-03-03] MEDS: ENALAPRIL MALEATE 5 MG TABLET PO SCH (10:02)
[2022-03-03] MEDS: FINASTERIDE 5 MG TABLET (FP) PO SCH (10:02)
[2022-03-03] MEDS: TAMSULOSIN HCL 0.4 MG CAP PO SCH ×2 (10:02→21:21)
[2022-03-03] MEDS: PRENATAL VITAMINS W/ FOLIC ACID TABLET (FP) PO SCH (10:02)
[2022-03-03] MEDS: DARUNAVIR 800 MG/COBICISTAT 150MG TABLET PO SCH (10:02)
[2022-03-03] MEDS: MICONAZOLE NITRATE 28 GM TUBE TP SCH ×2 (10:03→21:21)
[2022-03-03] MEDS: EMTRICITABINE/TENOFOV ALAFENAM (DESCOVY) TABLET PO SCH (10:04)
[2022-03-03] MEDS: NICOTINE 14 MG/24 HOURS TOPICAL PATCH TD SCH (10:04)
[2022-03-03] MEDS: MELATONIN 5 MG TABLETS PO PRN (21:20)
[2022-03-03] MEDS: THIAMINE HCL 100 MG TABLET (FP) PO SCH (21:20)
[2022-03-03] MEDS: traZODone HCL 100 MG TABLET (FP) PO SCH (21:21)
[2022-03-04] MEDS: GABAPENTIN 100 MG CAPSULE PO SCH ×3 (06:35→21:28)
[2022-03-04] MEDS: PRENATAL VITAMINS W/ FOLIC ACID TABLET (FP) PO SCH (09:41)
[2022-03-04] MEDS: TAMSULOSIN HCL 0.4 MG CAP PO SCH ×2 (09:41→21:28)
[2022-03-04] MEDS: EMTRICITABINE/TENOFOV ALAFENAM (DESCOVY) TABLET PO SCH (09:42)
[2022-03-04] MEDS: DARUNAVIR 800 MG/COBICISTAT 150MG TABLET PO SCH (09:42)
[2022-03-04] MEDS: ENALAPRIL MALEATE 5 MG TABLET PO SCH (09:43)
[2022-03-04] MEDS: MICONAZOLE NITRATE 28 GM TUBE TP SCH ×2 (09:43→21:29)
[2022-03-04] MEDS: NICOTINE 14 MG/24 HOURS TOPICAL PATCH TD SCH (09:43)
[2022-03-04] MEDS: FINASTERIDE 5 MG TABLET (FP) PO SCH (09:43)
[2022-03-04] MEDS: traZODone HCL 100 MG TABLET (FP) PO SCH (21:28)
[2022-03-04] MEDS: THIAMINE HCL 100 MG TABLET (FP) PO SCH (21:28)
[2022-03-04] MEDS: MELATONIN 5 MG TABLETS PO PRN (21:28)
[2022-03-05] MEDS: GABAPENTIN 100 MG CAPSULE PO SCH ×3 (06:39→21:24)
[2022-03-05] MEDS: PRENATAL VITAMINS W/ FOLIC ACID TABLET (FP) PO SCH (09:59)
[2022-03-05] MEDS: EMTRICITABINE/TENOFOV ALAFENAM (DESCOVY) TABLET PO SCH (09:59)
[2022-03-05] MEDS: DARUNAVIR 800 MG/COBICISTAT 150MG TABLET PO SCH (09:59)
[2022-03-05] MEDS: TAMSULOSIN HCL 0.4 MG CAP PO SCH ×2 (09:59→21:24)
[2022-03-05] MEDS: FINASTERIDE 5 MG TABLET (FP) PO SCH (10:00)
[2022-03-05] MEDS: ENALAPRIL MALEATE 10 MG TABLET PO SCH (10:01)
[2022-03-05] MEDS: MICONAZOLE NITRATE 28 GM TUBE TP SCH ×2 (10:01→21:24)
[2022-03-05] MEDS: NICOTINE 14 MG/24 HOURS TOPICAL PATCH TD SCH (10:01)
[2022-03-05] MEDS: MELATONIN 5 MG TABLETS PO PRN (21:23)
[2022-03-05] MEDS: THIAMINE HCL 100 MG TABLET (FP) PO SCH (21:23)
[2022-03-05] MEDS: traZODone HCL 100 MG TABLET (FP) PO SCH (21:24)
[2022-03-06] MEDS: GABAPENTIN 100 MG CAPSULE PO SCH ×3 (06:53→21:23)
[2022-03-06] MEDS: FINASTERIDE 5 MG TABLET (FP) PO SCH (09:56)
[2022-03-06] MEDS: PRENATAL VITAMINS W/ FOLIC ACID TABLET (FP) PO SCH (09:56)
[2022-03-06] MEDS: TAMSULOSIN HCL 0.4 MG CAP PO SCH ×2 (09:56→21:24)
[2022-03-06] MEDS: NICOTINE 14 MG/24 HOURS TOPICAL PATCH TD SCH (09:56)
[2022-03-06] MEDS: ENALAPRIL MALEATE 10 MG TABLET PO SCH (09:56)
[2022-03-06] MEDS: DARUNAVIR 800 MG/COBICISTAT 150MG TABLET PO SCH (09:57)
[2022-03-06] MEDS: EMTRICITABINE/TENOFOV ALAFENAM (DESCOVY) TABLET PO SCH (09:57)
[2022-03-06] MEDS: MICONAZOLE NITRATE 28 GM TUBE TP SCH ×2 (09:58→21:26)
[2022-03-06] MEDS ORDERED: methaDONE HCL 10 MG TABLET PO SCH (10:00)
[2022-03-06] MEDS: ACAMPROSATE CALCIUM 333 MG TABLET.DR PO SCH ×2 (14:00→21:23)
[2022-03-06] MEDS: THIAMINE HCL 100 MG TABLET (FP) PO SCH (21:24)
[2022-03-06] MEDS: traZODone HCL 50 MG TABLET (FP) PO SCH (21:25)
[2022-03-07] MEDS: GABAPENTIN 100 MG CAPSULE PO SCH ×3 (06:11→21:18)
[2022-03-07] MEDS: ACAMPROSATE CALCIUM 333 MG TABLET.DR PO SCH ×3 (06:11→21:17)
[2022-03-07] MEDS: TAMSULOSIN HCL 0.4 MG CAP PO SCH ×2 (09:45→21:17)
[2022-03-07] MEDS: EMTRICITABINE/TENOFOV ALAFENAM (DESCOVY) TABLET PO SCH (09:45)
[2022-03-07] MEDS: MICONAZOLE NITRATE 28 GM TUBE TP SCH ×2 (09:46→21:18)
[2022-03-07] MEDS: NICOTINE 14 MG/24 HOURS TOPICAL PATCH TD SCH (09:46)
[2022-03-07] MEDS: PRENATAL VITAMINS W/ FOLIC ACID TABLET (FP) PO SCH (09:46)
[2022-03-07] MEDS: FINASTERIDE 5 MG TABLET (FP) PO SCH (09:47)
[2022-03-07] MEDS: ENALAPRIL MALEATE 10 MG TABLET PO SCH (09:47)
[2022-03-07] MEDS: DARUNAVIR 800 MG/COBICISTAT 150MG TABLET PO SCH (09:47)
[2022-03-07] MEDS: THIAMINE HCL 100 MG TABLET (FP) PO SCH (21:17)
[2022-03-07] MEDS: MELATONIN 5 MG TABLETS PO PRN (21:17)
[2022-03-07] MEDS: traZODone HCL 50 MG TABLET (FP) PO SCH (21:17)
[2022-03-08] MEDS: ACAMPROSATE CALCIUM 333 MG TABLET.DR PO SCH ×3 (06:29→21:10)
[2022-03-08] MEDS: GABAPENTIN 100 MG CAPSULE PO SCH ×3 (06:29→21:11)
[2022-03-08] MEDS: ENALAPRIL MALEATE 10 MG TABLET PO SCH (09:58)
[2022-03-08] MEDS: FINASTERIDE 5 MG TABLET (FP) PO SCH (09:58)
[2022-03-08] MEDS: TAMSULOSIN HCL 0.4 MG CAP PO SCH ×2 (09:58→21:10)
[2022-03-08] MEDS: DARUNAVIR 800 MG/COBICISTAT 150MG TABLET PO SCH (09:59)
[2022-03-08] MEDS: NICOTINE 14 MG/24 HOURS TOPICAL PATCH TD SCH (09:59)
[2022-03-08] MEDS: EMTRICITABINE/TENOFOV ALAFENAM (DESCOVY) TABLET PO SCH (09:59)
[2022-03-08] MEDS: PRENATAL VITAMINS W/ FOLIC ACID TABLET (FP) PO SCH (09:59)
[2022-03-08] MEDS: MICONAZOLE NITRATE 28 GM TUBE TP SCH ×2 (10:00→21:11)
[2022-03-08] MEDS: THIAMINE HCL 100 MG TABLET (FP) PO SCH (21:10)
[2022-03-08] MEDS: MELATONIN 5 MG TABLETS PO PRN (21:10)
[2022-03-08] MEDS: traZODone HCL 50 MG TABLET (FP) PO SCH (21:10)
[2022-03-09] MEDS: ACAMPROSATE CALCIUM 333 MG TABLET.DR PO SCH ×3 (06:23→21:14)
[2022-03-09] MEDS: GABAPENTIN 100 MG CAPSULE PO SCH (06:24)
[2022-03-09] MEDS ORDERED: cloNIDine HCL 0.1 MG TABLET PO ONE (07:45)
[2022-03-09] MEDS: ENALAPRIL MALEATE 10 MG TABLET PO SCH (10:00)
[2022-03-09] MEDS: DARUNAVIR 800 MG/COBICISTAT 150MG TABLET PO SCH (10:00)
[2022-03-09] MEDS: PRENATAL VITAMINS W/ FOLIC ACID TABLET (FP) PO SCH (10:00)
[2022-03-09] MEDS: TAMSULOSIN HCL 0.4 MG CAP PO SCH ×2 (10:00→21:15)
[2022-03-09] MEDS: EMTRICITABINE/TENOFOV ALAFENAM (DESCOVY) TABLET PO SCH (10:00)
[2022-03-09] MEDS: MICONAZOLE NITRATE 28 GM TUBE TP SCH ×2 (10:01→21:16)
[2022-03-09] MEDS: NICOTINE 14 MG/24 HOURS TOPICAL PATCH TD SCH (10:01)
[2022-03-09] MEDS: FINASTERIDE 5 MG TABLET (FP) PO SCH (10:02)
[2022-03-09] MEDS ORDERED: cloNIDine HCL 0.1 MG TABLET PO PRN (10:48)
[2022-03-09] MEDS: THIAMINE HCL 100 MG TABLET (FP) PO SCH (21:14)
[2022-03-09] MEDS: traZODone HCL 50 MG TABLET (FP) PO SCH (21:15)
[2022-03-10] MEDS: ACAMPROSATE CALCIUM 333 MG TABLET.DR PO SCH ×3 (06:23→21:02)
[2022-03-10] MEDS: ENALAPRIL MALEATE 10 MG TABLET PO SCH (09:57)
[2022-03-10] MEDS: TAMSULOSIN HCL 0.4 MG CAP PO SCH ×2 (09:57→21:02)
[2022-03-10] MEDS: EMTRICITABINE/TENOFOV ALAFENAM (DESCOVY) TABLET PO SCH (09:58)
[2022-03-10] MEDS: DARUNAVIR 800 MG/COBICISTAT 150MG TABLET PO SCH (09:58)
[2022-03-10] MEDS: PRENATAL VITAMINS W/ FOLIC ACID TABLET (FP) PO SCH (09:58)
[2022-03-10] MEDS: FINASTERIDE 5 MG TABLET (FP) PO SCH (09:58)
[2022-03-10] MEDS: MICONAZOLE NITRATE 28 GM TUBE TP SCH ×2 (09:59→21:03)
[2022-03-10] MEDS: NICOTINE 14 MG/24 HOURS TOPICAL PATCH TD SCH (09:59)
[2022-03-10] MEDS: LIDOCAINE 5% TOPICAL PATCH TP SCH (15:06)
[2022-03-10] MEDS: traZODone HCL 50 MG TABLET (FP) PO SCH (21:02)
[2022-03-10] MEDS: LIDOCAINE PATCH REMOVAL MC SCH (21:02)
[2022-03-10] MEDS: THIAMINE HCL 100 MG TABLET (FP) PO SCH (21:02)
[2022-03-11] MEDS: ACAMPROSATE CALCIUM 333 MG TABLET.DR PO SCH ×3 (06:19→21:02)
[2022-03-11] MEDS: LIDOCAINE 5% TOPICAL PATCH TP SCH (09:58)
[2022-03-11] MEDS: TAMSULOSIN HCL 0.4 MG CAP PO SCH ×2 (10:01→21:02)
[2022-03-11] MEDS: EMTRICITABINE/TENOFOV ALAFENAM (DESCOVY) TABLET PO SCH (10:02)
[2022-03-11] MEDS: DARUNAVIR 800 MG/COBICISTAT 150MG TABLET PO SCH (10:02)
[2022-03-11] MEDS: NICOTINE 14 MG/24 HOURS TOPICAL PATCH TD SCH (10:02)
[2022-03-11] MEDS: FINASTERIDE 5 MG TABLET (FP) PO SCH (10:02)
[2022-03-11] MEDS: MICONAZOLE NITRATE 28 GM TUBE TP SCH ×2 (10:02→22:23)
[2022-03-11] MEDS: PRENATAL VITAMINS W/ FOLIC ACID TABLET (FP) PO SCH (10:02)
[2022-03-11] MEDS: ENALAPRIL MALEATE 10 MG TABLET PO SCH (10:40)
[2022-03-11] MEDS: traZODone HCL 50 MG TABLET (FP) PO SCH (21:02)
[2022-03-11] MEDS: MELATONIN 5 MG TABLETS PO PRN (21:02)
[2022-03-11] MEDS: THIAMINE HCL 100 MG TABLET (FP) PO SCH (21:02)
[2022-03-11] MEDS: LIDOCAINE PATCH REMOVAL MC SCH (21:03)
[2022-03-12] MEDS: ACAMPROSATE CALCIUM 333 MG TABLET.DR PO SCH ×3 (06:33→21:15)
[2022-03-12] MEDS: MICONAZOLE NITRATE 28 GM TUBE TP SCH ×2 (09:49→21:16)
[2022-03-12] MEDS: TAMSULOSIN HCL 0.4 MG CAP PO SCH ×2 (09:50→21:15)
[2022-03-12] MEDS: LIDOCAINE 5% TOPICAL PATCH TP SCH (09:52)
[2022-03-12] MEDS: FINASTERIDE 5 MG TABLET (FP) PO SCH (09:53)
[2022-03-12] MEDS: NICOTINE 14 MG/24 HOURS TOPICAL PATCH TD SCH (09:53)
[2022-03-12] MEDS: PRENATAL VITAMINS W/ FOLIC ACID TABLET (FP) PO SCH (09:53)
[2022-03-12] MEDS: ENALAPRIL MALEATE 10 MG TABLET PO SCH (09:53)
[2022-03-12] MEDS: EMTRICITABINE/TENOFOV ALAFENAM (DESCOVY) TABLET PO SCH (10:25)
[2022-03-12] MEDS: DARUNAVIR 800 MG/COBICISTAT 150MG TABLET PO SCH (10:25)
[2022-03-12 10:57] VITALS: RESP 18
[2022-03-12] MEDS: traZODone HCL 50 MG TABLET (FP) PO SCH (21:15)
[2022-03-12] MEDS: MELATONIN 5 MG TABLETS PO PRN (21:15)
[2022-03-12] MEDS: THIAMINE HCL 100 MG TABLET (FP) PO SCH (21:15)
[2022-03-12] MEDS: LIDOCAINE PATCH REMOVAL MC SCH (21:16)
[2022-03-13] MEDS: ACAMPROSATE CALCIUM 333 MG TABLET.DR PO SCH (06:13)
[2022-03-13] MEDS: DARUNAVIR 800 MG/COBICISTAT 150MG TABLET PO SCH (09:02)
[2022-03-13] MEDS: NICOTINE 14 MG/24 HOURS TOPICAL PATCH TD SCH (09:03)
[2022-03-13] MEDS: EMTRICITABINE/TENOFOV ALAFENAM (DESCOVY) TABLET PO SCH (09:03)
[2022-03-13] MEDS: PRENATAL VITAMINS W/ FOLIC ACID TABLET (FP) PO SCH (09:03)
[2022-03-13] MEDS: MICONAZOLE NITRATE 28 GM TUBE TP SCH (09:04)
[2022-03-13] MEDS: TAMSULOSIN HCL 0.4 MG CAP PO SCH (09:04)
[2022-03-13] MEDS: FINASTERIDE 5 MG TABLET (FP) PO SCH (09:04)
[2022-03-13] MEDS: ENALAPRIL MALEATE 10 MG TABLET PO SCH (09:05)
[2022-03-13] MEDS: LIDOCAINE 5% TOPICAL PATCH TP SCH (09:10)
[2022-03-13 09:59] VITALS: BP 164/93; PULSE 93; TEMP 97.7
== END 2022-03-13 10:40 | disposition home or self-care (01) | DRG 895 ==
LOC: YASAS 14:18 → Y3E 14:20
PROVIDERS: ADMIT Allergy & Immunology; ATTEND Psychiatry & Neurology Pain Medicine
PROC: HZ42ZZZ Group Counseling for Substance Abuse Treatment, Cognitive-Behavioral (ICD-10-PCS; principal; 2022-02-27)
DX: F10.20 Alcohol dependence, uncomplicated (principal); F11.20 Opioid dependence, uncomplicated; B20 Human immunodeficiency virus [HIV] disease; F17.210 Nicotine dependence, cigarettes, uncomplicated; F32.A Depression, unspecified; J44.9 Chronic obstructive pulmonary disease, unspecified; K74.60 Unspecified cirrhosis of liver; N40.1 Benign prostatic hyperplasia with lower urinary tract symptoms; N39.43 Post-void dribbling; B35.6 Tinea cruris; Z96.653 Presence of artificial knee joint, bilateral; Z86.19 Personal history of other infectious and parasitic diseases
CPT/HCPCS: 81003

== ENCOUNTER 2022-08-02 13:11 | Inpatient (IN) | payer OTHER ==
[2022-08-02 14:34] VITALS: BMI 25.1
[2022-08-02] MEDS ORDERED: IBUPROFEN 400 MG TABLET (FP) PO PRN (16:55)
[2022-08-02] MEDS ORDERED: POLYETHYLENE GLYCOL (HEALTHYLAX) 3350 17 GM PACKET PO PRN (16:55)
[2022-08-02] MEDS ORDERED: METHOCARBAMOL 500 MG TABLET PO PRN (16:55)
[2022-08-02] MEDS ORDERED: NICOTINE 10 MG CARTRIDGE (INHALER) IH PRN (16:55)
[2022-08-02] MEDS ORDERED: NALOXONE HCL (KLOXXADO) 8 MG SPRAY NS PRN (16:55)
[2022-08-02] MEDS ORDERED: LOPERAMIDE HCL 2 MG CAPSULE PO PRN (16:55)
[2022-08-02] MEDS ORDERED: BISMUTH SUBSALICYLATE 524 MG/30 ML PO PRN (16:55)
[2022-08-02] MEDS ORDERED: ACETAMINOPHEN 325 MG TABLET (FP) PO PRN ×2 (16:55)
[2022-08-02] MEDS ORDERED: IBUPROFEN 600 MG TABLET (FP) PO PRN (16:55)
[2022-08-02] MEDS ORDERED: DICYCLOMINE HCL 10 MG CAPSULE PO PRN (16:55)
[2022-08-02] MEDS ORDERED: BENZOCAINE/MENTHOL (CHLORASEPTIC ) LOZENGE MM PRN (16:55)
[2022-08-02] MEDS ORDERED: MAGNESIUM HYDROX 2400MG/30ML ORAL SUSPENSION 30 ML CUP PO PRN (16:55)
[2022-08-02] MEDS ORDERED: MAG HYDROX/AL HYDROX/SIMETH 30 ML UNIT-DOSE CUP PO PRN (16:55)
[2022-08-02] MEDS ORDERED: ONDANSETRON *ODT* 4 MG TABLET SL PRN (16:55)
[2022-08-02] MEDS ORDERED: hydrOXYzine PAMOATE 25 MG CAPSULE (FP) PO PRN (16:55)
[2022-08-02] MEDS: LIDOCAINE PATCH REMOVAL MC SCH (22:47)
[2022-08-02] MEDS: MELATONIN 5 MG TABLETS PO SCH (22:48)
[2022-08-02] MEDS: THIAMINE HCL 100 MG TABLET (FP) PO SCH (22:48)
[2022-08-03] MEDS ORDERED: diazePAM 5 MG TABLET PO PRN (09:14)
[2022-08-03] MEDS ORDERED: methaDONE HCL 10 MG TABLET PO SCH (09:15)
[2022-08-03] MEDS ORDERED: ALBUTEROL SO4 HFA INHALER IH PRN (09:30)
[2022-08-03] MEDS: LIDOCAINE 5% TOPICAL PATCH TP SCH (10:14)
[2022-08-03] MEDS: PRENATAL VITAMINS W/ FOLIC ACID TABLET (FP) PO SCH (10:14)
[2022-08-03] MEDS: diazePAM 5 MG TABLET PO SCH ×3 (10:15→22:44)
[2022-08-03 10:48] LABS: HEMATOCRIT 40.6 % (35.4-49); HEMOGLOBIN 13.5 GM/dL (11.7-16.9); MCH 33.6 pg (25.7-33.7); MCHC 33.3 g/dl (32.0-35.9); MEAN PLT VOLUME 10.3 fl (7.5-11.1); PLATELET COUNT 113 10^3/uL (134-434); RBC 4.02 M/mm3 (4.00-5.60); RDW 14.4 % (11.9-15.9); WHITE BLOOD COUNT 2.5 K/mm3 (4.0-10.0)
[2022-08-03 11:03] LABS: ALBUMIN 3.4 g/dl (3.4-5.0); BLOOD UREA NITROGEN 17.1 mg/dL (7-18); CREATININE 1.2 mg/dL (0.55-1.3)
[2022-08-03 11:04] LABS: BILIRUBIN,TOTAL 0.5 mg/dL (0.2-1); TOT PROT 6.2 g/dl (6.4-8.2)
[2022-08-03 11:05] LABS: CALCIUM 8.7 mg/dL (8.5-10.1)
[2022-08-03] MEDS: ENALAPRIL MALEATE 5 MG TABLET PO SCH (11:33)
[2022-08-03] MEDS: DARUNAVIR 800 MG/COBICISTAT 150MG TABLET PO SCH (11:33)
[2022-08-03] MEDS: EMTRICITABINE/TENOFOV ALAFENAM (DESCOVY) TABLET PO SCH (11:33)
[2022-08-03] MEDS: GABAPENTIN 300 MG CAPSULE PO SCH (11:35)
[2022-08-03] MEDS: FINASTERIDE 5 MG TABLET (FP) PO SCH (11:44)
[2022-08-03] MEDS: MELATONIN 5 MG TABLETS PO SCH (22:40)
[2022-08-03] MEDS: traZODone HCL 100 MG TABLET (FP) PO SCH (22:42)
[2022-08-03] MEDS: THIAMINE HCL 100 MG TABLET (FP) PO SCH (22:43)
[2022-08-03] MEDS: TAMSULOSIN HCL 0.4 MG CAP PO SCH (22:43)
[2022-08-03] MEDS: LIDOCAINE PATCH REMOVAL MC SCH (23:04)
[2022-08-04] MEDS: diazePAM 5 MG TABLET PO SCH ×4 (06:47→22:26)
[2022-08-04] MEDS: PRENATAL VITAMINS W/ FOLIC ACID TABLET (FP) PO SCH (10:20)
[2022-08-04] MEDS: GABAPENTIN 300 MG CAPSULE PO SCH (10:20)
[2022-08-04] MEDS: ENALAPRIL MALEATE 5 MG TABLET PO SCH (10:22)
[2022-08-04] MEDS: DARUNAVIR 800 MG/COBICISTAT 150MG TABLET PO SCH (10:23)
[2022-08-04] MEDS: EMTRICITABINE/TENOFOV ALAFENAM (DESCOVY) TABLET PO SCH (10:23)
[2022-08-04] MEDS: LIDOCAINE 5% TOPICAL PATCH TP SCH (10:23)
[2022-08-04] MEDS: FINASTERIDE 5 MG TABLET (FP) PO SCH (11:16)
[2022-08-04] MEDS: THIAMINE HCL 100 MG TABLET (FP) PO SCH (22:26)
[2022-08-04] MEDS: MELATONIN 5 MG TABLETS PO SCH (22:26)
[2022-08-04] MEDS: LIDOCAINE PATCH REMOVAL MC SCH (22:26)
[2022-08-04] MEDS: traZODone HCL 100 MG TABLET (FP) PO SCH (22:28)
[2022-08-04] MEDS: TAMSULOSIN HCL 0.4 MG CAP PO SCH (22:28)
[2022-08-05] MEDS: diazePAM 5 MG TABLET PO SCH ×3 (05:58→22:03)
[2022-08-05] MEDS: GABAPENTIN 300 MG CAPSULE PO SCH (10:22)
[2022-08-05] MEDS: PRENATAL VITAMINS W/ FOLIC ACID TABLET (FP) PO SCH (10:22)
[2022-08-05] MEDS: DARUNAVIR 800 MG/COBICISTAT 150MG TABLET PO SCH (10:23)
[2022-08-05] MEDS: EMTRICITABINE/TENOFOV ALAFENAM (DESCOVY) TABLET PO SCH (10:23)
[2022-08-05] MEDS: LIDOCAINE 5% TOPICAL PATCH TP SCH (10:23)
[2022-08-05] MEDS: FINASTERIDE 5 MG TABLET (FP) PO SCH (10:24)
[2022-08-05] MEDS: ENALAPRIL MALEATE 5 MG TABLET PO SCH (10:24)
[2022-08-05] MEDS: traZODone HCL 100 MG TABLET (FP) PO SCH (22:02)
[2022-08-05] MEDS: THIAMINE HCL 100 MG TABLET (FP) PO SCH (22:04)
[2022-08-05] MEDS: LIDOCAINE PATCH REMOVAL MC SCH (22:04)
[2022-08-05] MEDS: MELATONIN 5 MG TABLETS PO SCH (22:04)
[2022-08-05] MEDS: TAMSULOSIN HCL 0.4 MG CAP PO SCH (22:59)
[2022-08-06] MEDS: diazePAM 5 MG TABLET PO SCH ×2 (05:44→18:00)
[2022-08-06 09:40] VITALS: RESP 18
[2022-08-06] MEDS: LIDOCAINE 5% TOPICAL PATCH TP SCH (10:48)
[2022-08-06] MEDS: ENALAPRIL MALEATE 5 MG TABLET PO SCH (10:49)
[2022-08-06] MEDS: GABAPENTIN 300 MG CAPSULE PO SCH (10:49)
[2022-08-06] MEDS: FINASTERIDE 5 MG TABLET (FP) PO SCH (10:49)
[2022-08-06] MEDS: EMTRICITABINE/TENOFOV ALAFENAM (DESCOVY) TABLET PO SCH (10:50)
[2022-08-06] MEDS: PRENATAL VITAMINS W/ FOLIC ACID TABLET (FP) PO SCH (10:51)
[2022-08-06] MEDS: DARUNAVIR 800 MG/COBICISTAT 150MG TABLET PO SCH (10:51)
[2022-08-06] MEDS: traZODone HCL 100 MG TABLET (FP) PO SCH (22:24)
[2022-08-06] MEDS: THIAMINE HCL 100 MG TABLET (FP) PO SCH (22:24)
[2022-08-06] MEDS: MELATONIN 5 MG TABLETS PO SCH (22:24)
[2022-08-06] MEDS: TAMSULOSIN HCL 0.4 MG CAP PO SCH (22:24)
[2022-08-06] MEDS: LIDOCAINE PATCH REMOVAL MC SCH (22:25)
[2022-08-07] MEDS ORDERED: diazePAM 5 MG TABLET PO ONE (06:00)
[2022-08-07] MEDS: GABAPENTIN 300 MG CAPSULE PO SCH (10:17)
[2022-08-07] MEDS: ENALAPRIL MALEATE 5 MG TABLET PO SCH (10:17)
[2022-08-07] MEDS: EMTRICITABINE/TENOFOV ALAFENAM (DESCOVY) TABLET PO SCH (10:18)
[2022-08-07] MEDS: DARUNAVIR 800 MG/COBICISTAT 150MG TABLET PO SCH (10:18)
[2022-08-07] MEDS: PRENATAL VITAMINS W/ FOLIC ACID TABLET (FP) PO SCH (10:18)
[2022-08-07] MEDS: LIDOCAINE 5% TOPICAL PATCH TP SCH (10:19)
[2022-08-07] MEDS: FINASTERIDE 5 MG TABLET (FP) PO SCH (10:19)
[2022-08-07 13:03] VITALS: BP 155/87; PULSE 59; TEMP 97.5
== END 2022-08-07 15:45 | disposition other institution (70) | DRG 897 ==
LOC: YASAS 13:11 → Y3N 17:18
PROVIDERS: ADMIT Allergy & Immunology; ATTEND Surgery
PROC: HZ2ZZZZ Detoxification Services for Substance Abuse Treatment (ICD-10-PCS; principal; 2022-08-02)
DX: F11.23 Opioid dependence with withdrawal (principal); F10.230 Alcohol dependence with withdrawal, uncomplicated; F17.210 Nicotine dependence, cigarettes, uncomplicated; Z21 Asymptomatic human immunodeficiency virus [HIV] infection status; D72.829 Elevated white blood cell count, unspecified; G47.00 Insomnia, unspecified; J44.9 Chronic obstructive pulmonary disease, unspecified; K74.60 Unspecified cirrhosis of liver; M17.0 Bilateral primary osteoarthritis of knee; N40.1 Benign prostatic hyperplasia with lower urinary tract symptoms; N39.43 Post-void dribbling
CPT/HCPCS: 36415; 80053; 85027; 86780; C9803-CS; U0003; U0005

== ENCOUNTER 2022-08-07 15:36 | Inpatient (IN) | payer OTHER ==
[2022-08-07] MEDS ORDERED: P-EPHED 60MG/TRIPROLIDI 2.5MG TABLET PO PRN (18:03)
[2022-08-07] MEDS ORDERED: BENZOCAINE/MENTHOL (CHLORASEPTIC ) LOZENGE MM PRN (18:03)
[2022-08-07] MEDS ORDERED: MAGNESIUM HYDROX 2400MG/30ML ORAL SUSPENSION 30 ML CUP PO PRN (18:03)
[2022-08-07] MEDS ORDERED: guaiFENesin 200 MG/10 ML 10 ML UNIT-DOSE CUPS PO PRN (18:03)
[2022-08-07] MEDS ORDERED: NICOTINE 10 MG CARTRIDGE (INHALER) IH PRN (18:03)
[2022-08-07] MEDS ORDERED: ACETAMINOPHEN 325 MG TABLET (FP) PO PRN (18:03)
[2022-08-07] MEDS ORDERED: LOPERAMIDE HCL 2 MG CAPSULE PO PRN (18:03)
[2022-08-07] MEDS ORDERED: MAG HYDROX/AL HYDROX/SIMETH 30 ML UNIT-DOSE CUP PO PRN (18:03)
[2022-08-07] MEDS ORDERED: POLYETHYLENE GLYCOL (HEALTHYLAX) 3350 17 GM PACKET PO PRN (18:03)
[2022-08-07] MEDS ORDERED: ALBUTEROL SO4 HFA INHALER IH PRN (18:04)
[2022-08-07] MEDS: THIAMINE HCL 100 MG TABLET (FP) PO SCH (21:10)
[2022-08-07] MEDS: MELATONIN 5 MG TABLETS PO SCH (21:10)
[2022-08-07] MEDS: traZODone HCL 100 MG TABLET (FP) PO SCH (21:10)
[2022-08-07] MEDS: TAMSULOSIN HCL 0.4 MG CAP PO SCH (21:10)
[2022-08-07] MEDS: hydrOXYzine PAMOATE 25 MG CAPSULE (FP) PO PRN (21:10)
[2022-08-08] MEDS ORDERED: methaDONE HCL 40 MG DISPERSABLE TABLET PO SCH (07:15)
[2022-08-08] MEDS: PRENATAL VITAMINS W/ FOLIC ACID TABLET (FP) PO SCH (09:31)
[2022-08-08] MEDS: ENALAPRIL MALEATE 5 MG TABLET PO SCH (09:31)
[2022-08-08] MEDS: GABAPENTIN 300 MG CAPSULE PO SCH (09:31)
[2022-08-08] MEDS: DARUNAVIR 800 MG/COBICISTAT 150MG TABLET PO SCH (09:32)
[2022-08-08] MEDS: EMTRICITABINE/TENOFOV ALAFENAM (DESCOVY) TABLET PO SCH (09:32)
[2022-08-08] MEDS: FINASTERIDE 5 MG TABLET (FP) PO SCH (09:33)
[2022-08-08] MEDS: NICOTINE 7 MG/24 HOURS TOPICAL PATCH TD SCH (09:34)
[2022-08-08] MEDS: THIAMINE HCL 100 MG TABLET (FP) PO SCH (21:29)
[2022-08-08] MEDS: TAMSULOSIN HCL 0.4 MG CAP PO SCH (21:30)
[2022-08-08] MEDS: traZODone HCL 100 MG TABLET (FP) PO SCH (21:30)
[2022-08-08] MEDS: MELATONIN 5 MG TABLETS PO SCH (21:30)
[2022-08-08] MEDS: hydrOXYzine PAMOATE 25 MG CAPSULE (FP) PO PRN (21:30)
[2022-08-09] MEDS: PRENATAL VITAMINS W/ FOLIC ACID TABLET (FP) PO SCH (10:24)
[2022-08-09] MEDS: NICOTINE 7 MG/24 HOURS TOPICAL PATCH TD SCH (10:24)
[2022-08-09] MEDS: GABAPENTIN 300 MG CAPSULE PO SCH (10:24)
[2022-08-09] MEDS: EMTRICITABINE/TENOFOV ALAFENAM (DESCOVY) TABLET PO SCH (10:24)
[2022-08-09] MEDS: ENALAPRIL MALEATE 5 MG TABLET PO SCH (10:25)
[2022-08-09] MEDS: DARUNAVIR 800 MG/COBICISTAT 150MG TABLET PO SCH (10:25)
[2022-08-09] MEDS: FINASTERIDE 5 MG TABLET (FP) PO SCH (10:25)
[2022-08-09] MEDS ORDERED: NICOTINE 7 MG/24 HOURS TOPICAL PATCH TD PRN (12:11)
[2022-08-09] MEDS: LACTULOSE 20 GM/30 ML UDC (FOR ORAL USE ONLY) PO SCH ×2 (19:03→21:14)
[2022-08-09] MEDS: THIAMINE HCL 100 MG TABLET (FP) PO SCH (21:14)
[2022-08-09] MEDS: TAMSULOSIN HCL 0.4 MG CAP PO SCH (21:14)
[2022-08-09] MEDS: traZODone HCL 100 MG TABLET (FP) PO SCH (21:14)
[2022-08-09] MEDS: MELATONIN 5 MG TABLETS PO SCH (21:14)
[2022-08-10] MEDS: EMTRICITABINE/TENOFOV ALAFENAM (DESCOVY) TABLET PO SCH (10:21)
[2022-08-10] MEDS: LACTULOSE 20 GM/30 ML UDC (FOR ORAL USE ONLY) PO SCH ×4 (10:21→21:36)
[2022-08-10] MEDS: DARUNAVIR 800 MG/COBICISTAT 150MG TABLET PO SCH (10:21)
[2022-08-10] MEDS: FINASTERIDE 5 MG TABLET (FP) PO SCH (10:22)
[2022-08-10] MEDS: PRENATAL VITAMINS W/ FOLIC ACID TABLET (FP) PO SCH (10:22)
[2022-08-10] MEDS: GABAPENTIN 300 MG CAPSULE PO SCH (10:22)
[2022-08-10] MEDS: ENALAPRIL MALEATE 5 MG TABLET PO SCH (10:22)
[2022-08-10] MEDS: THIAMINE HCL 100 MG TABLET (FP) PO SCH (21:36)
[2022-08-10] MEDS: TAMSULOSIN HCL 0.4 MG CAP PO SCH (21:36)
[2022-08-10] MEDS: hydrOXYzine PAMOATE 25 MG CAPSULE (FP) PO PRN (21:36)
[2022-08-10] MEDS: MELATONIN 5 MG TABLETS PO SCH (21:37)
[2022-08-10] MEDS: traZODone HCL 100 MG TABLET (FP) PO SCH (21:37)
[2022-08-11] MEDS: PRENATAL VITAMINS W/ FOLIC ACID TABLET (FP) PO SCH (09:57)
[2022-08-11] MEDS: LACTULOSE 20 GM/30 ML UDC (FOR ORAL USE ONLY) PO SCH ×4 (09:57→21:39)
[2022-08-11] MEDS: GABAPENTIN 300 MG CAPSULE PO SCH (09:59)
[2022-08-11] MEDS: DARUNAVIR 800 MG/COBICISTAT 150MG TABLET PO SCH (09:59)
[2022-08-11] MEDS: FINASTERIDE 5 MG TABLET (FP) PO SCH (09:59)
[2022-08-11] MEDS: ENALAPRIL MALEATE 5 MG TABLET PO SCH (09:59)
[2022-08-11] MEDS: EMTRICITABINE/TENOFOV ALAFENAM (DESCOVY) TABLET PO SCH (09:59)
[2022-08-11] MEDS: MELATONIN 5 MG TABLETS PO SCH (21:39)
[2022-08-11] MEDS: TAMSULOSIN HCL 0.4 MG CAP PO SCH (21:39)
[2022-08-11] MEDS: THIAMINE HCL 100 MG TABLET (FP) PO SCH (21:39)
[2022-08-11] MEDS: traZODone HCL 100 MG TABLET (FP) PO SCH (21:39)
[2022-08-12] MEDS: PRENATAL VITAMINS W/ FOLIC ACID TABLET (FP) PO SCH (09:26)
[2022-08-12] MEDS: FINASTERIDE 5 MG TABLET (FP) PO SCH (09:26)
[2022-08-12] MEDS: GABAPENTIN 300 MG CAPSULE PO SCH (09:26)
[2022-08-12] MEDS: DARUNAVIR 800 MG/COBICISTAT 150MG TABLET PO SCH (09:27)
[2022-08-12] MEDS: ENALAPRIL MALEATE 5 MG TABLET PO SCH (09:27)
[2022-08-12] MEDS: LACTULOSE 20 GM/30 ML UDC (FOR ORAL USE ONLY) PO SCH ×4 (09:27→21:18)
[2022-08-12] MEDS: EMTRICITABINE/TENOFOV ALAFENAM (DESCOVY) TABLET PO SCH (09:27)
[2022-08-12] MEDS: traZODone HCL 100 MG TABLET (FP) PO SCH (21:18)
[2022-08-12] MEDS: TAMSULOSIN HCL 0.4 MG CAP PO SCH (21:19)
[2022-08-12] MEDS: hydrOXYzine PAMOATE 25 MG CAPSULE (FP) PO PRN (21:19)
[2022-08-12] MEDS: THIAMINE HCL 100 MG TABLET (FP) PO SCH (21:19)
[2022-08-12] MEDS: MELATONIN 5 MG TABLETS PO SCH (21:19)
[2022-08-13] MEDS: LACTULOSE 20 GM/30 ML UDC (FOR ORAL USE ONLY) PO SCH ×2 (10:14→13:02)
[2022-08-13] MEDS: PRENATAL VITAMINS W/ FOLIC ACID TABLET (FP) PO SCH (10:14)
[2022-08-13] MEDS: GABAPENTIN 300 MG CAPSULE PO SCH (10:14)
[2022-08-13] MEDS: EMTRICITABINE/TENOFOV ALAFENAM (DESCOVY) TABLET PO SCH (10:15)
[2022-08-13] MEDS: FINASTERIDE 5 MG TABLET (FP) PO SCH (10:15)
[2022-08-13] MEDS: DARUNAVIR 800 MG/COBICISTAT 150MG TABLET PO SCH (10:15)
[2022-08-13] MEDS: ENALAPRIL MALEATE 5 MG TABLET PO SCH (10:15)
[2022-08-13] MEDS ORDERED: COLLOIDAL OATMEAL 1 BAR EACH TP PRN (16:05)
[2022-08-13] MEDS: MINERAL OIL/PETROLAT/WATER TOPICAL CREAM 113 GM JAR TP SCH (16:25)
[2022-08-13] MEDS: traZODone HCL 100 MG TABLET (FP) PO SCH (21:39)
[2022-08-13] MEDS: TAMSULOSIN HCL 0.4 MG CAP PO SCH (21:39)
[2022-08-13] MEDS: MELATONIN 5 MG TABLETS PO SCH (21:39)
[2022-08-13] MEDS: THIAMINE HCL 100 MG TABLET (FP) PO SCH (21:39)
[2022-08-14] MEDS: MINERAL OIL/PETROLAT/WATER TOPICAL CREAM 113 GM JAR TP SCH (10:11)
[2022-08-14] MEDS: EMTRICITABINE/TENOFOV ALAFENAM (DESCOVY) TABLET PO SCH (10:11)
[2022-08-14] MEDS: LACTULOSE 20 GM/30 ML UDC (FOR ORAL USE ONLY) PO SCH (10:11)
[2022-08-14] MEDS: DARUNAVIR 800 MG/COBICISTAT 150MG TABLET PO SCH (10:12)
[2022-08-14] MEDS: ENALAPRIL MALEATE 5 MG TABLET PO SCH (10:12)
[2022-08-14] MEDS: PRENATAL VITAMINS W/ FOLIC ACID TABLET (FP) PO SCH (10:12)
[2022-08-14] MEDS: FINASTERIDE 5 MG TABLET (FP) PO SCH (10:12)
[2022-08-14] MEDS: GABAPENTIN 300 MG CAPSULE PO SCH (10:12)
[2022-08-14] MEDS: IBUPROFEN 400 MG TABLET (FP) PO PRN (10:14)
[2022-08-14] MEDS: TAMSULOSIN HCL 0.4 MG CAP PO SCH (22:03)
[2022-08-14] MEDS: THIAMINE HCL 100 MG TABLET (FP) PO SCH (22:03)
[2022-08-14] MEDS: MELATONIN 5 MG TABLETS PO SCH (22:03)
[2022-08-14] MEDS: hydrOXYzine PAMOATE 25 MG CAPSULE (FP) PO PRN (22:03)
[2022-08-14] MEDS: traZODone HCL 100 MG TABLET (FP) PO SCH (22:03)
[2022-08-15] MEDS: LACTULOSE 20 GM/30 ML UDC (FOR ORAL USE ONLY) PO SCH (10:07)
[2022-08-15] MEDS: GABAPENTIN 300 MG CAPSULE PO SCH (10:08)
[2022-08-15] MEDS: FINASTERIDE 5 MG TABLET (FP) PO SCH (10:08)
[2022-08-15] MEDS: EMTRICITABINE/TENOFOV ALAFENAM (DESCOVY) TABLET PO SCH (10:08)
[2022-08-15] MEDS: ENALAPRIL MALEATE 5 MG TABLET PO SCH (10:08)
[2022-08-15] MEDS: DARUNAVIR 800 MG/COBICISTAT 150MG TABLET PO SCH (10:08)
[2022-08-15] MEDS: PRENATAL VITAMINS W/ FOLIC ACID TABLET (FP) PO SCH (10:09)
[2022-08-15] MEDS: MINERAL OIL/PETROLAT/WATER TOPICAL CREAM 113 GM JAR TP SCH (10:09)
[2022-08-15] MEDS: traZODone HCL 100 MG TABLET (FP) PO SCH (21:39)
[2022-08-15] MEDS: hydrOXYzine PAMOATE 25 MG CAPSULE (FP) PO PRN (21:39)
[2022-08-15] MEDS: THIAMINE HCL 100 MG TABLET (FP) PO SCH (21:39)
[2022-08-15] MEDS: TAMSULOSIN HCL 0.4 MG CAP PO SCH (21:39)
[2022-08-15] MEDS: MELATONIN 5 MG TABLETS PO SCH (21:40)
[2022-08-16] MEDS: LACTULOSE 20 GM/30 ML UDC (FOR ORAL USE ONLY) PO SCH (09:35)
[2022-08-16] MEDS: PRENATAL VITAMINS W/ FOLIC ACID TABLET (FP) PO SCH (09:36)
[2022-08-16] MEDS: FINASTERIDE 5 MG TABLET (FP) PO SCH (09:36)
[2022-08-16] MEDS: EMTRICITABINE/TENOFOV ALAFENAM (DESCOVY) TABLET PO SCH (09:36)
[2022-08-16] MEDS: ENALAPRIL MALEATE 5 MG TABLET PO SCH (09:36)
[2022-08-16] MEDS: DARUNAVIR 800 MG/COBICISTAT 150MG TABLET PO SCH (09:36)
[2022-08-16] MEDS: GABAPENTIN 300 MG CAPSULE PO SCH (09:36)
[2022-08-16] MEDS: MINERAL OIL/PETROLAT/WATER TOPICAL CREAM 113 GM JAR TP SCH (09:37)
[2022-08-16] MEDS: IBUPROFEN 400 MG TABLET (FP) PO PRN ×2 (13:26→21:32)
[2022-08-16] MEDS: MELATONIN 5 MG TABLETS PO SCH (21:31)
[2022-08-16] MEDS: TAMSULOSIN HCL 0.4 MG CAP PO SCH (21:31)
[2022-08-16] MEDS: THIAMINE HCL 100 MG TABLET (FP) PO SCH (21:31)
[2022-08-16] MEDS: traZODone HCL 100 MG TABLET (FP) PO SCH (21:31)
[2022-08-17] MEDS: LACTULOSE 20 GM/30 ML UDC (FOR ORAL USE ONLY) PO SCH (10:22)
[2022-08-17] MEDS: ENALAPRIL MALEATE 5 MG TABLET PO SCH (10:22)
[2022-08-17] MEDS: GABAPENTIN 300 MG CAPSULE PO SCH (10:22)
[2022-08-17] MEDS: MINERAL OIL/PETROLAT/WATER TOPICAL CREAM 113 GM JAR TP SCH (10:23)
[2022-08-17] MEDS: PRENATAL VITAMINS W/ FOLIC ACID TABLET (FP) PO SCH (10:23)
[2022-08-17] MEDS: DARUNAVIR 800 MG/COBICISTAT 150MG TABLET PO SCH (10:24)
[2022-08-17] MEDS: EMTRICITABINE/TENOFOV ALAFENAM (DESCOVY) TABLET PO SCH (10:25)
[2022-08-17] MEDS: FINASTERIDE 5 MG TABLET (FP) PO SCH (10:25)
[2022-08-17] MEDS: traZODone HCL 100 MG TABLET (FP) PO SCH (21:08)
[2022-08-17] MEDS: THIAMINE HCL 100 MG TABLET (FP) PO SCH (21:08)
[2022-08-17] MEDS: MELATONIN 5 MG TABLETS PO SCH (21:08)
[2022-08-17] MEDS: TAMSULOSIN HCL 0.4 MG CAP PO SCH (21:08)
[2022-08-17] MEDS: hydrOXYzine PAMOATE 25 MG CAPSULE (FP) PO PRN (21:08)
[2022-08-18] MEDS: EMTRICITABINE/TENOFOV ALAFENAM (DESCOVY) TABLET PO SCH (09:52)
[2022-08-18] MEDS: LACTULOSE 20 GM/30 ML UDC (FOR ORAL USE ONLY) PO SCH (09:52)
[2022-08-18] MEDS: DARUNAVIR 800 MG/COBICISTAT 150MG TABLET PO SCH (09:52)
[2022-08-18] MEDS: ENALAPRIL MALEATE 5 MG TABLET PO SCH (09:53)
[2022-08-18] MEDS: PRENATAL VITAMINS W/ FOLIC ACID TABLET (FP) PO SCH (09:54)
[2022-08-18] MEDS: GABAPENTIN 300 MG CAPSULE PO SCH (09:54)
[2022-08-18] MEDS: FINASTERIDE 5 MG TABLET (FP) PO SCH (09:54)
[2022-08-18] MEDS: MINERAL OIL/PETROLAT/WATER TOPICAL CREAM 113 GM JAR TP SCH (09:55)
[2022-08-18] MEDS: traZODone HCL 100 MG TABLET (FP) PO SCH (21:23)
[2022-08-18] MEDS: TAMSULOSIN HCL 0.4 MG CAP PO SCH (21:23)
[2022-08-18] MEDS: MELATONIN 5 MG TABLETS PO SCH (21:23)
[2022-08-18] MEDS: THIAMINE HCL 100 MG TABLET (FP) PO SCH (21:23)
[2022-08-19] MEDS: LACTULOSE 20 GM/30 ML UDC (FOR ORAL USE ONLY) PO SCH (10:01)
[2022-08-19] MEDS: EMTRICITABINE/TENOFOV ALAFENAM (DESCOVY) TABLET PO SCH (10:02)
[2022-08-19] MEDS: DARUNAVIR 800 MG/COBICISTAT 150MG TABLET PO SCH (10:02)
[2022-08-19] MEDS: PRENATAL VITAMINS W/ FOLIC ACID TABLET (FP) PO SCH (10:03)
[2022-08-19] MEDS: ENALAPRIL MALEATE 5 MG TABLET PO SCH (10:03)
[2022-08-19] MEDS: FINASTERIDE 5 MG TABLET (FP) PO SCH (10:03)
[2022-08-19] MEDS: GABAPENTIN 300 MG CAPSULE PO SCH (10:03)
[2022-08-19] MEDS: MINERAL OIL/PETROLAT/WATER TOPICAL CREAM 113 GM JAR TP SCH (10:04)
[2022-08-19] MEDS: traZODone HCL 100 MG TABLET (FP) PO SCH (21:23)
[2022-08-19] MEDS: THIAMINE HCL 100 MG TABLET (FP) PO SCH (21:23)
[2022-08-19] MEDS: TAMSULOSIN HCL 0.4 MG CAP PO SCH (21:23)
[2022-08-19] MEDS: MELATONIN 5 MG TABLETS PO SCH (21:23)
[2022-08-20] MEDS: DARUNAVIR 800 MG/COBICISTAT 150MG TABLET PO SCH (09:33)
[2022-08-20] MEDS: ENALAPRIL MALEATE 5 MG TABLET PO SCH (09:33)
[2022-08-20] MEDS: LACTULOSE 20 GM/30 ML UDC (FOR ORAL USE ONLY) PO SCH (09:33)
[2022-08-20] MEDS: EMTRICITABINE/TENOFOV ALAFENAM (DESCOVY) TABLET PO SCH (09:33)
[2022-08-20] MEDS: GABAPENTIN 300 MG CAPSULE PO SCH (09:34)
[2022-08-20] MEDS: PRENATAL VITAMINS W/ FOLIC ACID TABLET (FP) PO SCH (09:34)
[2022-08-20] MEDS: FINASTERIDE 5 MG TABLET (FP) PO SCH (09:34)
[2022-08-20] MEDS: MINERAL OIL/PETROLAT/WATER TOPICAL CREAM 113 GM JAR TP SCH (09:35)
[2022-08-20] MEDS: MELATONIN 5 MG TABLETS PO SCH (21:19)
[2022-08-20] MEDS: THIAMINE HCL 100 MG TABLET (FP) PO SCH (21:19)
[2022-08-20] MEDS: traZODone HCL 100 MG TABLET (FP) PO SCH (21:20)
[2022-08-20] MEDS: TAMSULOSIN HCL 0.4 MG CAP PO SCH (21:20)
[2022-08-21 06:47] VITALS: TEMP 97.9
[2022-08-21] MEDS: GABAPENTIN 300 MG CAPSULE PO SCH (10:31)
[2022-08-21] MEDS: ENALAPRIL MALEATE 5 MG TABLET PO SCH (10:31)
[2022-08-21] MEDS: LACTULOSE 20 GM/30 ML UDC (FOR ORAL USE ONLY) PO SCH (10:31)
[2022-08-21] MEDS: PRENATAL VITAMINS W/ FOLIC ACID TABLET (FP) PO SCH (10:31)
[2022-08-21] MEDS: DARUNAVIR 800 MG/COBICISTAT 150MG TABLET PO SCH (10:32)
[2022-08-21] MEDS: EMTRICITABINE/TENOFOV ALAFENAM (DESCOVY) TABLET PO SCH (10:32)
[2022-08-21] MEDS: MINERAL OIL/PETROLAT/WATER TOPICAL CREAM 113 GM JAR TP SCH (10:34)
[2022-08-21] MEDS: FINASTERIDE 5 MG TABLET (FP) PO SCH (10:35)
[2022-08-21 12:09] VITALS: BP 167/82; PULSE 64; RESP 20
== END 2022-08-21 11:25 | disposition home or self-care (01) | DRG 895 ==
LOC: YASAS 15:36 → Y3E 15:37
PROVIDERS: ADMIT Allergy & Immunology; ATTEND Allergy & Immunology
PROC: HZ42ZZZ Group Counseling for Substance Abuse Treatment, Cognitive-Behavioral (ICD-10-PCS; principal; 2022-08-07)
DX: F11.20 Opioid dependence, uncomplicated (principal); F10.20 Alcohol dependence, uncomplicated; F17.210 Nicotine dependence, cigarettes, uncomplicated; Z21 Asymptomatic human immunodeficiency virus [HIV] infection status; J42 Unspecified chronic bronchitis; J45.20 Mild intermittent asthma, uncomplicated; K74.60 Unspecified cirrhosis of liver; L30.9 Dermatitis, unspecified; M17.0 Bilateral primary osteoarthritis of knee; N40.1 Benign prostatic hyperplasia with lower urinary tract symptoms; N39.43 Post-void dribbling; Z99.89 Dependence on other enabling machines and devices; Z88.2 Allergy status to sulfonamides
CPT/HCPCS: 82140; 82962